=== PATIENT | female | born 1955 | race Caucasian/White ===

== ENCOUNTER → 2018-04-12 | Outpatient (CLI) | payer OTHER ==
[2014-05-13 07:58] VITALS: BP 120/74
[~2018-04-12] MED LIST: ASPI-612 PO; CETI10TA16 PO; CHOL200074 PO; CIPR250T30 PO; CITA40TA5 PO; CLOT15CR4 TP; EXEN10PE3 SQ; GLIM4TAB2 PO; INSU100I17 SQ; INSU100V8 SQ; KETO15CR2 TP; LEVO175T5 PO; LISI-334 PO; MAGN250T10 PO; MELO7.5T29 PO; METF100010 PO; MULT-246 PO; OMEG1CAP28 PO; PROP80CA3 PO; ROPI1TAB PO; SIMV20TA3 PO
--- NOTE | 2018-04-16 19:44 | EEG ---
DATE OF SERVICE: 04/12/2018 EEG NUMBER: [id number]. OBJECTIVE: This is a 62-year-old female patient with history of syncope or seizure-like episodes. EEG was requested to help rule out seizure. METHODS: Twenty electrodes were applied according to the international 10-20 electrode placement system. EKG monitoring, hyperventilation, intermittent photic stimulation, monopolar and bipolar montages are routinely utilized. The record was obtained on a digital system with video monitoring. FINDINGS: 1. Background: The patient was recorded in the awake, drowsy and sleep states. The overall background amplitude is 10-20 microvolts. A posterior dominant rhythm of 8-12 Hz is observed. 2. Abnormalities: No specific epileptiform discharge or electrographic seizure is seen. No focal or diffuse slowing. 3. Activation: Hyperventilation was performed with good efforts and normal response. Intermittent photic stimulation was performed with photic driving. IMPRESSION: This EEG is within the broad normal limits of the study for the awake, drowsy, and sleep states. No focal, lateralizing, specific epileptiform discharge or electrographic seizure is seen. KAITLIN BARRAZA MD DR: MOIRA/patsy JOB#: [id number] / [id number] JONE
== END | disposition home or self-care (01) ==
LOC: RT 08:47
PROVIDERS: ATTEND Psychiatry & Neurology Neurology
DX: R55 Syncope and collapse (principal)
CPT/HCPCS: 95816

== ENCOUNTER → 2018-04-15 | Outpatient (CLI) | payer OTHER ==
[2014-05-13 07:58] VITALS: BP 120/74
[~2018-04-15] MED LIST changes: +DULO60CA6 PO; +GABA100C6 PO; +METF10007 PO; +PANT20TA2 PO; +PROP40TA PO; +ROPI0.5T PO; +SITA25TA PO; +ZOLPIDEM 5 MG TABLET. PO ONE
--- NOTE | 2018-04-18 15:18 | SLEEP ---
DATE OF STUDY: OBJECTIVE: The patient is a 62-year-old female with excessive somnolence, insomnia, restless legs, observed apnea, snoring, fatigue, and awakening short of breath. She did test positive for obstructive sleep apnea 10 years ago and then had bariatric surgery and lost 60 pounds. Height 5 feet 0 inches, weight 180 pounds, body mass index 36. Jackson sleep score 10. INTERPRETATION: Sleep architecture is characterized by sleep efficiency of 89% across the 7 hours of recording time. There was decreased amount of REM sleep. Sleep latency is 3 minutes. Respiratory monitoring shows a total of 56 events, mostly obstructive, for apnea-hypopnea index of 9 events per hour sleep. The minimum oxygen saturation is 87%. The study was then run as a split night study and on 12 cm of CPAP, she had excellent control of her respiratory events. Periodic limb movements of sleep occur at the rate of 16 per hour, 2 events per hour associated with arousal. No significant cardiac arrhythmias are observed. IMPRESSION: 1. Abnormal polysomnogram showing obstructive sleep apnea and hypopnea, treatable on CPAP, 12 cm, using a Resp[employer]ics DreamWear nasal cushions, small size. 2. Also note is made of some mild periodic limb movements of sleep. RECOMMENDATIONS: 1. The patient should be established on the above CPAP setting. 2. She should avoid the supine position and pursue weight loss, and also avoid sedatives and alcohol. 3. She was originally scheduled for a multiple sleep latency test, but the study was canceled because of the positive nighttime study. If sleepiness persists despite treatment of sleep apnea, one could consider returning the patient for a multiple sleep latency test. Thank you for letting us help with the patient's care. ISAIAS REDDY MD DR: MENG/patsy JOB#: [id number] / [id number] PILO Batres FERILYN MD
== END | disposition home or self-care (01) ==
LOC: SLPLAB 19:14
PROVIDERS: ATTEND Psychiatry & Neurology Neurology
DX: G47.33 Obstructive sleep apnea (adult) (pediatric) (principal); G47.61 Periodic limb movement disorder
CPT/HCPCS: 95810

== ENCOUNTER 2018-06-18 09:33 | Inpatient (IN) | payer OTHER ==
[~2018-06-18] VITALS: Ht 153.7 cm; Wt 80.3 kg
[2018-06-18] VITALS (11 sets, daily range): BP systolic 121–145; BP diastolic 56–74
[~2018-06-18 09:33] MED LIST changes: -DULO60CA6 PO; -GABA100C6 PO; -METF10007 PO; -PANT20TA2 PO; -PROP40TA PO; -ROPI0.5T PO; -SITA25TA PO; -ZOLPIDEM 5 MG TABLET. PO ONE
[2018-06-18 10:20] LABS: BILIRUBIN,URINE SMALL (NEG); CLARITY,URINE CLEAR; COLOR,URINE AMBER; NITRITE,URINE NEGATIVE (NEG); PROTEIN,URINE 30 mg/dL (NEG-TRACE)
[2018-06-18 10:26] LABS: BACTERIA,URINE MODERATE /HPF (0-FEW); RBC,URINE 0 /HPF (0-2); SQUAMOUS EPITHELIAL CELL,UR FEW /LPF
--- NOTE | 2018-06-18 10:57 | PHYS DOC ---
Past Medical History Past Medical History: Anxiety, Depression, Diabetes-Type II, High Cholesterol, Hypertension, Hypothyroid, Other Additional Past Medical Histor: RLS, Syncope Past Surgical History: Cholecystectomy, Tonsillectomy, Other Additional Past Surgical Histo: gastric bypass Alcohol Use: Rarely Drug Use: None Adult General Chief Complaint Chief Complaint: NEURO SYMPTOMS/DEFICITS [facility] HPI Patient is a 62 year old female who presents with complaining of confusion. Patient states she has had history of narcolepsy/syncope and get episodes of passing out and yesterday morning had 1 episode of loss of consciousness and contusion of back of her head without remembering a fall or syncopal episode. Patient states she was able to drive to work because of confusion her coworker commented she goes home. Patient was taking to [facility] urgency room yesterday and had unremarkable EKG and labs and CT head and sent home but continued to have confusion without focal neuro deficit. Patient complaining of left temporal headache and rated her pain 8/10 without nausea and blurred physician. Review of Systems Review of Systems Constitutional: Denies fever or chills [] Eyes: Denies change in visual acuity, redness, or eye pain [] HENT: Denies nasal congestion or sore throat [] Respiratory: Denies cough or shortness of breath [] Cardiovascular: No additional information not addressed in HPI [] GI: Denies abdominal pain, nausea, vomiting, bloody stools or diarrhea [] : Denies dysuria or hematuria [] Musculoskeletal: Denies back pain or joint pain [] Integument: Denies rash or skin lesions [] Neurologic: Reports headache confusion, denies focal weakness or sensory changes [] Endocrine: Denies polyuria or polydipsia [] All other systems were reviewed and found to be within normal limits, except as documented in this note. Current Medications Current Medications Allergies Allergies Allergies Coded Allergies Type Severity Reaction Last Updated Verified No Known Drug Allergies 05/11/14 No Physical Exam Physical Exam Constitutional: Well developed, well nourished, mild distress, non-toxic appearance. [] HENT: Normocephalic, atraumatic, bilateral external ears normal, oropharynx moist, no oral exudates, nose normal. [] Eyes: PERRLA, EOMI, conjunctiva normal, no discharge. [] Neck: Normal range of motion, no tenderness, supple, no stridor. [] Cardiovascular:Heart rate regular rhythm, no murmur [] Lungs & Thorax: Bilateral breath sounds clear to auscultation [] Abdomen: Bowel sounds normal, soft, no tenderness, no masses, no pulsatile masses. [] Skin: Warm, dry, no erythema, no rash. [] Back: No tenderness, no CVA tenderness. [] Extremities: No tenderness, no cyanosis, no clubbing, ROM intact, no edema. [] Neurologic: Alert and oriented X 2, normal motor function, normal sensory function, no focal deficits noted, slow to answering the question. [] Psychologic: Affect normal, judgement normal, mood normal. [] Current Patient Data Vital Signs Vital Signs Date Time Temp Pulse Resp B/P (MAP) Pulse Ox O2 Delivery O2 Flow Rate FiO2 06/18/18 09:50 97.9 75 18 162/74 (103) 95 Room Air 97.9 Lab Values Laboratory Tests Test 06/18/18 09:47 06/18/18 10:07 06/18/18 10:50 Urine Collection Type Unknown Urine Color Sierra Urine Clarity Clear Urine pH 6.0 Urine Specific Lykens 1.025 Urine Protein 30 mg/dL (NEG-TRACE) Urine Glucose (UA) Negative mg/dL (NEG) Urine Ketones (Stick) Trace mg/dL (NEG) Urine Blood Negative (NEG) Urine Nitrite Negative (NEG) Urine Bilirubin Small (NEG) Urine Urobilinogen Dipstick 1.0 mg/dL (0.2 mg/dL) Urine Leukocyte Esterase Small (NEG) Urine RBC 0 /HPF (0-2) Urine WBC 5-10 /HPF (0-4) Urine Squamous Epithelial Cells Few /LPF Urine Bacteria Moderate /HPF (0-FEW) Urine Mucus Mod /LPF Glucose (Fingerstick) 124 mg/dL (70-99) H White Blood Count 5.4 x10^3/uL (4.0-11.0) Red Blood Count 4.13 x10^6/uL (3.50-5.40) Hemoglobin 10.3 g/dL (12.0-15.5) L Hematocrit 31.7 % (36.0-47.0) L Mean Corpuscular Volume 77 fL (79-100) L Mean Corpuscular Hemoglobin 25 pg (25-35) Mean Corpuscular Hemoglobin Concent 32 g/dL (31-37) Red Cell Distribution Width 15.6 % (11.5-14.5) H Platelet Count 167 x10^3/uL (140-400) Neutrophils (%) (Auto) 57 % (31-73) Lymphocytes (%) (Auto) 34 % (24-48) Monocytes (%) (Auto) 7 % (0-9) Eosinophils (%) (Auto) 2 % (0-3) Basophils (%) (Auto) 1 % (0-3) Neutrophils # (Auto) 3.1 x10^3uL (1.8-7.7) Lymphocytes # (Auto) 1.8 x10^3/uL (1.0-4.8) Monocytes # (Auto) 0.4 x10^3/uL (0.0-1.1) Eosinophils # (Auto) 0.1 x10^3/uL (0.0-0.7) Basophils # (Auto) 0.1 x10^3/uL (0.0-0.2) Prothrombin Time 13.7 SEC (11.7-14.0) Prothrombin Time INR 1.1 (0.8-1.1) PTT 26 SEC (24-38) Sodium Level 142 mmol/L (136-145) Potassium Level 3.9 mmol/L (3.5-5.1) Chloride Level 103 mmol/L (98-107) Carbon Dioxide Level 30 mmol/L (21-32) Anion Gap 9 (6-14) Blood Urea Nitrogen 9 mg/dL (7-20) Creatinine 0.7 mg/dL (0.6-1.0) Estimated GFR (Cockcroft-Gault) 85.4 BUN/Creatinine Ratio 13 (6-20) Glucose Level 127 mg/dL (70-99) H Calcium Level 8.7 mg/dL (8.5-10.1) Total Bilirubin 0.5 mg/dL (0.2-1.0) Aspartate Amino Transferase (AST) 37 U/L (15-37) Alanine Aminotransferase (ALT) 28 U/L (14-59) Alkaline Phosphatase 117 U/L (46-116) H Troponin I Quantitative 0.018 ng/mL (0.000-0.055) Total Protein 6.3 g/dL (6.4-8.2) L Albumin 3.3 g/dL (3.4-5.0) L Albumin/Globulin Ratio 1.1 (1.0-1.7) Laboratory Tests 06/18/18 10:50 Laboratory Tests 06/18/18 10:50 EKG EKG EKG interpreted by me. EKG at 1052 showed normal sinus rhythm at rate of 68, left fourth axis, normal AL intervals, poor R-wave progress in anteroseptal leads. Radiology/Procedures Radiology/Procedures [facility] [address] [place] [address] IMAGING REPORT Signed PATIENT: NIKI GRESHAM ACCOUNT: [id number] : 1955 LOCATION: ER AGE: 62 SEX: F EXAM STATUS: REG ER ORD. PHYSICIAN: XAVIER WHITAKER MD REASON: fall head injury headache and confusion PROCEDURE: CT HEAD WO CONTRAST CT HEAD WO CONTRAST History: Fall, head injury, headache and confusion Comparison: CT head May 12, 2014 Technique: Noncontrast CT imaging was performed of the head. Exposure: One or more of the following individualized dose reduction techniques were utilized for this examination: 1. Automated exposure control 2. Adjustment of the mA and/or kV according to patient size 3. Use of iterative reconstruction technique. Findings: There is approximate 3.1 cm AP by 2.1 cm transverse focus of apparently parenchymal, hyperdense hemorrhage centered in the posterior left temporal lobe. There is adjacent vasogenic edema signified by ill-defined low density. There is a small focus of hyperdensity just anteriorly probably associated with the left choroid plexus not apparent on previous exam, probable mild hemorrhage. There is no midline shift. Ventricles are normal in size. There is right parietal region scalp soft tissue swelling. Focus of mild ill-defined low-density of the left frontal parenchyma is similar. Impression: 1. There is a focus of recent acute hyperdense parenchymal hemorrhage of the posterior left temporal lobe with adjacent vasogenic edema. There is a small focus of amorphous hemorrhage more anteriorly, may be associated with the choroid plexus. FOR INTERNAL CODING PURPOSES Critical result: Findings discussed with XAVIER WHITAKER at 06/18/2018 10:44 AM. RESULT CODE: (C) Electronically signed by: Randall Watson MD (06/18/2018 10:54 AM) [id number] DICTATED and SIGNED BY: RANDALL WATSON MD DATE: 06/18/18 1054 Course & Med Decision Making Course & Med Decision Making Pertinent Labs and Imaging studies reviewed. (See chart for details) Evaluation of patient in ER showed 62-year-old female patient with a fall yesterday and intracranial hemorrhage with NIH scale of 2. Dr. Patel was consulted at 1047 and recommended to admit patient to ICU. Dr. Helms was consulted at 1104. Patient requiring admission for further evaluation and treatment. Discussed with Dr. Maddox who is in agreement with admission. Discussed findings and plan with patient and family, who acknowledge understanding and agreement. Dragon Disclaimer Dragon Disclaimer This electronic medical record was generated, in whole or in part, using a voice recognition dictation system. Departure Departure Impression: Primary Impression: Intracranial hemorrhage following injury Additional Impression: Confusion Disposition: 09 ADMITTED INPATIENT (at 1118) Condition: GUARDED Referrals: MARNIE WEISS MD (PCP) NIHSS Stroke Scale NIH Stroke Scale: NIH Stroke Scale Response (Comments) Value Level of Consciousness: 0 Alert/Responsive 0 LOC Questions: 1 Answers one correctly 1 LOC Commands: 0 Performs both tasks 0 Best Gaze: 0 Normal 0 Visual: 0 No visual loss 0 Facial Palsy: 0 Normal, symmetrical 0 Motor - Left Arm 0 No drift 0 Motor - Right Arm 0 No drift 0 Motor - Left Leg 0 No drift 0 Motor: Right Leg 0 No drift 0 Limb Ataxia: 0 Absent 0 Sensory: 0 No loss 0 Best Language: 1 Mild to mod aphasia 1 Dysathria: 0 Normal 0 Extinction and Inattention: 0 Normal 0 Total 2 Critical Care Time Critical care time was [] minutes exclusive of procedures. Critical Care Time Critical care time was 80 minutes exclusive of procedures. Problem Qualifiers Primary Impression: Intracranial hemorrhage following injury Encounter type: sequela Loss of consciousness presence/duration: with LOC of unspecified duration Qualified Codes: S06.309S - Unspecified focal traumatic brain injury with loss of consciousness of unspecified duration, sequela XAVIER WHITAKER MD Jun 18, 2018 10:57
[2018-06-18] MEDS ORDERED: fentaNYL PF VIAL 100 MCG/2 ML VIAL IV ONE (11:00)
[2018-06-18] MEDS ORDERED: ONDANSETRON PF 4 MG/2 ML VIAL. IV ONE (11:00)
[2018-06-18 11:04] LABS: BASO # 0.1 x10^3/uL (0.0-0.2); BASO % 1 % (0-3); EOS # 0.1 x10^3/uL (0.0-0.7); EOS % 2 % (0-3); HEMATOCRIT 31.7 % (36.0-47.0); HEMOGLOBIN 10.3 g/dL (12.0-15.5); LYMPH # 1.8 x10^3/uL (1.0-4.8); LYMPH % 34 % (24-48); MEAN CORPUSCULAR HEMOGLOBIN 25 pg (25-35); MEAN CORPUSCULAR HGB CONC 32 g/dL (31-37); MEAN CORPUSCULAR VOLUME 77 fL (79-100); MONO # 0.4 x10^3/uL (0.0-1.1); MONO % 7 % (0-9); NEUT # 3.1 x10^3uL (1.8-7.7); NEUT % 57 % (31-73); PLATELET COUNT 167 x10^3/uL (140-400); RED BLOOD COUNT 4.13 x10^6/uL (3.50-5.40); RED CELL DISTRIBUTION WIDTH 15.6 % (11.5-14.5); WHITE BLOOD COUNT 5.4 x10^3/uL (4.0-11.0)
[2018-06-18 11:09] LABS: CALCIUM 8.7 mg/dL (8.5-10.1); CREATININE 0.7 mg/dL (0.6-1.0); GFR 85.4; POTASSIUM 3.9 mmol/L (3.5-5.1)
[2018-06-18 11:15] LABS: ALBUMIN 3.3 g/dL (3.4-5.0); ALBUMIN/GLOBULIN RATIO 1.1 (1.0-1.7); TOTAL BILIRUBIN 0.5 mg/dL (0.2-1.0); TOTAL PROTEIN 6.3 g/dL (6.4-8.2)
[2018-06-18] MEDS ORDERED: LABETALOL 20 MG/4 ML DISP.SYRIN. IVP PRN (11:15)
[2018-06-18] MEDS ORDERED: ACETAMINOPHEN 650 MG SUPP.RECT. PR PRN (11:15)
[2018-06-18] MEDS ORDERED: ONDANSETRON PF 4 MG/2 ML VIAL. IV PRN (11:15)
[2018-06-18] MEDS ORDERED: hydrALAZINE 20 MG/ML VIAL. IVP PRN (11:15)
[2018-06-18] MEDS ORDERED: PHARMACY TO REVIEW MEDS MC PRN (11:15)
[2018-06-18] MEDS ORDERED: 0.9 % SODIUM CHLORIDE 10 ML DISP.SYRIN. IV PRN (11:15)
[2018-06-18 11:21] LABS: PROTHROMBIN TIME PATIENT 13.7 SEC (11.7-14.0)
--- NOTE | 2018-06-18 11:21 | EKG ---
[facility] [address] [place] [address] Test Date: 2018-06-18 Test Time: 10:52:41 Pat Name: NIKI GRESHAM Department: Room: Gender: F Maintenance Supervisor Mechanical: : 1955 Requested By: XAVIER WHITAKER Order Number: [id number] Reading MD: Hima Lomeli Measurements Intervals [place]illman Rate: 68 P: -31 NM: 126 QRS: -8 QRSD: 90 T: 14 QT: 418 QTc: 449 Interpretive Statements SINUS RHYTHM LEFTWARD AXIS LEFT VENTRICULAR HYPERTROPHY POSSIBLY ABNORMAL ECG Electronically Signed On 06-24-2018 13:05:06 CDT by Hima Lomeli
[2018-06-18] MEDS: IV NORMAL SALINE 1000ML BAG 1,000 ML IV SCH ×2 (11:22→21:57)
[2018-06-18] MEDS ORDERED: CONTRAST GIVEN. MC PRN ×2 (11:45→12:15)
[2018-06-18] MEDS ORDERED: IOHEXOL 300 MG/ML 100ML VIAL. IV ONE ×2 (11:45→12:00)
--- NOTE | 2018-06-18 11:51 | PDOC1 ---
History and Physical Date of Admission Date of Admission DATE: 06/18/18 TIME: 11:48 Identification/Chief Complaint Chief Complaint Confusion Fall Source Source: Caregiver, Chart review, Patient History of Present Illness History of Present Illness Ms Stearns is a 62yo F w/ PMHx Anxiety, Depression, Diabetes-Type II, High Cholesterol, Hypertension, Hypothyroid s/p radioactive iodine ablation, RLS, Syncope, narcolepsy/cataplexy, YUKI on CPAP (about to start using), Obesity s/p gastric bypass who present to ED with progressive confusion and word finding difficulty after a fall @ 7am 06/17/18. She has had a headache for the past 2-3 days as well prior to this. Was seen in [facility] ED after her co-workers noted she was acting strangely yesterday after her fall. She had a negative head CT at the time and was sent home. She is aware of her word finding deficit and finds it frustrating. She still had headache and was feeling strange this morning with word finding difficulty and confusion noted by her significant other. Head CT in our ED showed a hemorrhage in the left temporal lobe 3x2cm approximately. On further review based on sleep study with polysomnogram in April had been prescribed a CPAP 12cm H2O which is set to deliver to her house later this week. Past Medical History Cardiovascular: HTN, Hyperlipidemia CENTRAL NERVOUS SYSTEM: Other GI: No pertinent hx Heme/Onc: Anemia NOS Hepatobiliary: No pertinent hx Psych: Depression Musculoskeletal: Osteoarthritis Rheumatologic: No pertinent hx Infectious disease: No pertinent hx Renal/: No pertinent hx Endocrine: Diabetes, Hypothyroidism Past Surgical History Past Surgical History: Cholecystectomy, Tonsillectomy, Other (Gastric bypass) Family History Family History: Stroke, Other Social History Smoke: No ALCOHOL: none Drugs: None Current Problem List Problem List Problems Medical Problems: (1) Confusion Status: Acute (2) Intracranial hemorrhage following injury Status: Acute Current Medications Current Medications Current Medications Ondansetron HCl (Zofran) 4 mg 1X ONCE IV Last administered on 06/18/18at 11:18 ; Start 06/18/18 at 11:00; Stop 06/18/18 at 11:01; Status DC Fentanyl Citrate (Fentanyl 2ml Vial) 50 mcg 1X ONCE IV Last administered on at 11:18; Start 06/18/18 at 11:00; Stop 06/18/18 at 11:01; Status DC Info (Review Meds) 1 ea PRN 1X PRN MC SEE COMMENTS; Start 06/18/18 at 11:15 Sodium Chloride (Normal Saline Flush) 3 ml QSHIFT PRN IV AFTER MEDS AND BLOOD DRAWS; Start 06/18/18 at 11:15 Sodium Chloride 1,000 ml @ 100 mls/hr Q10H IV Last administered on 06/18/18at 11:22; Start 06/18/18 at 11:07 Acetaminophen (Tylenol Supp) 650 mg PRN Q6HRS PRN RI FEVER > 100.5'F; Start at 11:15 Labetalol HCl (Normodyne Iv Push) 10 mg PRN Q10MIN PRN IVP HYPERTENSION, SEE COMMENTS; Start 06/18/18 at 11:15 Hydralazine HCl (Apresoline Inj) 10 mg PRN Q10MIN PRN IVP HYPERTENSION, SEE COMMENTS; Start 06/18/18 at 11:15 Nicardipine HCl 50 mg/Sodium Chloride 250 ml @ 25 mls/hr CONT PRN IV HYPERTENSION, SEE COMMENTS; Start 06/18/18 at 11:15 Ondansetron HCl (Zofran) 4 mg PRN Q6HRS PRN IV NAUSEA/VOMITING; Start 06/18/18 at 11:15 Iohexol (Omnipaque 300 Mg/ml) 75 ml 1X ONCE IV ; Start 06/18/18 at 11:45; Stop 06/18/18 at 11:46; Status DC Info (CONTRAST GIVEN -- Rx MONITORING) 1 each PRN DAILY PRN MC SEE COMMENTS; Start 06/18/18 at 11:45; Stop 06/20/18 at 11:44 Active Scripts Active Cipro (Ciprofloxacin Hcl) 250 Mg Tablet 1 Tab PO BID 5 Days Aspirin Ec (Aspirin) 81 Mg Tablet.dr 1 Tab PO DAILY Reported Cetirizine Hcl 10 Mg Tablet 1 Tab PO BID Fish Oil 1,200 Mg Softgel ([place]ountain-3 Fatty Acids/Fish Oil) 1 Each Capsule 1 Each PO DAILY Vitamin D-3 (Cholecalciferol (Vitamin D3)) 2,000 Unit Capsule 1,000 Unit PO DAILY Multi-Vitamin Daily (Multivitamin) 1 Each Tablet 1 Each PO DAILY Simvastatin 20 Mg Tablet 1 Tab PO QHS Propranolol Hcl 80 Mg Cap.sa.24h 120 Mg PO HS Requip (Ropinirole Hcl) 1 Mg Tablet 2 Tab PO DAILY Citalopram Hbr (Citalopram Hydrobromide) 40 Mg Tablet 1 Tab PO DAILY Lisinopril 20 Mg Tablet 1 Tab PO DAILY Levothyroxine Sodium 175 Mcg Tablet 1 Tab PO DAILY Lantus (Insulin Glargine,Hum.rec.anlog) 100 Unit/1 Ml Vial 23 Unit SQ HS Novolog Flexpen (Insulin Aspart) 100 Unit/1 Ml Insuln.pen 10 Unit SQ TID Allergies Allergies: Coded Allergies: No Known Drug Allergies (Unverified , 05/11/14) ROS General: YES: Fatigue, Malaise; No: Chills, Night Sweats, Appetite, Other PSYCHOLOGICAL ROS: YES: Anxiety, Irritablity, Sleep disturbances; No: Behavioral Disorder, Concentration difficultie, Decreased libido, Depression, Disorientation, Hallucinations, Hostility, Memory difficulties, Mood Swings, Obsessive thoughts, Physical abuse, Sexual abuse, Suicidal ideation , Other Eyes: No Blurry vision, No Decreased vision, No Double vision, No Dry eyes, No Excessive tearing, No Eye Pain, No Itchy Eyes, No Loss of vision, No Photophobia , No Scotomata, No Uses contacts, No Uses glasses, No Other HEENT: No: Heacaches, Visual Changes, Hearing change, Nasal congestion, Nasal discharge, Oral lesions, Sinus pain, Sore Throat, Epistaxis, Sneezing, Snoring, Tinnitus, Vertigo, Vocal changes, Other ALLERGY AND IMMUNOLOGY: No: Hives, Insect Bite Sensitivity, Itchy/Watery Eyes, Nasal Congestion, Post Nasal Drip, Seasonal Allergies, Other Hematological and Lymphatic: No: Bleeding Problems, Blood Clots, Blood Transfusions, Brusing, Night Sweats, Pallor, Swollen Lymph Nodes, Other ENDOCRINE: No: Breast Changes, Galactorrhea, Hair Pattern Changes, Hot Flashes , Malaise/lethargy, Mood Swings, Palpitations, Polydipsia/polyuria, Skin Changes , Temperature Intolerance, Unexpected Weight Changes, Other Breast: No New/Changing Breast Lumps, No Nipple changes, No Nipple discharge, No Other Respiratory: No: Cough, Hemoptysis, Orthopnea, Pleuritic Pain, Shortness of breath, SOB with excertion, Sputum Changes, Stridor, Tachypnea, Wheezing, Other Cardiovascular: No Chest Pain, No Palpitations, No Orthopnea, No Paroxysmal Noc. Dyspnea, No Edema, No Lt Headedness, No Other Gastrointestinal: No Nausea, No Vomiting, No Abdominal Pain, No Diarrhea, No Constipation, No Melena, No Hematochezia, No Other Genitourinary: No Dysuria, No Frequency, No Incontinence, No Hematuria, No Retention, No Discharge, No Urgency, No Pain, No Flank Pain, No Other, No , No , No , No , No , No , No Musculoskeletal: Yes Gait Disturbance Neurological: Yes Confusion, Yes Dizziness, Yes Gait Disturbance, Yes Headaches , Yes Impaired Coord/balance, Yes Memory Loss, Yes Speech Problems; No Behavorial Changes, No Bowel/Bladder ControlChng, No Numbness/Tingling, No Seizures, No Tremors, No Visual Changes, No Weakness, No Other Skin: No Dry Skin, No Eczema, No Hair Changes, No Lumps, No Mole Changes, No Mottling, No Nail Changes, No Pruritus, No Rash, No Skin Lesion Changes, No Other, No Acne Physical Exam General: Alert, Oriented X3, Cooperative, No acute distress HEENT: PERRLA, EOMI, Mucous membr. moist/pink, Other (Posterior scalp hematoma with abrasion, midline) Heart: S1S2, RRR, no gallops, no murmurs Abdomen: Normal bowel sounds, Soft, No tenderness, No hepatosplenomegaly, No masses Rectal Exam: not examined Extremities: No clubbing, No cyanosis, No edema, Normal pulses, No tenderness/ swelling Skin: No rashes, No breakdown, No significant lesion Neuro: Strength at 5/5 X4 ext, Normal tone, Cranial nerves 3-12 NL, Reflexes 2+ , Other (Decreased peripheral sensation) Psych/Mental Status: Other (Word finding difficulty) Vitals Vitals Vital Signs Date Time Temp Pulse Resp B/P (MAP) Pulse Ox O2 Delivery O2 Flow Rate FiO2 06/18/18 11:18 16 97 Room Air 06/18/18 09:50 97.9 75 162/74 (103) 97.9 Labs Labs Laboratory Tests Test 06/18/18 09:47 06/18/18 10:07 06/18/18 10:50 Urine Collection Type Unknown Urine Color [place] Urine Clarity Clear Urine pH 6.0 Urine Specific [place] 1.025 Urine Protein 30 mg/dL (NEG-TRACE) Urine Glucose (UA) Negative mg/dL (NEG) Urine Ketones (Stick) Trace mg/dL (NEG) Urine Blood Negative (NEG) Urine Nitrite Negative (NEG) Urine Bilirubin Small (NEG) Urine Urobilinogen Dipstick 1.0 mg/dL (0.2 mg/dL) Urine Leukocyte Esterase Small (NEG) Urine RBC 0 /HPF (0-2) Urine WBC 5-10 /HPF (0-4) Urine Squamous Epithelial Cells Few /LPF Urine Bacteria Moderate /HPF (0-FEW) Urine Mucus Mod /LPF Glucose (Fingerstick) 124 mg/dL (70-99) White Blood Count 5.4 x10^3/uL (4.0-11.0) Red Blood Count 4.13 x10^6/uL (3.50-5.40) Hemoglobin 10.3 g/dL (12.0-15.5) Hematocrit 31.7 % (36.0-47.0) Mean Corpuscular Volume 77 fL (79-100) Mean Corpuscular Hemoglobin 25 pg (25-35) Mean Corpuscular Hemoglobin Concent 32 g/dL (31-37) Red Cell Distribution Width 15.6 % (11.5-14.5) Platelet Count 167 x10^3/uL (140-400) Neutrophils (%) (Auto) 57 % (31-73) Lymphocytes (%) (Auto) 34 % (24-48) Monocytes (%) (Auto) 7 % (0-9) Eosinophils (%) (Auto) 2 % (0-3) Basophils (%) (Auto) 1 % (0-3) Neutrophils # (Auto) 3.1 x10^3uL (1.8-7.7) Lymphocytes # (Auto) 1.8 x10^3/uL (1.0-4.8) Monocytes # (Auto) 0.4 x10^3/uL (0.0-1.1) Eosinophils # (Auto) 0.1 x10^3/uL (0.0-0.7) Basophils # (Auto) 0.1 x10^3/uL (0.0-0.2) Prothrombin Time 13.7 SEC (11.7-14.0) Prothromb Time International Ratio 1.1 (0.8-1.1) Activated Partial Thromboplast Time 26 SEC (24-38) Sodium Level 142 mmol/L (136-145) Potassium Level 3.9 mmol/L (3.5-5.1) Chloride Level 103 mmol/L (98-107) Carbon Dioxide Level 30 mmol/L (21-32) Anion Gap 9 (6-14) Blood Urea Nitrogen 9 mg/dL (7-20) Creatinine 0.7 mg/dL (0.6-1.0) Estimated GFR (Cockcroft-Gault) 85.4 BUN/Creatinine Ratio 13 (6-20) Glucose Level 127 mg/dL (70-99) Calcium Level 8.7 mg/dL (8.5-10.1) Total Bilirubin 0.5 mg/dL (0.2-1.0) Aspartate Amino Transf (AST/SGOT) 37 U/L (15-37) Alanine Aminotransferase (ALT/SGPT) 28 U/L (14-59) Alkaline Phosphatase 117 U/L (46-116) Troponin I Quantitative 0.018 ng/mL (0.000-0.055) Total Protein 6.3 g/dL (6.4-8.2) Albumin 3.3 g/dL (3.4-5.0) Albumin/Globulin Ratio 1.1 (1.0-1.7) Laboratory Tests Test 06/18/18 09:47 06/18/18 10:07 06/18/18 10:50 Urine Collection Type Unknown Urine Color [place] Urine Clarity Clear Urine pH 6.0 Urine Specific [place] 1.025 Urine Protein 30 mg/dL (NEG-TRACE) Urine Glucose (UA) Negative mg/dL (NEG) Urine Ketones (Stick) Trace mg/dL (NEG) Urine Blood Negative (NEG) Urine Nitrite Negative (NEG) Urine Bilirubin Small (NEG) Urine Urobilinogen Dipstick 1.0 mg/dL (0.2 mg/dL) Urine Leukocyte Esterase Small (NEG) Urine RBC 0 /HPF (0-2) Urine WBC 5-10 /HPF (0-4) Urine Squamous Epithelial Cells Few /LPF Urine Bacteria Moderate /HPF (0-FEW) Urine Mucus Mod /LPF Glucose (Fingerstick) 124 mg/dL (70-99) White Blood Count 5.4 x10^3/uL (4.0-11.0) Red Blood Count 4.13 x10^6/uL (3.50-5.40) Hemoglobin 10.3 g/dL (12.0-15.5) Hematocrit 31.7 % (36.0-47.0) Mean Corpuscular Volume 77 fL (79-100) Mean Corpuscular Hemoglobin 25 pg (25-35) Mean Corpuscular Hemoglobin Concent 32 g/dL (31-37) Red Cell Distribution Width 15.6 % (11.5-14.5) Platelet Count 167 x10^3/uL (140-400) Neutrophils (%) (Auto) 57 % (31-73) Lymphocytes (%) (Auto) 34 % (24-48) Monocytes (%) (Auto) 7 % (0-9) Eosinophils (%) (Auto) 2 % (0-3) Basophils (%) (Auto) 1 % (0-3) Neutrophils # (Auto) 3.1 x10^3uL (1.8-7.7) Lymphocytes # (Auto) 1.8 x10^3/uL (1.0-4.8) Monocytes # (Auto) 0.4 x10^3/uL (0.0-1.1) Eosinophils # (Auto) 0.1 x10^3/uL (0.0-0.7) Basophils # (Auto) 0.1 x10^3/uL (0.0-0.2) Prothrombin Time 13.7 SEC (11.7-14.0) Prothromb Time International Ratio 1.1 (0.8-1.1) Activated Partial Thromboplast Time 26 SEC (24-38) Sodium Level 142 mmol/L (136-145) Potassium Level 3.9 mmol/L (3.5-5.1) Chloride Level 103 mmol/L (98-107) Carbon Dioxide Level 30 mmol/L (21-32) Anion Gap 9 (6-14) Blood Urea Nitrogen 9 mg/dL (7-20) Creatinine 0.7 mg/dL (0.6-1.0) Estimated GFR (Cockcroft-Gault) 85.4 BUN/Creatinine Ratio 13 (6-20) Glucose Level 127 mg/dL (70-99) Calcium Level 8.7 mg/dL (8.5-10.1) Total Bilirubin 0.5 mg/dL (0.2-1.0) Aspartate Amino Transf (AST/SGOT) 37 U/L (15-37) Alanine Aminotransferase (ALT/SGPT) 28 U/L (14-59) Alkaline Phosphatase 117 U/L (46-116) Troponin I Quantitative 0.018 ng/mL (0.000-0.055) Total Protein 6.3 g/dL (6.4-8.2) Albumin 3.3 g/dL (3.4-5.0) Albumin/Globulin Ratio 1.1 (1.0-1.7) Images Images CT Head - 1. There is a focus of recent acute hyperdense parenchymal hemorrhage of the posterior left temporal lobe with adjacent vasogenic edema. There is a small focus of amorphous hemorrhage more anteriorly, may be associated with the choroid plexus. VTE Prophylaxis Ordered VTE Prophylaxis Devices: Yes VTE Pharmacological Prophylaxi: Yes Assessment/Plan Assessment/Plan A/P: Fall - scalp hematoma and left temporal hemorrhage 3.1 cm by 2.1 cm posterior left temporal lobe hemorrhage and mild hemorrhage in left choroid plexus - , difficult to say if this is traumatic or CVA. Will consult neurosurgery and neurology. Now at some risk of seizure, no hx of seizures Headache - likely 2/2 intracranial hemorrhage History of syncope - seen by Dr. Monreal previously, narcolepsy/cataplexy Anxiety - cont home meds Depression - cont home meds Diabetes-Type II - sliding scale basal bolus in hour High Cholesterol - needs high intensity statin Hypertension - will manage in ICU Hypothyroid s/p radioactive iodine ablation - on 175mcg replacement therapy, continue RLS - cont meds if ok with neuro YUKI on CPAP - will not initiate based on intracranial hemorrhage FEN - Ok for ADA diet PPX - SCDs FULL CODE ICU admission for intracranial hemorrhage, at least 2 midnights NUZHAT WALKER MD Jun 18, 2018 11:50
--- NOTE | 2018-06-18 12:59 | RAD ---
Examination: CT ANGIOGRAPHY HEAD AND NECK History: ICH OMNI 300 75ML Comparison/Correlation: None Findings: Axial images of the head and neck were obtained following IV contrast according to arteriography protocol. MIP images provided. 3-D volume rendered images of the head and neck arterial vasculature provided. [place] is unremarkable. No stenosis of intracranial arterial vasculature definitely identified. Dural sinuses opacify normally with contrast. Left posterior temporal lobe hematoma measuring 3.9 cm anteroposterior by 1.2 cm superoinferior by 2 cm transverse with surrounding edema is present. There is no suspicious vascular structures within or about this lesion on arterial phase imaging. Ventricles are unremarkable with no intraventricular hemorrhage. Choroid plexus is unremarkable bilaterally. Circumferential calcification involving the right vertebral artery as very superior aspect is notable. No significant stenosis. Left internal artery is unremarkable although it is tortuous at its very proximal aspect. Calcific involvement of the proximal left internal carotid artery is evident. No significant stenosis. Right internal carotid arteries unremarkable. Common carotid arteries are normal. External carotid arteries are unremarkable. The right brachiocephalic and left subclavian arteries are unremarkable. Kinked appearance of the right axillary artery proximally. Soft tissues of the neck are unremarkable. No enlarged lymph nodes. Soft tissues of the head are unremarkable. Globes and optic nerves are unremarkable. Mild emphysematous involvement of the lung desir noted. Severe C5-C7 disc space narrowing is present with spurring. Effacement of the thecal sac at C5-6 due to spurring is evident. Spinal canal stenosis of slightly greater than 50% noted. Impression: No significant stenoses identified to involve the arterial vasculature of the head or neck. Left temporal lobe hematoma. No abnormal vascular structures as would be expected of an arteriovenous malformation. Consider further evaluation MRI if able without and with contrast to assess for underlying mass lesion. PQRS Compliance Statement - Stenosis calculations for CT, MR and conventional angiography are based upon measurement of the distal ICA diameter in accordance with the NASCET methodology. Stenosis calculations for carotid ultrasound studies are derived from validated velocity criteria which are known to correlate with the NASCET methodology. *One or more of the following individualized dose reduction techniques were utilized for this examination: 1. Automated exposure control. 2. Adjustment of the mA and/or kV according to patient size. 3. Use of iterative reconstruction technique. Electronically signed by: Raffaele Godinez MD (06/18/2018 12:56 PM) [id number]
--- NOTE | 2018-06-18 13:07 | RAD ---
MRI Brain without contrast History: CVA, weakness Technique: Multiplanar, multisequential noncontrast MR imaging was performed of the brain. Comparison: Head CT earlier the same day Findings: As seen on CT, there is a fairly large focus of parenchymal hemorrhage centered in the left temporal lobe. This in isointense on the T1 sequence and mostly hypointense on T2 sequence. This is estimated about 3 cm AP by 1.8 cm transverse by about 1.1 cm cc. There is adjacent vasogenic edema signified by T2 and FLAIR hyperintense signal. There is associated prominent decreased signal on gradient echo sequence. There is some associated diffusion signal abnormality within the region of hematoma and minimally at the periphery. There is no midline shift. Ventricular size is within normal limits. There is mild T2 and FLAIR hyperintense signal abnormality of the supratentorial periventricular white matter bilaterally and also the mo. There is scattered overall mild T2 and FLAIR hyperintense signal abnormality of the supratentorial deep white matter most notable of the bilateral minor radiata left greater than right. There is mild right parietal region scalp soft tissue swelling. Paranasal sinuses are overall aerated. There is minimal patchy fluid and thickening of the right mastoid air cells. There is preservation of the major arterial flow voids at the skull base. Impression: 1. As seen on recent CT, there is acute parenchymal hematoma of the left temporal lobe with adjacent vasogenic edema. There is some associated diffusion signal abnormality. Diffusion signal change can be associated with hematoma although could also be related to hemorrhagic transformation of recent infarct. 2. There is other scattered relatively mild T2 and FLAIR hyperintense signal abnormality of the supratentorial parenchyma and mo, possibly due to chronic microvascular ischemic disease. Pattern is not particularly suggestive of an inflammatory demyelinating disease. Electronically signed by: Dwayne Watson MD (06/18/2018 1:04 PM) [id number]
--- NOTE | 2018-06-18 13:17 | PDOC2 ---
NEUROLOGY CONSULT Date of Admission Date of Admission DATE: 06/18/18 TIME: 13:03 Reason for Consult Reason for Consult: Cerebral hemorrhage Referring Physician Referring Physician: Dr. Maddox PCP: Dr. Bonner Source Source: Chart review, Patient History of Present Illness History of Present Illness The patient is a 62-year-old right-handed female who has had a headache for the past 2 or 3 days. Before work yesterday she fell and hit the back of her head without loss of consciousness. Coworkers felt that she was acting strangely and she also had a headache so she went to the [facility] emergency department where she had a negative head CT. She still had headache and was feeling strange this morning so came to our emergency department. She did have the CT of the head as he viewed below. She also has had CT angiogram and MRI, also reviewed below. She follows with my associate, Dr. Monreal for history of syncope. Long-term video EEG 4 years ago was negative. I interpreted a polysomnogram, 04/18/18, showing sleep apnea treatable with CPAP (12 cm, RespirLoci Controlss Dreamweaver nasal cushions, small size). She has not received the machine yet, though. She does have excessive somulence. She has hit her head in these syncopal episodes. There is no history of seizure. 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, no alcohol or tobacco Current Medications Current Medications Current Medications Ondansetron HCl (Zofran) 4 mg 1X ONCE IV Last administered on 06/18/18at 11:18 ; Start 06/18/18 at 11:00; Stop 06/18/18 at 11:01; Status DC Fentanyl Citrate (Fentanyl 2ml Vial) 50 mcg 1X ONCE IV Last administered on at 11:18; Start 06/18/18 at 11:00; Stop 06/18/18 at 11:01; Status DC Info (Review Meds) 1 ea PRN 1X PRN MC SEE COMMENTS; Start 06/18/18 at 11:15 Sodium Chloride (Normal Saline Flush) 3 ml QSHIFT PRN IV AFTER MEDS AND BLOOD DRAWS; Start 06/18/18 at 11:15 Sodium Chloride 1,000 ml @ 100 mls/hr Q10H IV Last administered on 06/18/18at 11:22; Start 06/18/18 at 11:07 Acetaminophen (Tylenol Supp) 650 mg PRN Q6HRS PRN CA FEVER > 100.5'F; Start at 11:15 Labetalol HCl (Normodyne Iv Push) 10 mg PRN Q10MIN PRN IVP HYPERTENSION, SEE COMMENTS; Start 06/18/18 at 11:15 Hydralazine HCl (Apresoline Inj) 10 mg PRN Q10MIN PRN IVP HYPERTENSION, SEE COMMENTS; Start 06/18/18 at 11:15 Nicardipine HCl 50 mg/Sodium Chloride 250 ml @ 25 mls/hr CONT PRN IV HYPERTENSION, SEE COMMENTS Last administered on 06/18/18at 11:54; Start 06/18/18 at 11:15 Ondansetron HCl (Zofran) 4 mg PRN Q6HRS PRN IV NAUSEA/VOMITING; Start 06/18/18 at 11:15 Iohexol (Omnipaque 300 Mg/ml) 75 ml 1X ONCE IV Last administered on 06/18/18at 12:11; Start 06/18/18 at 11:45; Stop 06/18/18 at 11:46; Status DC Info (CONTRAST GIVEN -- Rx MONITORING) 1 each PRN DAILY PRN MC SEE COMMENTS; Start 06/18/18 at 11:45; Stop 06/20/18 at 11:44 Iohexol (Omnipaque 300 Mg/ml) 75 ml 1X ONCE IV ; Start 06/18/18 at 12:00; Stop 06/18/18 at 12:03; Status DC Info (CONTRAST GIVEN -- Rx MONITORING) 1 each PRN DAILY PRN MC SEE COMMENTS; Start 06/18/18 at 12:15; Stop 06/20/18 at 12:14 Active Scripts Active Cipro (Ciprofloxacin Hcl) 250 Mg Tablet 1 Tab PO BID 5 Days Aspirin Ec (Aspirin) 81 Mg Tablet.dr 1 Tab PO DAILY Reported Cetirizine Hcl 10 Mg Tablet 1 Tab PO BID Fish Oil 1,200 Mg Softgel (Randolph-3 Fatty Acids/Fish Oil) 1 Each Capsule 1 Each PO DAILY Vitamin D-3 (Cholecalciferol (Vitamin D3)) 2,000 Unit Capsule 1,000 Unit PO DAILY Multi-Vitamin Daily (Multivitamin) 1 Each Tablet 1 Each PO DAILY Simvastatin 20 Mg Tablet 1 Tab PO QHS Propranolol Hcl 80 Mg Cap.sa.24h 120 Mg PO HS Requip (Ropinirole Hcl) 1 Mg Tablet 2 Tab PO DAILY Citalopram Hbr (Citalopram Hydrobromide) 40 Mg Tablet 1 Tab PO DAILY Lisinopril 20 Mg Tablet 1 Tab PO DAILY Levothyroxine Sodium 175 Mcg Tablet 1 Tab PO DAILY Lantus (Insulin Glargine,Hum.rec.anlog) 100 Unit/1 Ml Vial 23 Unit SQ HS Novolog Flexpen (Insulin Aspart) 100 Unit/1 Ml Insuln.pen 10 Unit SQ TID Allergies Allergies: Coded Allergies: No Known Drug Allergies (Unverified , 05/11/14) ROS Review of System Negative for fever, chills, weight loss, shortness of breath, chest pain, indigestion, hematochezia, melena, and dysuria. Full 14-point review of systems is negative. Physical Exam Physical Examination General: Well-developed, well-nourished white female in no acute distress HEENT: Normocephalic andatraumatic. Temporal arteriespulsatile and nontender. Neck: Supple without bruit, no meningismus Musculoskeletal: Stability:see neurologic. Gait exam:see neurologic. Tone:see neurologic. Strength:see neurologic. Neurological: Mental Status:orientation, memory, attention span/concentration, language, fund of knowledge: there is some dysnomia, speech is fluent, she has some trouble following [id number] commands normal. Cranial Nerves:Pupils equal and reactive to light, extraocular movements areintact, visual desir are full to confrontation. Facial sensation is normal. There is no facial asymmetry. Vestibulo-ocular reflex is intact. Palate elevates and tongue protrudes in midline. All other cranial related problems are negative except as mentioned before.Reflexes:2+ and symmetric with flexor plantar responses. Motor:5/5 strength with normal tone and bulk. Coordination:Finger-nose finger and zyqj-[id number] testing are normal. Rapid alternating movements and fine finger movements are intact. Gait:Normal, including tandem. Sensory:Normal pinprick, vibration, light touch, proprioception. Vitals VITALS Vital Signs Date Time Temp Pulse Resp B/P (MAP) Pulse Ox O2 Delivery O2 Flow Rate FiO2 06/18/18 11:18 16 97 Room Air 06/18/18 09:50 97.9 75 162/74 (103) 97.9 Labs Labs Laboratory Tests Test 06/18/18 09:47 06/18/18 10:07 06/18/18 10:50 Urine Collection Type Unknown Urine Color Sierra Urine Clarity Clear Urine pH 6.0 Urine Specific Edwards 1.025 Urine Protein 30 mg/dL (NEG-TRACE) Urine Glucose (UA) Negative mg/dL (NEG) Urine Ketones (Stick) Trace mg/dL (NEG) Urine Blood Negative (NEG) Urine Nitrite Negative (NEG) Urine Bilirubin Small (NEG) Urine Urobilinogen Dipstick 1.0 mg/dL (0.2 mg/dL) Urine Leukocyte Esterase Small (NEG) Urine RBC 0 /HPF (0-2) Urine WBC 5-10 /HPF (0-4) Urine Squamous Epithelial Cells Few /LPF Urine Bacteria Moderate /HPF (0-FEW) Urine Mucus Mod /LPF Glucose (Fingerstick) 124 mg/dL (70-99) White Blood Count 5.4 x10^3/uL (4.0-11.0) Red Blood Count 4.13 x10^6/uL (3.50-5.40) Hemoglobin 10.3 g/dL (12.0-15.5) Hematocrit 31.7 % (36.0-47.0) Mean Corpuscular Volume 77 fL (79-100) Mean Corpuscular Hemoglobin 25 pg (25-35) Mean Corpuscular Hemoglobin Concent 32 g/dL (31-37) Red Cell Distribution Width 15.6 % (11.5-14.5) Platelet Count 167 x10^3/uL (140-400) Neutrophils (%) (Auto) 57 % (31-73) Lymphocytes (%) (Auto) 34 % (24-48) Monocytes (%) (Auto) 7 % (0-9) Eosinophils (%) (Auto) 2 % (0-3) Basophils (%) (Auto) 1 % (0-3) Neutrophils # (Auto) 3.1 x10^3uL (1.8-7.7) Lymphocytes # (Auto) 1.8 x10^3/uL (1.0-4.8) Monocytes # (Auto) 0.4 x10^3/uL (0.0-1.1) Eosinophils # (Auto) 0.1 x10^3/uL (0.0-0.7) Basophils # (Auto) 0.1 x10^3/uL (0.0-0.2) Prothrombin Time 13.7 SEC (11.7-14.0) Prothromb Time International Ratio 1.1 (0.8-1.1) Activated Partial Thromboplast Time 26 SEC (24-38) Sodium Level 142 mmol/L (136-145) Potassium Level 3.9 mmol/L (3.5-5.1) Chloride Level 103 mmol/L (98-107) Carbon Dioxide Level 30 mmol/L (21-32) Anion Gap 9 (6-14) Blood Urea Nitrogen 9 mg/dL (7-20) Creatinine 0.7 mg/dL (0.6-1.0) Estimated GFR (Cockcroft-Gault) 85.4 BUN/Creatinine Ratio 13 (6-20) Glucose Level 127 mg/dL (70-99) Calcium Level 8.7 mg/dL (8.5-10.1) Total Bilirubin 0.5 mg/dL (0.2-1.0) Aspartate Amino Transf (AST/SGOT) 37 U/L (15-37) Alanine Aminotransferase (ALT/SGPT) 28 U/L (14-59) Alkaline Phosphatase 117 U/L (46-116) Troponin I Quantitative 0.018 ng/mL (0.000-0.055) Total Protein 6.3 g/dL (6.4-8.2) Albumin 3.3 g/dL (3.4-5.0) Albumin/Globulin Ratio 1.1 (1.0-1.7) Laboratory Tests Test 06/18/18 09:47 06/18/18 10:07 06/18/18 10:50 Urine Collection Type Unknown Urine Color Sierra Urine Clarity Clear Urine pH 6.0 Urine Specific Edwards 1.025 Urine Protein 30 mg/dL (NEG-TRACE) Urine Glucose (UA) Negative mg/dL (NEG) Urine Ketones (Stick) Trace mg/dL (NEG) Urine Blood Negative (NEG) Urine Nitrite Negative (NEG) Urine Bilirubin Small (NEG) Urine Urobilinogen Dipstick 1.0 mg/dL (0.2 mg/dL) Urine Leukocyte Esterase Small (NEG) Urine RBC 0 /HPF (0-2) Urine WBC 5-10 /HPF (0-4) Urine Squamous Epithelial Cells Few /LPF Urine Bacteria Moderate /HPF (0-FEW) Urine Mucus Mod /LPF Glucose (Fingerstick) 124 mg/dL (70-99) White Blood Count 5.4 x10^3/uL (4.0-11.0) Red Blood Count 4.13 x10^6/uL (3.50-5.40) Hemoglobin 10.3 g/dL (12.0-15.5) Hematocrit 31.7 % (36.0-47.0) Mean Corpuscular Volume 77 fL (79-100) Mean Corpuscular Hemoglobin 25 pg (25-35) Mean Corpuscular Hemoglobin Concent 32 g/dL (31-37) Red Cell Distribution Width 15.6 % (11.5-14.5) Platelet Count 167 x10^3/uL (140-400) Neutrophils (%) (Auto) 57 % (31-73) Lymphocytes (%) (Auto) 34 % (24-48) Monocytes (%) (Auto) 7 % (0-9) Eosinophils (%) (Auto) 2 % (0-3) Basophils (%) (Auto) 1 % (0-3) Neutrophils # (Auto) 3.1 x10^3uL (1.8-7.7) Lymphocytes # (Auto) 1.8 x10^3/uL (1.0-4.8) Monocytes # (Auto) 0.4 x10^3/uL (0.0-1.1) Eosinophils # (Auto) 0.1 x10^3/uL (0.0-0.7) Basophils # (Auto) 0.1 x10^3/uL (0.0-0.2) Prothrombin Time 13.7 SEC (11.7-14.0) Prothromb Time International Ratio 1.1 (0.8-1.1) Activated Partial Thromboplast Time 26 SEC (24-38) Sodium Level 142 mmol/L (136-145) Potassium Level 3.9 mmol/L (3.5-5.1) Chloride Level 103 mmol/L (98-107) Carbon Dioxide Level 30 mmol/L (21-32) Anion Gap 9 (6-14) Blood Urea Nitrogen 9 mg/dL (7-20) Creatinine 0.7 mg/dL (0.6-1.0) Estimated GFR (Cockcroft-Gault) 85.4 BUN/Creatinine Ratio 13 (6-20) Glucose Level 127 mg/dL (70-99) Calcium Level 8.7 mg/dL (8.5-10.1) Total Bilirubin 0.5 mg/dL (0.2-1.0) Aspartate Amino Transf (AST/SGOT) 37 U/L (15-37) Alanine Aminotransferase (ALT/SGPT) 28 U/L (14-59) Alkaline Phosphatase 117 U/L (46-116) Troponin I Quantitative 0.018 ng/mL (0.000-0.055) Total Protein 6.3 g/dL (6.4-8.2) Albumin 3.3 g/dL (3.4-5.0) Albumin/Globulin Ratio 1.1 (1.0-1.7) Images [facility], I see nothing other than the hematoma, radiology interpretation is pending. CT HEAD WO CONTRAST History: Fall, head injury, headache and confusion Comparison: CT head May 12, 2014 Technique: Noncontrast CT imaging was performed of the head. Exposure: One or more of the following individualized dose reduction techniques were utilized for this examination: 1. Automated exposure control 2. Adjustment of the mA and/or kV according to patient size 3. Use of iterative reconstruction technique. Findings: There is approximate 3.1 cm AP by 2.1 cm transverse focus of apparently parenchymal, hyperdense hemorrhage centered in the posterior left temporal lobe. There is adjacent vasogenic edema signified by ill-defined low density. There is a small focus of hyperdensity just anteriorly probably associated with the left choroid plexus not apparent on previous exam, probable mild hemorrhage. There is no midline shift. Ventricles are normal in size. There is right parietal region scalp soft tissue swelling. Focus of mild ill-defined low-density of the left frontal parenchyma is similar. Impression: 1. There is a focus of recent acute hyperdense parenchymal hemorrhage of the posterior left temporal lobe with adjacent vasogenic edema. There is a small focus of amorphous hemorrhage more anteriorly, may be associated with the choroid plexus. CT ANGIOGRAPHY HEAD AND NECK History: ICH OMNI 300 75ML Comparison/Correlation: None Findings: Axial images of the head and neck were obtained following IV contrast according to arteriography protocol. MIP images provided. 3-D volume rendered images of the head and neck arterial vasculature provided. [place] of [place] is unremarkable. No stenosis of intracranial arterial vasculature definitely identified. Dural sinuses opacify normally with contrast. Left posterior temporal lobe hematoma measuring 3.9 cm anteroposterior by 1.2 cm superoinferior by 2 cm transverse with surrounding edema is present. There is no suspicious vascular structures within or about this lesion on arterial phase imaging. Ventricles are unremarkable with no intraventricular hemorrhage. Choroid plexus is unremarkable bilaterally. Circumferential calcification involving the right vertebral artery as very superior aspect is notable. No significant stenosis. Left internal artery is unremarkable although it is tortuous at its very proximal aspect. Calcific involvement of the proximal left internal carotid artery is evident. No significant stenosis. Right internal carotid arteries unremarkable. Common carotid arteries are normal. External carotid arteries are unremarkable. The right brachiocephalic and left subclavian arteries are unremarkable. Kinked appearance of the right axillary artery proximally. Soft tissues of the neck are unremarkable. No enlarged lymph nodes. Soft tissues of the head are unremarkable. Globes and optic nerves are unremarkable. Mild emphysematous involvement of the lung desir noted. Severe C5-C7 disc space narrowing is present with spurring. Effacement of the thecal sac at C5-6 due to spurring is evident. Spinal canal stenosis of slightly greater than 50% noted. Impression: No significant stenoses identified to involve the arterial vasculature of the head or neck. Left temporal lobe hematoma. No abnormal vascular structures as would be expected of an arteriovenous malformation. Consider further evaluation MRI if able without and with contrast to assess for underlying mass lesion. Assessment/Plan Assessment/Plan Impression: 3.1 cm by 2.1 cm posterior left temporal lobe hemorrhage and mild hemorrhage in left choroid plexus. She did have a recent fall in the location is atypical for hypertension-related hemorrhage, but she was having headache and symptoms prior to the fall. There is no evidence of any underlying mass lesion, aneurysm, or vascular malformation. History of syncope Recent diagnosis of obstructive sleep apnea Recommendations: ICU monitoring See orders regarding blood pressure parameters and antihypertensives Rehabilitation modalities Neurosurgery has been consulted, but it does not appear she will need any type of surgical intervention. Repeat head CT tomorrow No need for electroencephalogram or prophylactic anticonvulsants. Holding on instituting CPAP treatment given the hemorrhage. Thank you for letting me help with the patient's care. ISAIAS REDDY MD Jun 18, 2018 13:17
[2018-06-18] MEDS ORDERED: METF10007 PO (16:13)
[2018-06-18] MEDS ORDERED: SITA25TA PO (16:13)
[2018-06-18] MEDS ORDERED: PANT20TA2 PO (16:14)
[2018-06-18] MEDS ORDERED: DEXTROSE 50% 25 GM / 50ML DISP.SYRIN. IV PRN (16:45)
[2018-06-18] MEDS ORDERED: CETIRIZINE HCL 10 MG TABLET. PO PRN (16:45)
[2018-06-18] MEDS: INSULIN LISPRO 300 UNITS/3 ML INSULN.PEN. SQ SCH (17:00)
[2018-06-18] MEDS ORDERED: DULO60CA6 PO (19:46)
[2018-06-18] MEDS ORDERED: ROPI0.5T PO (19:46)
[2018-06-18] MEDS ORDERED: PROP40TA PO (19:46)
[2018-06-18] MEDS ORDERED: GABA100C6 PO (19:46)
[2018-06-18] MEDS ORDERED: PROPRANOLOL ER 60 MG CAP.SA.24H. PO SCH (21:00)
[2018-06-18] MEDS: HYDROcodone/APAP 5/325MG 1 TAB TABLET PO PRN (21:06)
[2018-06-18] MEDS: SIMVASTATIN 20 MG TABLET PO SCH (21:07)
[2018-06-18] MEDS: PROPRANOLOL 40 MG TABLET. PO SCH (21:07)
[2018-06-18] MEDS: rOPINIRole 1 MG TABLET. PO SCH (21:07)
[2018-06-19] VITALS (17 sets, daily range): BP systolic 94–149; BP diastolic 43–71
[2018-06-19 06:01] LABS: CHOLESTEROL/HDL RATIO 2.8
[2018-06-19] MEDS: LEVOTHYROXINE 175 MCG TABLET PO SCH (06:32)
[2018-06-19] MEDS: HYDROcodone/APAP 5/325MG 1 TAB TABLET PO PRN ×2 (06:33→17:21)
[2018-06-19] MEDS: IV NORMAL SALINE 1000ML BAG 1,000 ML IV SCH (07:00)
[2018-06-19] MEDS: INSULIN LISPRO 300 UNITS/3 ML INSULN.PEN. SQ SCH ×3 (08:00→17:00)
--- NOTE | 2018-06-19 08:31 | PDOC ---
PROGRESS NOTES Chief Complaint Chief Complaint A/P: Fall - scalp hematoma and left temporal hemorrhage 3.1 cm by 2.1 cm posterior left temporal lobe hemorrhage and mild hemorrhage in left choroid plexus - , difficult to say if this is traumatic or CVA. Will consult neurosurgery and neurology. Now at some risk of seizure, no hx of seizures Headache - likely 2/2 intracranial hemorrhage History of syncope - seen by Dr. Monreal previously, narcolepsy/cataplexy Anxiety - cont home meds Depression - cont home meds Diabetes-Type II - sliding scale basal bolus in hour High Cholesterol - needs high intensity statin Hypertension - will manage in ICU Hypothyroid s/p radioactive iodine ablation - on 175mcg replacement therapy, continue RLS - cont meds if ok with neuro YUKI on CPAP - will not initiate based on intracranial hemorrhage FEN - Ok for ADA diet PPX - SCDs FULL CODE ICU admission for intracranial hemorrhage, at least 2 midnights History of Present Illness History of Present Illness Ms Stearns is a 62yo F w/ PMHx Anxiety, Depression, Diabetes-Type II, High Cholesterol, Hypertension, Hypothyroid s/p radioactive iodine ablation, RLS, Syncope, narcolepsy/cataplexy, UYKI on CPAP (about to start using), Obesity s/p gastric bypass who present to ED with progressive confusion and word finding difficulty after a fall @ 7am 06/17/18. She has had a headache for the past 2-3 days as well prior to this. Was seen in [facility] ED after her co-workers noted she was acting strangely yesterday after her fall. She had a negative head CT at the time and was sent home. She is aware of her word finding deficit and finds it frustrating. She still had headache and was feeling strange this with word finding difficulty and confusion noted by her significant other. Head CT in our ED showed a hemorrhage in the left temporal lobe 3x2cm approximately. CTA negative for occlusion or aneurysm. MRI equivocal for infarct with hemorrhagic conversion vs hematoma. Seen by neuro, will order repeat CT head. Plan: Ok for transfer to floor if CT head unchanged Vitals Vitals Vital Signs Date Time Temp Pulse Resp B/P (MAP) Pulse Ox O2 Delivery O2 Flow Rate FiO2 06/19/18 06:33 19 96 Nasal Cannula 2.0 06/19/18 06:00 71 135/62 (86) 06/19/18 04:00 98.1 98.1 Physical Exam General: Alert, Oriented X3, Cooperative, No acute distress Abdomen: Normal bowel sounds, Soft, No tenderness, No hepatosplenomegaly, No masses Extremities: No clubbing, No cyanosis, No edema, Normal pulses, No tenderness/ swelling Skin: No rashes, No breakdown, No significant lesion Labs LABS Laboratory Tests Test 06/18/18 09:47 06/18/18 10:07 06/18/18 10:50 06/18/18 17:55 Urine Collection Type Unknown Urine Color Sierra Urine Clarity Clear Urine pH 6.0 Urine Specific Banner 1.025 Urine Protein 30 mg/dL (NEG-TRACE) Urine Glucose (UA) Negative mg/dL (NEG) Urine Ketones (Stick) Trace mg/dL (NEG) Urine Blood Negative (NEG) Urine Nitrite Negative (NEG) Urine Bilirubin Small (NEG) Urine Urobilinogen Dipstick 1.0 mg/dL (0.2 mg/dL) Urine Leukocyte Esterase Small (NEG) Urine RBC 0 /HPF (0-2) Urine WBC 5-10 /HPF (0-4) Urine Squamous Epithelial Cells Few /LPF Urine Bacteria Moderate /HPF (0-FEW) Urine Mucus Mod /LPF Glucose (Fingerstick) 124 mg/dL (70-99) 101 mg/dL (70-99) White Blood Count 5.4 x10^3/uL (4.0-11.0) Red Blood Count 4.13 x10^6/uL (3.50-5.40) Hemoglobin 10.3 g/dL (12.0-15.5) Hematocrit 31.7 % (36.0-47.0) Mean Corpuscular Volume 77 fL (79-100) Mean Corpuscular Hemoglobin 25 pg (25-35) Mean Corpuscular Hemoglobin Concent 32 g/dL (31-37) Red Cell Distribution Width 15.6 % (11.5-14.5) Platelet Count 167 x10^3/uL (140-400) Neutrophils (%) (Auto) 57 % (31-73) Lymphocytes (%) (Auto) 34 % (24-48) Monocytes (%) (Auto) 7 % (0-9) Eosinophils (%) (Auto) 2 % (0-3) Basophils (%) (Auto) 1 % (0-3) Neutrophils # (Auto) 3.1 x10^3uL (1.8-7.7) Lymphocytes # (Auto) 1.8 x10^3/uL (1.0-4.8) Monocytes # (Auto) 0.4 x10^3/uL (0.0-1.1) Eosinophils # (Auto) 0.1 x10^3/uL (0.0-0.7) Basophils # (Auto) 0.1 x10^3/uL (0.0-0.2) Prothrombin Time 13.7 SEC (11.7-14.0) Prothromb Time International Ratio 1.1 (0.8-1.1) Activated Partial Thromboplast Time 26 SEC (24-38) Sodium Level 142 mmol/L (136-145) Potassium Level 3.9 mmol/L (3.5-5.1) Chloride Level 103 mmol/L (98-107) Carbon Dioxide Level 30 mmol/L (21-32) Anion Gap 9 (6-14) Blood Urea Nitrogen 9 mg/dL (7-20) Creatinine 0.7 mg/dL (0.6-1.0) Estimated GFR (Cockcroft-Gault) 85.4 BUN/Creatinine Ratio 13 (6-20) Glucose Level 127 mg/dL (70-99) Calcium Level 8.7 mg/dL (8.5-10.1) Total Bilirubin 0.5 mg/dL (0.2-1.0) Aspartate Amino Transf (AST/SGOT) 37 U/L (15-37) Alanine Aminotransferase (ALT/SGPT) 28 U/L (14-59) Alkaline Phosphatase 117 U/L (46-116) Troponin I Quantitative 0.018 ng/mL (0.000-0.055) Total Protein 6.3 g/dL (6.4-8.2) Albumin 3.3 g/dL (3.4-5.0) Albumin/Globulin Ratio 1.1 (1.0-1.7) Test 06/19/18 05:05 06/19/18 07:56 Triglycerides Level 85 mg/dL (0-150) Cholesterol Level 109 mg/dL (0-200) LDL Cholesterol, Calculated 53 mg/dL (0-100) VLDL Cholesterol, Calculated 17 mg/dL (0-40) Non-HDL Cholesterol Calculated 70 mg/dL (0-129) HDL Cholesterol 39 mg/dL (40-60) Cholesterol/HDL Ratio 2.8 Glucose (Fingerstick) 133 mg/dL (70-99) Assessment and Plan Assessmemt and Plan Problems Medical Problems: (1) Confusion Status: Acute (2) Intracranial hemorrhage following injury Status: Acute Comment Review of Relevant I have reviewed the following items francisco (where applicable) has been applied. Labs Laboratory Tests Test 06/18/18 09:47 06/18/18 10:07 06/18/18 10:50 06/18/18 17:55 Urine Collection Type Unknown Urine Color Sierra Urine Clarity Clear Urine pH 6.0 Urine Specific Banner 1.025 Urine Protein 30 mg/dL (NEG-TRACE) Urine Glucose (UA) Negative mg/dL (NEG) Urine Ketones (Stick) Trace mg/dL (NEG) Urine Blood Negative (NEG) Urine Nitrite Negative (NEG) Urine Bilirubin Small (NEG) Urine Urobilinogen Dipstick 1.0 mg/dL (0.2 mg/dL) Urine Leukocyte Esterase Small (NEG) Urine RBC 0 /HPF (0-2) Urine WBC 5-10 /HPF (0-4) Urine Squamous Epithelial Cells Few /LPF Urine Bacteria Moderate /HPF (0-FEW) Urine Mucus Mod /LPF Glucose (Fingerstick) 124 mg/dL (70-99) 101 mg/dL (70-99) White Blood Count 5.4 x10^3/uL (4.0-11.0) Red Blood Count 4.13 x10^6/uL (3.50-5.40) Hemoglobin 10.3 g/dL (12.0-15.5) Hematocrit 31.7 % (36.0-47.0) Mean Corpuscular Volume 77 fL (79-100) Mean Corpuscular Hemoglobin 25 pg (25-35) Mean Corpuscular Hemoglobin Concent 32 g/dL (31-37) Red Cell Distribution Width 15.6 % (11.5-14.5) Platelet Count 167 x10^3/uL (140-400) Neutrophils (%) (Auto) 57 % (31-73) Lymphocytes (%) (Auto) 34 % (24-48) Monocytes (%) (Auto) 7 % (0-9) Eosinophils (%) (Auto) 2 % (0-3) Basophils (%) (Auto) 1 % (0-3) Neutrophils # (Auto) 3.1 x10^3uL (1.8-7.7) Lymphocytes # (Auto) 1.8 x10^3/uL (1.0-4.8) Monocytes # (Auto) 0.4 x10^3/uL (0.0-1.1) Eosinophils # (Auto) 0.1 x10^3/uL (0.0-0.7) Basophils # (Auto) 0.1 x10^3/uL (0.0-0.2) Prothrombin Time 13.7 SEC (11.7-14.0) Prothromb Time International Ratio 1.1 (0.8-1.1) Activated Partial Thromboplast Time 26 SEC (24-38) Sodium Level 142 mmol/L (136-145) Potassium Level 3.9 mmol/L (3.5-5.1) Chloride Level 103 mmol/L (98-107) Carbon Dioxide Level 30 mmol/L (21-32) Anion Gap 9 (6-14) Blood Urea Nitrogen 9 mg/dL (7-20) Creatinine 0.7 mg/dL (0.6-1.0) Estimated GFR (Cockcroft-Gault) 85.4 BUN/Creatinine Ratio 13 (6-20) Glucose Level 127 mg/dL (70-99) Calcium Level 8.7 mg/dL (8.5-10.1) Total Bilirubin 0.5 mg/dL (0.2-1.0) Aspartate Amino Transf (AST/SGOT) 37 U/L (15-37) Alanine Aminotransferase (ALT/SGPT) 28 U/L (14-59) Alkaline Phosphatase 117 U/L (46-116) Troponin I Quantitative 0.018 ng/mL (0.000-0.055) Total Protein 6.3 g/dL (6.4-8.2) Albumin 3.3 g/dL (3.4-5.0) Albumin/Globulin Ratio 1.1 (1.0-1.7) Test 06/19/18 05:05 06/19/18 07:56 Triglycerides Level 85 mg/dL (0-150) Cholesterol Level 109 mg/dL (0-200) LDL Cholesterol, Calculated 53 mg/dL (0-100) VLDL Cholesterol, Calculated 17 mg/dL (0-40) Non-HDL Cholesterol Calculated 70 mg/dL (0-129) HDL Cholesterol 39 mg/dL (40-60) Cholesterol/HDL Ratio 2.8 Glucose (Fingerstick) 133 mg/dL (70-99) Laboratory Tests Test 06/18/18 09:47 06/18/18 10:07 06/18/18 10:50 06/18/18 17:55 Urine Collection Type Unknown Urine Color Sierra Urine Clarity Clear Urine pH 6.0 Urine Specific Banner 1.025 Urine Protein 30 mg/dL (NEG-TRACE) Urine Glucose (UA) Negative mg/dL (NEG) Urine Ketones (Stick) Trace mg/dL (NEG) Urine Blood Negative (NEG) Urine Nitrite Negative (NEG) Urine Bilirubin Small (NEG) Urine Urobilinogen Dipstick 1.0 mg/dL (0.2 mg/dL) Urine Leukocyte Esterase Small (NEG) Urine RBC 0 /HPF (0-2) Urine WBC 5-10 /HPF (0-4) Urine Squamous Epithelial Cells Few /LPF Urine Bacteria Moderate /HPF (0-FEW) Urine Mucus Mod /LPF Glucose (Fingerstick) 124 mg/dL (70-99) 101 mg/dL (70-99) White Blood Count 5.4 x10^3/uL (4.0-11.0) Red Blood Count 4.13 x10^6/uL (3.50-5.40) Hemoglobin 10.3 g/dL (12.0-15.5) Hematocrit 31.7 % (36.0-47.0) Mean Corpuscular Volume 77 fL (79-100) Mean Corpuscular Hemoglobin 25 pg (25-35) Mean Corpuscular Hemoglobin Concent 32 g/dL (31-37) Red Cell Distribution Width 15.6 % (11.5-14.5) Platelet Count 167 x10^3/uL (140-400) Neutrophils (%) (Auto) 57 % (31-73) Lymphocytes (%) (Auto) 34 % (24-48) Monocytes (%) (Auto) 7 % (0-9) Eosinophils (%) (Auto) 2 % (0-3) Basophils (%) (Auto) 1 % (0-3) Neutrophils # (Auto) 3.1 x10^3uL (1.8-7.7) Lymphocytes # (Auto) 1.8 x10^3/uL (1.0-4.8) Monocytes # (Auto) 0.4 x10^3/uL (0.0-1.1) Eosinophils # (Auto) 0.1 x10^3/uL (0.0-0.7) Basophils # (Auto) 0.1 x10^3/uL (0.0-0.2) Prothrombin Time 13.7 SEC (11.7-14.0) Prothromb Time International Ratio 1.1 (0.8-1.1) Activated Partial Thromboplast Time 26 SEC (24-38) Sodium Level 142 mmol/L (136-145) Potassium Level 3.9 mmol/L (3.5-5.1) Chloride Level 103 mmol/L (98-107) Carbon Dioxide Level 30 mmol/L (21-32) Anion Gap 9 (6-14) Blood Urea Nitrogen 9 mg/dL (7-20) Creatinine 0.7 mg/dL (0.6-1.0) Estimated GFR (Cockcroft-Gault) 85.4 BUN/Creatinine Ratio 13 (6-20) Glucose Level 127 mg/dL (70-99) Calcium Level 8.7 mg/dL (8.5-10.1) Total Bilirubin 0.5 mg/dL (0.2-1.0) Aspartate Amino Transf (AST/SGOT) 37 U/L (15-37) Alanine Aminotransferase (ALT/SGPT) 28 U/L (14-59) Alkaline Phosphatase 117 U/L (46-116) Troponin I Quantitative 0.018 ng/mL (0.000-0.055) Total Protein 6.3 g/dL (6.4-8.2) Albumin 3.3 g/dL (3.4-5.0) Albumin/Globulin Ratio 1.1 (1.0-1.7) Test 06/19/18 05:05 06/19/18 07:56 Triglycerides Level 85 mg/dL (0-150) Cholesterol Level 109 mg/dL (0-200) LDL Cholesterol, Calculated 53 mg/dL (0-100) VLDL Cholesterol, Calculated 17 mg/dL (0-40) Non-HDL Cholesterol Calculated 70 mg/dL (0-129) HDL Cholesterol 39 mg/dL (40-60) Cholesterol/HDL Ratio 2.8 Glucose (Fingerstick) 133 mg/dL (70-99) Medications Current Medications Ondansetron HCl (Zofran) 4 mg 1X ONCE IV Last administered on 06/18/18at 11:18 ; Start 06/18/18 at 11:00; Stop 06/18/18 at 11:01; Status DC Fentanyl Citrate (Fentanyl 2ml Vial) 50 mcg 1X ONCE IV Last administered on at 11:18; Start 06/18/18 at 11:00; Stop 06/18/18 at 11:01; Status DC Info (Review Meds) 1 ea PRN 1X PRN MC SEE COMMENTS; Start 06/18/18 at 11:15 Sodium Chloride (Normal Saline Flush) 3 ml QSHIFT PRN IV AFTER MEDS AND BLOOD DRAWS; Start 06/18/18 at 11:15 Sodium Chloride 1,000 ml @ 100 mls/hr Q10H IV Last administered on 06/19/18at 07:00; Start 06/18/18 at 11:07 Acetaminophen (Tylenol Supp) [address] Q[address]RS PRN CT FEVER > 100.5'F; Start at 11:15 Labetalol HCl (Normodyne Iv Push) 10 mg PRN Q10MIN PRN IVP HYPERTENSION, SEE COMMENTS; Start 06/18/18 at 11:15 Hydralazine HCl (Apresoline Inj) 10 mg PRN Q10MIN PRN IVP HYPERTENSION, SEE COMMENTS; Start 06/18/18 at 11:15 Nicardipine HCl 50 mg/Sodium Chloride 250 ml @ 25 mls/hr CONT PRN IV HYPERTENSION, SEE COMMENTS Last administered on 06/18/18at 11:54; Start 06/18/18 at 11:15 Ondansetron HCl (Zofran) 4 mg PRN Q6HRS PRN IV NAUSEA/VOMITING; Start 06/18/18 at 11:15 Iohexol (Omnipaque 300 Mg/ml) 75 ml 1X ONCE IV Last administered on 06/18/18at 12:11; Start 06/18/18 at 11:45; Stop 06/18/18 at 11:46; Status DC Info (CONTRAST GIVEN -- Rx MONITORING) 1 each PRN DAILY PRN MC SEE COMMENTS; Start 06/18/18 at 11:45; Stop 06/19/18 at 07:48; Status DC Iohexol (Omnipaque 300 Mg/ml) 75 ml 1X ONCE IV ; Start 06/18/18 at 12:00; Stop 06/18/18 at 12:03; Status DC Info (CONTRAST GIVEN -- Rx MONITORING) 1 each PRN DAILY PRN MC SEE COMMENTS; Start 06/18/18 at 12:15; Stop 06/20/18 at 12:14 Cetirizine HCl (ZyrTEC) 10 mg PRN DAILY PRN PO symptoms; Start 06/18/18 at 16: 45 Levothyroxine Sodium (Synthroid) 175 mcg DAILY07 PO Last administered on at 06:32; Start 06/19/18 at 07:00 Lisinopril (Prinivil) 20 mg DAILY PO ; Start 06/19/18 at 09:00 Vitamin D (Vitamin D3) 1,000 unit DAILY PO ; Start 06/19/18 at 09:00 Citalopram Hydrobromide (CeleXA) 40 mg DAILY PO ; Start 06/19/18 at 09:00 Multivitamins (Thera M Plus) 1 tab DAILY PO ; Start 06/19/18 at 09:00 Pantoprazole Sodium (Protonix) 40 mg DAILYAC PO ; Start 06/19/18 at 07:30 Propranolol HCl (Inderal La) 120 mg HS PO ; Start 06/18/18 at 21:00; Stop at 21:00; Status DC Ropinirole HCl (Requip) 2 mg DAILY PO ; Start 06/19/18 at 09:00; Stop 06/19/18 at 09:00; Status DC Simvastatin (Zocor) 20 mg HS PO Last administered on 06/18/18at 21:07; Start at 21:00 Linagliptin (Tradjenta) 5 mg DAILY PO ; Start 06/19/18 at 09:00 Insulin Human Lispro (HumaLOG) 0-5 UNITS TIDWMEALS SQ ; Start 06/18/18 at 17:00 Dextrose (Dextrose 50%-Water Syringe) 12.5 gm PRN Q15MIN PRN IV SEE COMMENTS; Start 06/18/18 at 16:45 Acetaminophen/ Hydrocodone Bitart (Lortab 5/325) 1 tab PRN Q6HRS PRN PO PAIN Last administered on 06/19/18at 06:33; Start 06/18/18 at 18:00 Propranolol HCl (Inderal) 40 mg BID PO Last administered on 06/18/18at 21:07; Start 06/18/18 at 21:00 Ropinirole HCl (Requip) 2 mg HS PO Last administered on 06/18/18at 21:07; Start 06/18/18 at 21:00 Ropinirole HCl (Requip) 1 mg DAILY PO ; Start 06/19/18 at 09:00 Active Scripts Active Reported Gabapentin 100 Mg Capsule 100 Mg PO TID PRN PRN Requip (Ropinirole Hcl) 0.5 Mg Tablet 2 Mg PO DAILY Propranolol Hcl 40 Mg Tablet 1 Tab PO BID Cymbalta (Duloxetine Hcl) 60 Mg Capsule.dr 2 Cap PO DAILY Protonix (Pantoprazole Sodium) 20 Mg Tablet.dr 20 Mg PO DAILY Januvia (Sitagliptin Phosphate) 25 Mg Tablet 50 Mg PO DAILY Metformin Hcl 1,000 Mg Tablet 1,000 Mg PO BIDWMEALS Cetirizine Hcl 10 Mg Tablet 1 Tab PO BID PRN Vitamin D-3 (Cholecalciferol (Vitamin D3)) 2,000 Unit Capsule 1,000 Unit PO DAILY Multi-Vitamin Daily (Multivitamin) 1 Each Tablet 1 Each PO DAILY Simvastatin 20 Mg Tablet 1 Tab PO QHS Requip (Ropinirole Hcl) 1 Mg Tablet 4 Tab PO HS Lisinopril 20 Mg Tablet 1 Tab PO DAILY Levothyroxine Sodium 175 Mcg Tablet 1 Tab PO DAILY Vitals/I & O Vital Sign - Last 24 Hours 06/18/18 06/18/18 06/18/18 06/18/18 09:50 11:01 11:10 11:18 Temp 97.9 97.9 Pulse 75 67 67 Resp 18 18 16 16 B/P (MAP) 162/74 (103) Pulse Ox 95 97 97 97 O2 Delivery Room Air Room Air 06/18/18 06/18/18 06/18/18 06/18/18 11:30 11:48 11:55 12:00 Pulse 74 68 70 78 Resp 16 16 16 16 Pulse Ox 88 99 100 99 06/18/18 06/18/18 06/18/18 06/18/18 12:00 12:05 12:15 12:22 Pulse 74 75 77 Resp 16 16 16 16 Pulse Ox 98 99 98 99 O2 Delivery Nasal Cannula O2 Flow Rate 2.0 06/18/18 06/18/18 06/18/18 06/18/18 12:32 12:42 12:50 13:00 Pulse 74 75 72 82 Resp 16 18 16 24 B/P (MAP) 143/74 (97) Pulse Ox 99 98 98 O2 Flow Rate 2.0 06/18/18 06/18/18 06/18/18 06/18/18 14:00 15:00 16:00 16:00 Temp 98.2 98.3 98.2 98.3 Pulse 76 76 74 Resp 24 22 26 B/P (MAP) 145/63 (90) 143/65 (91) 127/60 (82) O2 Flow Rate 2.0 2.0 2.0 2.0 06/18/18 06/18/18 06/18/18 06/18/18 17:00 18:00 19:00 20:00 Pulse 76 81 78 Resp 18 16 B/P (MAP) 133/67 (89) 127/56 (79) 121/57 (78) Pulse Ox 99 O2 Delivery Nasal Cannula Nasal Cannula O2 Flow Rate 2.0 2.0 2.0 2.0 06/18/18 06/18/18 06/18/18 06/18/18 20:00 21:00 21:06 21:07 Temp 98.5 98.5 Pulse 74 76 76 Resp 24 18 22 B/P (MAP) 138/72 (94) 140/67 (91) 144/88 Pulse Ox 98 99 100 O2 Delivery Nasal Cannula Nasal Cannula Nasal Cannula O2 Flow Rate 2.0 2.0 2.0 06/18/18 06/18/18 06/18/18 06/18/18 22:00 22:06 23:00 23:33 Pulse 71 65 Resp 16 16 18 B/P (MAP) 136/62 (86) 133/66 (88) Pulse Ox 99 99 99 O2 Delivery Nasal Cannula Nasal Cannula Nasal Cannula Nasal Cannula O2 Flow Rate 2.0 2.0 2.0 2.0 06/19/18 06/19/18 06/19/18 06/19/18 00:00 01:00 02:00 03:00 Temp 98.1 98.1 Pulse 68 64 62 63 Resp 16 16 21 18 B/P (MAP) 148/70 (96) 134/68 (90) 131/63 (85) 119/62 (81) Pulse Ox 98 99 95 96 O2 Delivery Nasal Cannula Nasal Cannula Nasal Cannula Nasal Cannula O2 Flow Rate 2.0 2.0 2.0 2.0 06/19/18 06/19/18 06/19/18 06/19/18 03:34 04:00 05:00 06:00 Temp 98.1 98.1 Pulse 63 70 71 Resp 16 20 20 B/P (MAP) 120/61 (80) 116/62 (80) 135/62 (86) Pulse Ox 96 97 96 O2 Delivery Nasal Cannula Nasal Cannula Nasal Cannula Nasal Cannula O2 Flow Rate 2.0 2.0 2.0 2.0 06/19/18 06:33 Resp 19 Pulse Ox 96 O2 Delivery Nasal Cannula O2 Flow Rate 2.0 Intake and Output 06/18/18 06/18/18 06/19/18 14:59 22:59 06:59 Intake Total 1150 ml 1326 ml Output Total 600 ml 825 ml 1600 ml Balance -600 ml 325 ml -274 ml Images MRI - 1. As seen on recent CT, there is acute parenchymal hematoma of the left temporal lobe with adjacent vasogenic edema. There is some associated diffusion signal abnormality. Diffusion signal change can be associated with hematoma although could also be related to hemorrhagic transformation of recent infarct. 2. There is other scattered relatively mild T2 and FLAIR hyperintense signal abnormality of the supratentorial parenchyma and mo, possibly due to chronic microvascular ischemic disease. Pattern is not particularly suggestive of an inflammatory demyelinating disease. NUZHAT WALKER MD Jun 19, 2018 08:31
[2018-06-19] MEDS ORDERED: rOPINIRole 1 MG TABLET. PO SCH (09:00)
[2018-06-19] MEDS ORDERED: CITALOPRAM 20 MG TABLET. PO SCH (09:00)
[2018-06-19] MEDS: CHOLECALCIFEROL (VITAMIN D3) 1,000 UNIT TABLET PO SCH (09:48)
[2018-06-19] MEDS: LINAGLIPTIN 5 MG TABLET PO SCH (09:48)
[2018-06-19] MEDS: rOPINIRole 1 MG TABLET. PO SCH ×2 (09:48→20:42)
[2018-06-19] MEDS: PANTOPRAZOLE 40 MG TABLET.DR. PO SCH (09:49)
[2018-06-19] MEDS: MULTIVITAMIN with MINERAL TABLET. PO SCH (09:49)
--- NOTE | 2018-06-19 10:14 | PDOC ---
PROGRESS NOTES Assessment Problems Medical Problems: (1) Confusion Status: Acute (2) Intracranial hemorrhage following injury Status: Acute 3.1 cm by 2.1 cm posterior left temporal lobe hemorrhage and mild hemorrhage in left choroid plexus. Workup is negative so far, most likely she had a small AVM that obliterated itself. This is an atypical location for hypertensive hemorrhage, there is no sign of a mass lesion, and she does not have significant hypertension. The location is a typical for hypertensive hemorrhage. A hemorrhage into a bland infarct is less likely given the history of headache History of syncope Recent diagnosis of obstructive sleep apnea Plan ICU monitoring, okay to transfer to floor if hemorrhage stable on repeat head CT for this morning See orders regarding blood pressure parameters and antihypertensives Rehabilitation modalities Neurosurgery has been consulted, but it does not appear she will need any type of surgical intervention. Repeat head CT later this morning No need for electroencephalogram or prophylactic anticonvulsants. Holding on instituting CPAP treatment given the hemorrhage. She will follow-up with Dr. Monreal as scheduled and most likely will require repeat head CT and CTA for completeness, then. Discussed with patient and her Objective Vital Signs Date Time Temp Pulse Resp B/P (MAP) Pulse Ox O2 Delivery O2 Flow Rate FiO2 06/19/18 07:33 96 Nasal Cannula 2.0 06/19/18 06:33 19 06/19/18 06:00 71 135/62 (86) 06/19/18 04:00 98.1 98.1 Intake and Output 06/19/18 07:00 Intake Total 2476 ml Output Total 3025 ml Balance -549 ml Intake Oral 950 ml IV Total 1526 ml Output Urine Total 3025 ml # Voids 1 # Bowel Movements 1 PHYSICAL EXAM Alert. Oriented to time, place and person. Expressive speech much better PERRL. EOMI. CN: no focal findings. Muscle tone: normal. Muscle strength: 5/5 DTR: 2+ Plantar reflex: flexor Gait: not examined in bed. Sensory exam: no abnormal findings. No cerebellar signs elicited. Review of Relevant I have reviewed the following items francisco (where applicable) has been applied. Labs Laboratory Tests Test 06/18/18 09:47 06/18/18 10:07 06/18/18 10:50 06/18/18 17:55 Urine Collection Type Unknown Urine Color [place] Urine Clarity Clear Urine pH 6.0 Urine Specific [place] 1.025 Urine Protein 30 mg/dL (NEG-TRACE) Urine Glucose (UA) Negative mg/dL (NEG) Urine Ketones (Stick) Trace mg/dL (NEG) Urine Blood Negative (NEG) Urine Nitrite Negative (NEG) Urine Bilirubin Small (NEG) Urine Urobilinogen Dipstick 1.0 mg/dL (0.2 mg/dL) Urine Leukocyte Esterase Small (NEG) Urine RBC 0 /HPF (0-2) Urine WBC 5-10 /HPF (0-4) Urine Squamous Epithelial Cells Few /LPF Urine Bacteria Moderate /HPF (0-FEW) Urine Mucus Mod /LPF Glucose (Fingerstick) 124 mg/dL (70-99) 101 mg/dL (70-99) White Blood Count 5.4 x10^3/uL (4.0-11.0) Red Blood Count 4.13 x10^6/uL (3.50-5.40) Hemoglobin 10.3 g/dL (12.0-15.5) Hematocrit 31.7 % (36.0-47.0) Mean Corpuscular Volume 77 fL (79-100) Mean Corpuscular Hemoglobin 25 pg (25-35) Mean Corpuscular Hemoglobin Concent 32 g/dL (31-37) Red Cell Distribution Width 15.6 % (11.5-14.5) Platelet Count 167 x10^3/uL (140-400) Neutrophils (%) (Auto) 57 % (31-73) Lymphocytes (%) (Auto) 34 % (24-48) Monocytes (%) (Auto) 7 % (0-9) Eosinophils (%) (Auto) 2 % (0-3) Basophils (%) (Auto) 1 % (0-3) Neutrophils # (Auto) 3.1 x10^3uL (1.8-7.7) Lymphocytes # (Auto) 1.8 x10^3/uL (1.0-4.8) Monocytes # (Auto) 0.4 x10^3/uL (0.0-1.1) Eosinophils # (Auto) 0.1 x10^3/uL (0.0-0.7) Basophils # (Auto) 0.1 x10^3/uL (0.0-0.2) Prothrombin Time 13.7 SEC (11.7-14.0) Prothromb Time International Ratio 1.1 (0.8-1.1) Activated Partial Thromboplast Time 26 SEC (24-38) Sodium Level 142 mmol/L (136-145) Potassium Level 3.9 mmol/L (3.5-5.1) Chloride Level 103 mmol/L (98-107) Carbon Dioxide Level 30 mmol/L (21-32) Anion Gap 9 (6-14) Blood Urea Nitrogen 9 mg/dL (7-20) Creatinine 0.7 mg/dL (0.6-1.0) Estimated GFR (Cockcroft-Gault) 85.4 BUN/Creatinine Ratio 13 (6-20) Glucose Level 127 mg/dL (70-99) Calcium Level 8.7 mg/dL (8.5-10.1) Total Bilirubin 0.5 mg/dL (0.2-1.0) Aspartate Amino Transf (AST/SGOT) 37 U/L (15-37) Alanine Aminotransferase (ALT/SGPT) 28 U/L (14-59) Alkaline Phosphatase 117 U/L (46-116) Troponin I Quantitative 0.018 ng/mL (0.000-0.055) Total Protein 6.3 g/dL (6.4-8.2) Albumin 3.3 g/dL (3.4-5.0) Albumin/Globulin Ratio 1.1 (1.0-1.7) Test 06/19/18 05:05 06/19/18 07:56 Triglycerides Level 85 mg/dL (0-150) Cholesterol Level 109 mg/dL (0-200) LDL Cholesterol, Calculated 53 mg/dL (0-100) VLDL Cholesterol, Calculated 17 mg/dL (0-40) Non-HDL Cholesterol Calculated 70 mg/dL (0-129) HDL Cholesterol 39 mg/dL (40-60) Cholesterol/HDL Ratio 2.8 Glucose (Fingerstick) 133 mg/dL (70-99) Laboratory Tests Test 06/18/18 10:50 06/18/18 17:55 06/19/18 05:05 06/19/18 07:56 White Blood Count 5.4 x10^3/uL (4.0-11.0) Red Blood Count 4.13 x10^6/uL (3.50-5.40) Hemoglobin 10.3 g/dL (12.0-15.5) Hematocrit 31.7 % (36.0-47.0) Mean Corpuscular Volume 77 fL (79-100) Mean Corpuscular Hemoglobin 25 pg (25-35) Mean Corpuscular Hemoglobin Concent 32 g/dL (31-37) Red Cell Distribution Width 15.6 % (11.5-14.5) Platelet Count 167 x10^3/uL (140-400) Neutrophils (%) (Auto) 57 % (31-73) Lymphocytes (%) (Auto) 34 % (24-48) Monocytes (%) (Auto) 7 % (0-9) Eosinophils (%) (Auto) 2 % (0-3) Basophils (%) (Auto) 1 % (0-3) Neutrophils # (Auto) 3.1 x10^3uL (1.8-7.7) Lymphocytes # (Auto) 1.8 x10^3/uL (1.0-4.8) Monocytes # (Auto) 0.4 x10^3/uL (0.0-1.1) Eosinophils # (Auto) 0.1 x10^3/uL (0.0-0.7) Basophils # (Auto) 0.1 x10^3/uL (0.0-0.2) Prothrombin Time 13.7 SEC (11.7-14.0) Prothromb Time International Ratio 1.1 (0.8-1.1) Activated Partial Thromboplast Time 26 SEC (24-38) Sodium Level 142 mmol/L (136-145) Potassium Level 3.9 mmol/L (3.5-5.1) Chloride Level 103 mmol/L (98-107) Carbon Dioxide Level 30 mmol/L (21-32) Anion Gap 9 (6-14) Blood Urea Nitrogen 9 mg/dL (7-20) Creatinine 0.7 mg/dL (0.6-1.0) Estimated GFR (Cockcroft-Gault) 85.4 BUN/Creatinine Ratio 13 (6-20) Glucose Level 127 mg/dL (70-99) Calcium Level 8.7 mg/dL (8.5-10.1) Total Bilirubin 0.5 mg/dL (0.2-1.0) Aspartate Amino Transf (AST/SGOT) 37 U/L (15-37) Alanine Aminotransferase (ALT/SGPT) 28 U/L (14-59) Alkaline Phosphatase 117 U/L (46-116) Troponin I Quantitative 0.018 ng/mL (0.000-0.055) Total Protein 6.3 g/dL (6.4-8.2) Albumin 3.3 g/dL (3.4-5.0) Albumin/Globulin Ratio 1.1 (1.0-1.7) Glucose (Fingerstick) 101 mg/dL (70-99) 133 mg/dL (70-99) Triglycerides Level 85 mg/dL (0-150) Cholesterol Level 109 mg/dL (0-200) LDL Cholesterol, Calculated 53 mg/dL (0-100) VLDL Cholesterol, Calculated 17 mg/dL (0-40) Non-HDL Cholesterol Calculated 70 mg/dL (0-129) HDL Cholesterol 39 mg/dL (40-60) Cholesterol/HDL Ratio 2.8 Medications Current Medications Ondansetron HCl (Zofran) 4 mg 1X ONCE IV Last administered on 06/18/18at 11:18 ; Start 06/18/18 at 11:00; Stop 06/18/18 at 11:01; Status DC Fentanyl Citrate (Fentanyl 2ml Vial) 50 mcg 1X ONCE IV Last administered on at 11:18; Start 06/18/18 at 11:00; Stop 06/18/18 at 11:01; Status DC Info (Review Meds) 1 ea PRN 1X PRN MC SEE COMMENTS; Start 06/18/18 at 11:15 Sodium Chloride (Normal Saline Flush) 3 ml QSHIFT PRN IV AFTER MEDS AND BLOOD DRAWS; Start 06/18/18 at 11:15 Sodium Chloride 1,000 ml @ 100 mls/hr Q10H IV Last administered on 06/19/18at 07:00; Start 06/18/18 at 11:07 Acetaminophen (Tylenol Supp) 650 mg PRN Q6HRS PRN NE FEVER > 100.5'F; Start at 11:15 Labetalol HCl (Normodyne Iv Push) 10 mg PRN Q10MIN PRN IVP HYPERTENSION, SEE COMMENTS; Start 06/18/18 at 11:15 Hydralazine HCl (Apresoline Inj) 10 mg PRN Q10MIN PRN IVP HYPERTENSION, SEE COMMENTS; Start 06/18/18 at 11:15 Nicardipine HCl 50 mg/Sodium Chloride 250 ml @ 25 mls/hr CONT PRN IV HYPERTENSION, SEE COMMENTS Last administered on 06/18/18at 11:54; Start 06/18/18 at 11:15 Ondansetron HCl (Zofran) 4 mg PRN Q6HRS PRN IV NAUSEA/VOMITING; Start 06/18/18 at 11:15 Iohexol (Omnipaque 300 Mg/ml) 75 ml 1X ONCE IV Last administered on 06/18/18at 12:11; Start 06/18/18 at 11:45; Stop 06/18/18 at 11:46; Status DC Info (CONTRAST GIVEN -- Rx MONITORING) 1 each PRN DAILY PRN MC SEE COMMENTS; Start 06/18/18 at 11:45; Stop 06/19/18 at 07:48; Status DC Iohexol (Omnipaque 300 Mg/ml) 75 ml 1X ONCE IV ; Start 06/18/18 at 12:00; Stop 06/18/18 at 12:03; Status DC Info (CONTRAST GIVEN -- Rx MONITORING) 1 each PRN DAILY PRN MC SEE COMMENTS; Start 06/18/18 at 12:15; Stop 06/20/18 at 12:14 Cetirizine HCl (ZyrTEC) 10 mg PRN DAILY PRN PO symptoms Last administered on at 09:49; Start 06/18/18 at 16:45 Levothyroxine Sodium (Synthroid) 175 mcg DAILY07 PO Last administered on at 06:32; Start 06/19/18 at 07:00 Lisinopril (Prinivil) 20 mg DAILY PO ; Start 06/19/18 at 09:00 Vitamin D (Vitamin D3) 1,000 unit DAILY PO Last administered on 06/19/18at 09:48 ; Start 06/19/18 at 09:00 Citalopram Hydrobromide (CeleXA) 40 mg DAILY PO ; Start 06/19/18 at 09:00 Multivitamins (Thera M Plus) 1 tab DAILY PO Last administered on 06/19/18at 09: 49; Start 06/19/18 at 09:00 Pantoprazole Sodium (Protonix) 40 mg DAILYAC PO Last administered on 06/19/18at 09:49; Start 06/19/18 at 07:30 Propranolol HCl (Inderal La) 120 mg HS PO ; Start 06/18/18 at 21:00; Stop at 21:00; Status DC Ropinirole HCl (Requip) 2 mg DAILY PO ; Start 06/19/18 at 09:00; Stop 06/19/18 at 09:00; Status DC Simvastatin (Zocor) 20 mg HS PO Last administered on 06/18/18at 21:07; Start at 21:00 Linagliptin (Tradjenta) 5 mg DAILY PO Last administered on 06/19/18at 09:48; Start 06/19/18 at 09:00 Insulin Human Lispro (HumaLOG) 0-5 UNITS TIDWMEALS SQ ; Start 06/18/18 at 17:00 Dextrose (Dextrose 50%-Water Syringe) 12.5 gm PRN Q15MIN PRN IV SEE COMMENTS; Start 06/18/18 at 16:45 Acetaminophen/ Hydrocodone Bitart (Lortab 5/325) 1 tab PRN Q6HRS PRN PO PAIN Last administered on 06/19/18at 06:33; Start 06/18/18 at 18:00 Propranolol HCl (Inderal) 40 mg BID PO Last administered on 06/18/18at 21:07; Start 06/18/18 at 21:00 Ropinirole HCl (Requip) 2 mg HS PO Last administered on 06/18/18at 21:07; Start 06/18/18 at 21:00 Ropinirole HCl (Requip) 1 mg DAILY PO Last administered on 06/19/18at 09:48; Start 06/19/18 at 09:00 Active Scripts Active Reported Gabapentin 100 Mg Capsule 100 Mg PO TID PRN PRN Requip (Ropinirole Hcl) 0.5 Mg Tablet 2 Mg PO DAILY Propranolol Hcl 40 Mg Tablet 1 Tab PO BID Cymbalta (Duloxetine Hcl) 60 Mg Capsule.dr 2 Cap PO DAILY Protonix (Pantoprazole Sodium) 20 Mg Tablet.dr 20 Mg PO DAILY Januvia (Sitagliptin Phosphate) 25 Mg Tablet 50 Mg PO DAILY Metformin Hcl 1,000 Mg Tablet 1,000 Mg PO BIDWMEALS Cetirizine Hcl 10 Mg Tablet 1 Tab PO BID PRN Vitamin D-3 (Cholecalciferol (Vitamin D3)) 2,000 Unit Capsule 1,000 Unit PO DAILY Multi-Vitamin Daily (Multivitamin) 1 Each Tablet 1 Each PO DAILY Simvastatin 20 Mg Tablet 1 Tab PO QHS Requip (Ropinirole Hcl) 1 Mg Tablet 4 Tab PO HS Lisinopril 20 Mg Tablet 1 Tab PO DAILY Levothyroxine Sodium 175 Mcg Tablet 1 Tab PO DAILY Vitals/I & O Vital Sign - Last 24 Hours 06/18/18 06/18/18 06/18/18 06/18/18 11:01 11:10 11:18 11:30 Pulse 67 67 74 Resp 16 Pulse Ox 97 97 97 88 O2 Delivery Room Air 06/18/18 06/18/18 06/18/18 06/18/18 11:48 11:55 12:00 12:00 Pulse 68 70 78 Resp Pulse Ox 99 100 99 98 O2 Delivery Nasal Cannula O2 Flow Rate 2.0 06/18/18 06/18/18 06/18/18 06/18/18 12:05 12:15 12:22 12:32 Pulse 74 75 77 74 Pulse Ox 99 98 99 99 06/18/18 06/18/18 06/18/18 06/18/18 12:42 12:50 13:00 14:00 Temp 98.2 98.2 Pulse 75 72 82 76 Resp 24 B/P (MAP) 143/74 (97) 145/63 (90) Pulse Ox 98 98 O2 Flow Rate 2.0 2.0 06/18/18 06/18/18 06/18/18 06/18/18 15:00 16:00 16:00 17:00 Temp 98.3 98.3 Pulse 76 74 76 Resp 18 B/P (MAP) 143/65 (91) 127/60 (82) 133/67 (89) O2 Flow Rate 2.0 2.0 2.0 2.0 06/18/18 06/18/18 06/18/18 06/18/18 18:00 19:00 20:00 20:00 Temp 98.5 98.5 Pulse 81 78 74 Resp 24 B/P (MAP) 127/56 (79) 121/57 (78) 138/72 (94) Pulse Ox 99 98 O2 Delivery Nasal Cannula Nasal Cannula Nasal Cannula O2 Flow Rate 2.0 2.0 2.0 2.0 06/18/18 06/18/18 06/18/18 06/18/18 21:00 21:06 21:07 22:00 Pulse 76 76 71 Resp 18 16 B/P (MAP) 140/67 (91) 144/88 136/62 (86) Pulse Ox 99 100 99 O2 Delivery Nasal Cannula Nasal Cannula Nasal Cannula O2 Flow Rate 2.0 2.0 2.0 06/18/18 06/18/18 06/18/18 06/19/18 22:06 23:00 23:33 00:00 Temp 98.1 98.1 Pulse 65 68 Resp 16 18 16 B/P (MAP) 133/66 (88) 148/70 (96) Pulse Ox 99 98 O2 Delivery Nasal Cannula Nasal Cannula Nasal Cannula O2 Flow Rate 2.0 2.0 2.0 06/19/18 06/19/18 06/19/18 06/19/18 01:00 02:00 03:00 03:34 Pulse 64 62 63 Resp 18 B/P (MAP) 134/68 (90) 131/63 (85) 119/62 (81) Pulse Ox 99 95 96 O2 Delivery Nasal Cannula Nasal Cannula Nasal Cannula Nasal Cannula O2 Flow Rate 2.0 2.0 2.0 2.0 06/19/18 06/19/18 06/19/18 06/19/18 04:00 05:00 06:00 06:33 Temp 98.1 98.1 Pulse 63 70 71 Resp 19 B/P (MAP) 120/61 (80) 116/62 (80) 135/62 (86) Pulse Ox 96 97 96 96 O2 Delivery Nasal Cannula Nasal Cannula Nasal Cannula Nasal Cannula O2 Flow Rate 2.0 2.0 2.0 2.0 06/19/18 07:33 Pulse Ox 96 O2 Delivery Nasal Cannula O2 Flow Rate 2.0 Intake and Output 06/18/18 06/18/18 06/19/18 15:00 23:00 07:00 Intake Total 1150 ml 1326 ml Output Total 600 ml 825 ml 1600 ml Balance -600 ml 325 ml -274 ml ISAIAS REDDY MD Jun 19, 2018 10:14
--- NOTE | 2018-06-19 11:56 | RAD ---
CT HEAD WITHOUT CONTRAST 06/19/2018 11:37 AM Indication: Follow-up, intracranial hemorrhage Comparison: CT of head without contrast June 18, 2018 Procedure: Multidetector CT imaging of the head was performed without the administration of contrast. Findings: Stable appearance of intraparenchymal hemorrhage involving the posterior left temporal lobe with surrounding vasogenic edema. Possible minimal adjacent hemorrhage in the left choroid plexus is also stable. No midline shift. Ventricles and basilar cisterns are stable in configuration. No acute osseous changes noted in the interim. IMPRESSION: Stable appearance of left temporal lobe hemorrhage with surrounding mild vasogenic edema. CT DOSING PQRS STATEMENT: One or more of the following individualized dose reduction techniques were utilized for this examination: 1. Automated exposure control 2. Adjustment of the mA and/or kV according to patient size 3. Use of iterative reconstruction technique Electronically signed by: Felix Ibanez MD (06/19/2018 11:53 AM) [id number]
--- NOTE | 2018-06-19 12:24 | NUR ---
Communication and Swallow Evaluations completed. Please refer to full reports for additional information. Swallow: Functional swallow w/ pt appearing at low risk of aspiration for regular diet and thin liquids w/ general swallow precautions. No s/s aspiration were observed w/ trials of thin liquids, puree, solids and mixed consistencies. Communication: Pt demonstrates mild-moderate expressive aphasia w/ noted impairment in word-finding (confrontational and divergent), fluency and writing. Spontaneous speech is impaired in both content and fluency, has logopenic but normal syntax, significant word-finding difficulty, nonspecific fillers (ex. those things), and occasional paraphasias. Writing deficits similar to expressive language in addition to frequent spelling and paraphasic errors. Receptive language mostly intact w/ pt able to follow multistep and complex directions w/o difficulty. Bedside Aphasia score of 73 (100=normal) on Western Aphasia Battery Bedside-Revised test. Recommendations: Regular diet w/ thin liquids and general swallow precautions. ST f/u for aphasia while in hospital. Referral to outpatient speech therapy at discharge. D/w pt and family, [place] and Dr Youngblood
[2018-06-19] MEDS: DULoxetine HCL 30 MG CAPSULE.DR PO SCH (12:37)
[2018-06-19] MEDS: PROPRANOLOL 40 MG TABLET. PO SCH ×2 (12:39→20:41)
[2018-06-19] MEDS: LISINOPRIL 20 MG TABLET PO SCH (14:05)
--- NOTE | 2018-06-19 14:58 | NUR ---
SS following for discharge planning. Pt is from home with spouse and is currently requiring oxygen. PT recommended home with assistance at discharge. SS will continue to follow for discharge planning.
[2018-06-19] MEDS: SIMVASTATIN 20 MG TABLET PO SCH (20:42)
[2018-06-20 03:00] VITALS: BP 141/56
[2018-06-20 06:55] VITALS: BP 130/67
[2018-06-20] MEDS: PANTOPRAZOLE 40 MG TABLET.DR. PO SCH (07:51)
[2018-06-20] MEDS: LEVOTHYROXINE 175 MCG TABLET PO SCH (07:51)
[2018-06-20] MEDS: INSULIN LISPRO 300 UNITS/3 ML INSULN.PEN. SQ SCH ×3 (08:00→17:00)
[2018-06-20] MEDS: LINAGLIPTIN 5 MG TABLET PO SCH (08:27)
[2018-06-20] MEDS: CHOLECALCIFEROL (VITAMIN D3) 1,000 UNIT TABLET PO SCH (08:27)
[2018-06-20] MEDS: rOPINIRole 1 MG TABLET. PO SCH ×2 (08:28→20:32)
[2018-06-20] MEDS: MULTIVITAMIN with MINERAL TABLET. PO SCH (08:28)
[2018-06-20] MEDS: DULoxetine HCL 30 MG CAPSULE.DR PO SCH (08:29)
[2018-06-20] MEDS: PROPRANOLOL 40 MG TABLET. PO SCH ×2 (08:30→20:32)
[2018-06-20] MEDS: LISINOPRIL 20 MG TABLET PO SCH (08:30)
[2018-06-20 10:51] VITALS: BP 131/62
--- NOTE | 2018-06-20 11:20 | PDOC ---
PROGRESS NOTES Chief Complaint Chief Complaint A/P: Fall - scalp hematoma and left temporal hemorrhage 3.1 cm by 2.1 cm posterior left temporal lobe hemorrhage and mild hemorrhage in left choroid plexus - , difficult to say if this is traumatic or CVA. Will consult neurology. Now at some risk of seizure, no hx of seizures Headache - likely 2/2 intracranial hemorrhage History of syncope - seen by Dr. 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 She has had a headache for the past 2-3 days as well prior to this. Was seen in [facility] ED after her co-workers noted she was acting strangely yesterday after her fall. She had a negative head CT at the time and was sent home. She is aware of her word finding deficit and finds it frustrating. had headache and was feeling strange this with word finding difficulty and confusion noted by her significant other. Head CT in our ED showed a hemorrhage in the left temporal lobe 3x2cm approximately. CTA negative for occlusion or aneurysm. MRI equivocal for infarct with hemorrhagic conversion vs hematoma. Seen by neuro, will order repeat CT head. Plan: neurology following bp control 43 min pt exam, chart review, > 50% of time with exam, chart review, pt care coordination Vitals Vitals Vital Signs Date Time Temp Pulse Resp B/P (MAP) Pulse Ox O2 Delivery O2 Flow Rate FiO2 06/20/18 10:51 98.8 77 17 131/62 (85) 97 Room Air 98.8 06/20/18 08:00 2.0 Physical Exam General: Alert, Oriented X3, Cooperative, No acute distress Heart: Regular rate Lungs: Clear Abdomen: Normal bowel sounds, Soft, No tenderness, No hepatosplenomegaly, No masses Extremities: No clubbing, No cyanosis, No edema, Normal pulses, No tenderness/ swelling Skin: No rashes, No breakdown, No significant lesion Labs LABS MRI Brain without contrast History: CVA, weakness Technique: Multiplanar, multisequential noncontrast MR imaging was performed of the brain. Comparison: Head CT earlier the same day Findings: As seen on CT, there is a fairly large focus of parenchymal hemorrhage centered in the left temporal lobe. This in isointense on the T1 sequence and mostly hypointense on T2 sequence. This is estimated about 3 cm AP by 1.8 cm transverse by about 1.1 cm cc. There is adjacent vasogenic edema signified by T2 and FLAIR hyperintense signal. There is associated prominent decreased signal on gradient echo sequence. There is some associated diffusion signal abnormality within the region of hematoma and minimally at the periphery. There is no midline shift. Ventricular size is within normal limits. There is mild T2 and FLAIR hyperintense signal abnormality of the supratentorial periventricular white matter bilaterally and also the mo. There is scattered overall mild T2 and FLAIR hyperintense signal abnormality of the supratentorial deep white matter most notable of the bilateral minor radiata left greater than right. There is mild right parietal region scalp soft tissue swelling. Paranasal sinuses are overall aerated. There is minimal patchy fluid and thickening of the right mastoid air cells. There is preservation of the major arterial flow voids at the skull base. Impression: 1. As seen on recent CT, there is acute parenchymal hematoma of the left temporal lobe with adjacent vasogenic edema. There is some associated diffusion signal abnormality. Diffusion signal change can be associated with hematoma although could also be related to hemorrhagic transformation of recent infarct. 2. There is other scattered relatively mild T2 and FLAIR hyperintense signal abnormality of the supratentorial parenchyma and mo, possibly due to chronic microvascular ischemic disease. Pattern is not particularly suggestive of an inflammatory demyelinating disease. Electronically signed by: Randall Suero MD (06/18/2018 1:04 PM) [id number] DICTATED and SIGNED BY: RANDALL SUERO MD DATE: 06/18/18 5264 Laboratory Tests Test 06/19/18 12:34 06/19/18 17:11 06/19/18 20:38 06/20/18 07:07 Glucose (Fingerstick) 150 mg/dL (70-99) 129 mg/dL (70-99) 183 mg/dL (70-99) 156 mg/dL (70-99) Assessment and Plan Assessmemt and Plan Problems Medical Problems: (1) Confusion Status: Acute (2) Intracranial hemorrhage following injury Status: Acute Comment Review of Relevant I have reviewed the following items francisco (where applicable) has been applied. Labs Laboratory Tests Test 06/18/18 13:10 06/18/18 17:55 06/19/18 05:05 06/19/18 07:56 Nasal Screen MRSA (PCR) Negative (Negative) Glucose (Fingerstick) 101 mg/dL (70-99) 133 mg/dL (70-99) Triglycerides Level 85 mg/dL (0-150) Cholesterol Level 109 mg/dL (0-200) LDL Cholesterol, Calculated 53 mg/dL (0-100) VLDL Cholesterol, Calculated 17 mg/dL (0-40) Non-HDL Cholesterol Calculated 70 mg/dL (0-129) HDL Cholesterol 39 mg/dL (40-60) Cholesterol/HDL Ratio 2.8 Test 06/19/18 12:34 06/19/18 17:11 06/19/18 20:38 06/20/18 07:07 Glucose (Fingerstick) 150 mg/dL (70-99) 129 mg/dL (70-99) 183 mg/dL (70-99) 156 mg/dL (70-99) Laboratory Tests Test 06/19/18 12:34 06/19/18 17:11 06/19/18 20:38 06/20/18 07:07 Glucose (Fingerstick) 150 mg/dL (70-99) 129 mg/dL (70-99) 183 mg/dL (70-99) 156 mg/dL (70-99) Medications Current Medications Ondansetron HCl (Zofran) 4 mg 1X ONCE IV Last administered on 06/18/18at 11:18 ; Start 06/18/18 at 11:00; Stop 06/18/18 at 11:01; Status DC Fentanyl Citrate (Fentanyl 2ml Vial) 50 mcg 1X ONCE IV Last administered on at 11:18; Start 06/18/18 at 11:00; Stop 06/18/18 at 11:01; Status DC Info (Review Meds) 1 ea PRN 1X PRN MC SEE COMMENTS; Start 06/18/18 at 11:15 Sodium Chloride (Normal Saline Flush) 3 ml QSHIFT PRN IV AFTER MEDS AND BLOOD DRAWS; Start 06/18/18 at 11:15 Sodium Chloride 1,000 ml @ 100 mls/hr Q10H IV Last administered on 06/19/18at 07:00; Start 06/18/18 at 11:07; Stop 06/19/18 at 12:14; Status DC Acetaminophen (Tylenol Supp) 650 mg PRN Q6HRS PRN AR FEVER > 100.5'F; Start at 11:15 Labetalol HCl (Normodyne Iv Push) 10 mg PRN Q10MIN PRN IVP HYPERTENSION, SEE COMMENTS; Start 06/18/18 at 11:15 Hydralazine HCl (Apresoline Inj) 10 mg PRN Q10MIN PRN IVP HYPERTENSION, SEE COMMENTS; Start 06/18/18 at 11:15 Nicardipine HCl 50 mg/Sodium Chloride 250 ml @ 25 mls/hr CONT PRN IV HYPERTENSION, SEE COMMENTS Last administered on 06/18/18at 11:54; Start 06/18/18 at 11:15 Ondansetron HCl (Zofran) 4 mg PRN Q6HRS PRN IV NAUSEA/VOMITING; Start 06/18/18 at 11:15 Iohexol (Omnipaque 300 Mg/ml) 75 ml 1X ONCE IV Last administered on 06/18/18at 12:11; Start 06/18/18 at 11:45; Stop 06/18/18 at 11:46; Status DC Info (CONTRAST GIVEN -- Rx MONITORING) 1 each PRN DAILY PRN MC SEE COMMENTS; Start 06/18/18 at 11:45; Stop 06/19/18 at 07:48; Status DC Iohexol (Omnipaque 300 Mg/ml) 75 ml 1X ONCE IV ; Start 06/18/18 at 12:00; Stop 06/18/18 at 12:03; Status DC Info (CONTRAST GIVEN -- Rx MONITORING) 1 each PRN DAILY PRN MC SEE COMMENTS; Start 06/18/18 at 12:15; Stop 06/20/18 at 12:14 Cetirizine HCl (ZyrTEC) 10 mg PRN DAILY PRN PO symptoms Last administered on at 09:49; Start 06/18/18 at 16:45 Levothyroxine Sodium (Synthroid) 175 mcg DAILY07 PO Last administered on at 07:51; Start 06/19/18 at 07:00 Lisinopril (Prinivil) 20 mg DAILY PO Last administered on 06/20/18at 08:30; Start 06/19/18 at 09:00 Vitamin D (Vitamin D3) 1,000 unit DAILY PO Last administered on 06/20/18at 08:27 ; Start 06/19/18 at 09:00 Citalopram Hydrobromide (CeleXA) 40 mg DAILY PO ; Start 06/19/18 at 09:00; Stop 06/19/18 at 11:04; Status DC Multivitamins (Thera M Plus) 1 tab DAILY PO Last administered on 06/20/18at 08: 28; Start 06/19/18 at 09:00 Pantoprazole Sodium (Protonix) 40 mg DAILYAC PO Last administered on 06/20/18at 07:51; Start 06/19/18 at 07:30 Propranolol HCl (Inderal La) 120 mg HS PO ; Start 06/18/18 at 21:00; Stop at 21:00; Status DC Ropinirole HCl (Requip) 2 mg DAILY PO ; Start 06/19/18 at 09:00; Stop 06/19/18 at 09:00; Status DC Simvastatin (Zocor) 20 mg HS PO Last administered on 06/19/18at 20:42; Start at 21:00 Linagliptin (Tradjenta) 5 mg DAILY PO Last administered on 06/20/18at 08:27; Start 06/19/18 at 09:00 Insulin Human Lispro (HumaLOG) 0-5 UNITS TIDWMEALS SQ ; Start 06/18/18 at 17:00 Dextrose (Dextrose 50%-Water Syringe) 12.5 gm PRN Q15MIN PRN IV SEE COMMENTS; Start 06/18/18 at 16:45 Acetaminophen/ Hydrocodone Bitart (Lortab 5/325) 1 tab PRN Q6HRS PRN PO PAIN Last administered on 06/19/18 17:21; Start 06/18/18 at 18:00 Propranolol HCl (Inderal) 40 mg BID PO Last administered on 06/20/18at 08:30; Start 06/18/18 at 21:00 Ropinirole HCl (Requip) 2 mg HS PO Last administered on 06/19/18at 20:42; Start 06/18/18 at 21:00 Ropinirole HCl (Requip) 1 mg DAILY PO Last administered on 06/20/18 08:28; Start 06/19/18 at 09:00 Duloxetine HCl (Cymbalta) 120 mg DAILY PO Last administered on 06/20/18at 08:29 ; Start 06/19/18 at 11:00 Active Scripts Active Reported Gabapentin 100 Mg Capsule 100 Mg PO TID PRN PRN Requip (Ropinirole Hcl) 0.5 Mg Tablet 2 Mg PO DAILY Propranolol Hcl 40 Mg Tablet 1 Tab PO BID Cymbalta (Duloxetine Hcl) 60 Mg Capsule.dr 2 Cap PO DAILY Protonix (Pantoprazole Sodium) 20 Mg Tablet.dr 20 Mg PO DAILY Januvia (Sitagliptin Phosphate) 25 Mg Tablet 50 Mg PO DAILY Metformin Hcl 1,000 Mg Tablet 1,000 Mg PO BIDWMEALS Cetirizine Hcl 10 Mg Tablet 1 Tab PO BID PRN Vitamin D-3 (Cholecalciferol (Vitamin D3)) 2,000 Unit Capsule 1,000 Unit PO DAILY Multi-Vitamin Daily (Multivitamin) 1 Each Tablet 1 Each PO DAILY Simvastatin 20 Mg Tablet 1 Tab PO QHS Requip (Ropinirole Hcl) 1 Mg Tablet 4 Tab PO HS Lisinopril 20 Mg Tablet 1 Tab PO DAILY Levothyroxine Sodium 175 Mcg Tablet 1 Tab PO DAILY Vitals/I & O Vital Sign - Last 24 Hours 06/19/18 06/19/18 06/19/18 06/19/18 12:00 12:00 12:39 14:05 Temp 98.9 98.9 Pulse 69 79 76 Resp 23 B/P (MAP) 135/62 (86) 138/68 153/94 Pulse Ox 97 O2 Delivery Room Air Room Air 06/19/18 06/19/18 06/19/18 06/19/18 16:00 17:21 18:21 19:51 Temp 99.1 97.6 99.1 97.6 Pulse 70 76 Resp 24 16 14 16 B/P (MAP) 132/70 (90) 136/67 (90) Pulse Ox 98 98 98 94 O2 Delivery Nasal Cannula Room Air Room Air Room Air O2 Flow Rate 2.0 2.0 06/19/18 06/19/18 06/19/18 06/20/18 20:00 20:41 23:11 03:00 Temp 98.7 98.8 98.7 98.8 Pulse 76 59 64 Resp 16 16 B/P (MAP) 136/67 149/71 (97) 141/56 (84) Pulse Ox 96 99 O2 Delivery Room Air Room Air Room Air 06/20/18 06/20/18 06/20/18 06/20/18 06:55 08:00 08:30 08:30 Temp 98.5 98.5 Pulse 67 67 67 Resp 16 B/P (MAP) 130/67 (88) 130/67 130/67 Pulse Ox 95 O2 Delivery Room Air Room Air O2 Flow Rate 2.0 06/20/18 10:51 Temp 98.8 98.8 Pulse 77 Resp 17 B/P (MAP) 131/62 (85) Pulse Ox 97 O2 Delivery Room Air Intake and Output 06/19/18 06/19/18 06/20/18 14:59 22:59 06:59 Intake Total 388 ml 840 ml Output Total 300 ml Balance 88 ml 840 ml ANTONIETA MURRY MD Jun 20, 2018 11:20
--- NOTE | 2018-06-20 12:18 | NUR ---
PT evaluated the patient today, relayed to me that she has a significant drop in BP from supine at 188/59 to standing 131/62. Dr. Marinelli updated of patient's assessment at 1126, received instruction to check orthostatic BP after 3 hours.
--- NOTE | 2018-06-20 14:39 | PDOC ---
PROGRESS NOTES Assessment Problems Medical Problems: (1) Confusion Status: Acute (2) Intracranial hemorrhage following injury Status: Acute Posterior left temporal lobe hemorrhage and mild hemorrhage in left choroid plexus. Workup is negative so far, most likely she had a small AVM that obliterated itself. This is an atypical location for hypertensive hemorrhage, there is no sign of a mass lesion, and she does not have significant hypertension. A hemorrhage into a bland infarct is less likely given the history of headache. I doubt this is a posttraumatic hemorrhage History of syncope Recent diagnosis of obstructive sleep apnea Complains of left foot pain following the fall 2 days ago Plan Observe overnight Aim for discharge tomorrow with outpatient therapies See orders regarding blood pressure parameters and antihypertensives Rehabilitation modalities Holding on instituting CPAP treatment given the hemorrhage. She will follow-up with Dr. Monreal as scheduled and most likely will require repeat head CT and CTA for completeness, then. Discussed with patient and her brother Subjective No other complaints Objective Vital Signs Date Time Temp Pulse Resp B/P (MAP) Pulse Ox O2 Delivery O2 Flow Rate FiO2 06/20/18 10:51 98.8 77 17 131/62 (85) 97 Room Air 98.8 06/20/18 08:00 2.0 Intake and Output 06/20/18 06:59 Intake Total 1228 ml Output Total 300 ml Balance 928 ml Intake Oral 840 ml IV Total 388 ml Output Urine Total 300 ml # Voids 5 PHYSICAL EXAM Alert. Oriented to time, place and person. Expressive speech much better PERRL. EOMI. CN: no focal findings. Muscle tone: normal. Muscle strength: 5/5 DTR: 2+ Plantar reflex: flexor Gait: Antalgic, favoring left foot. Sensory exam: no abnormal findings. No cerebellar signs elicited. Review of Relevant I have reviewed the following items francisco (where applicable) has been applied. Labs Laboratory Tests Test 06/18/18 17:55 06/19/18 05:05 06/19/18 07:56 06/19/18 12:34 Glucose (Fingerstick) 101 mg/dL (70-99) 133 mg/dL (70-99) 150 mg/dL (70-99) Triglycerides Level 85 mg/dL (0-150) Cholesterol Level 109 mg/dL (0-200) LDL Cholesterol, Calculated 53 mg/dL (0-100) VLDL Cholesterol, Calculated 17 mg/dL (0-40) Non-HDL Cholesterol Calculated 70 mg/dL (0-129) HDL Cholesterol 39 mg/dL (40-60) Cholesterol/HDL Ratio 2.8 Test 06/19/18 17:11 06/19/18 20:38 06/20/18 07:07 06/20/18 12:01 Glucose (Fingerstick) 129 mg/dL (70-99) 183 mg/dL (70-99) 156 mg/dL (70-99) 105 mg/dL (70-99) Laboratory Tests Test 06/19/18 17:11 06/19/18 20:38 06/20/18 07:07 06/20/18 12:01 Glucose (Fingerstick) 129 mg/dL (70-99) 183 mg/dL (70-99) 156 mg/dL (70-99) 105 mg/dL (70-99) Medications Current Medications Ondansetron HCl (Zofran) 4 mg 1X ONCE IV Last administered on 06/18/18at 11:18 ; Start 06/18/18 at 11:00; Stop 06/18/18 at 11:01; Status DC Fentanyl Citrate (Fentanyl 2ml Vial) 50 mcg 1X ONCE IV Last administered on at 11:18; Start 06/18/18 at 11:00; Stop 06/18/18 at 11:01; Status DC Info (Review Meds) 1 ea PRN 1X PRN MC SEE COMMENTS; Start 06/18/18 at 11:15 Sodium Chloride (Normal Saline Flush) 3 ml QSHIFT PRN IV AFTER MEDS AND BLOOD DRAWS; Start 06/18/18 at 11:15 Sodium Chloride 1,000 ml @ 100 mls/hr Q10H IV Last administered on 06/19/18at 07:00; Start 06/18/18 at 11:07; Stop 06/19/18 at 12:14; Status DC Acetaminophen (Tylenol Supp) 650 mg PRN Q6HRS PRN IN FEVER > 100.5'F; Start at 11:15 Labetalol HCl (Normodyne Iv Push) 10 mg PRN Q10MIN PRN IVP HYPERTENSION, SEE COMMENTS; Start 06/18/18 at 11:15 Hydralazine HCl (Apresoline Inj) 10 mg PRN Q10MIN PRN IVP HYPERTENSION, SEE COMMENTS; Start 06/18/18 at 11:15 Nicardipine HCl 50 mg/Sodium Chloride 250 ml @ 25 mls/hr CONT PRN IV HYPERTENSION, SEE COMMENTS Last administered on 06/18/18at 11:54; Start 06/18/18 at 11:15 Ondansetron HCl (Zofran) 4 mg PRN Q6HRS PRN IV NAUSEA/VOMITING; Start 06/18/18 at 11:15 Iohexol (Omnipaque 300 Mg/ml) 75 ml 1X ONCE IV Last administered on 06/18/18at 12:11; Start 06/18/18 at 11:45; Stop 06/18/18 at 11:46; Status DC Info (CONTRAST GIVEN -- Rx MONITORING) 1 each PRN DAILY PRN MC SEE COMMENTS; Start 06/18/18 at 11:45; Stop 06/19/18 at 07:48; Status DC Iohexol (Omnipaque 300 Mg/ml) 75 ml 1X ONCE IV ; Start 06/18/18 at 12:00; Stop 06/18/18 at 12:03; Status DC Info (CONTRAST GIVEN -- Rx MONITORING) 1 each PRN DAILY PRN MC SEE COMMENTS; Start 06/18/18 at 12:15; Stop 06/20/18 at 12:14; Status DC Cetirizine HCl (ZyrTEC) 10 mg PRN DAILY PRN PO symptoms Last administered on at 09:49; Start 06/18/18 at 16:45 Levothyroxine Sodium (Synthroid) 175 mcg DAILY07 PO Last administered on at 07:51; Start 06/19/18 at 07:00 Lisinopril (Prinivil) 20 mg DAILY PO Last administered on 06/20/18at 08:30; Start 06/19/18 at 09:00 Vitamin D (Vitamin D3) 1,000 unit DAILY PO Last administered on 06/20/18at 08:27 ; Start 06/19/18 at 09:00 Citalopram Hydrobromide (CeleXA) 40 mg DAILY PO ; Start 06/19/18 at 09:00; Stop 06/19/18 at 11:04; Status DC Multivitamins (Thera M Plus) 1 tab DAILY PO Last administered on 06/20/18at 08: 28; Start 06/19/18 at 09:00 Pantoprazole Sodium (Protonix) 40 mg DAILYAC PO Last administered on 06/20/18at 07:51; Start 06/19/18 at 07:30 Propranolol HCl (Inderal La) 120 mg HS PO ; Start 06/18/18 at 21:00; Stop at 21:00; Status DC Ropinirole HCl (Requip) 2 mg DAILY PO ; Start 06/19/18 at 09:00; Stop 06/19/18 at 09:00; Status DC Simvastatin (Zocor) 20 mg HS PO Last administered on 06/19/18at 20:42; Start at 21:00 Linagliptin (Tradjenta) 5 mg DAILY PO Last administered on 06/20/18at 08:27; Start 06/19/18 at 09:00 Insulin Human Lispro (HumaLOG) 0-5 UNITS TIDWMEALS SQ ; Start 06/18/18 at 17:00 Dextrose (Dextrose 50%-Water Syringe) 12.5 gm PRN Q15MIN PRN IV SEE COMMENTS; Start 06/18/18 at 16:45 Acetaminophen/ Hydrocodone Bitart (Lortab 5/325) 1 tab PRN Q6HRS PRN PO PAIN Last administered on 06/19/18at 17:21; Start 06/18/18 at 18:00 Propranolol HCl (Inderal) 40 mg BID PO Last administered on 06/20/18at 08:30; Start 06/18/18 at 21:00 Ropinirole HCl (Requip) 2 mg HS PO Last administered on 06/19/18at 20:42; Start 06/18/18 at 21:00 Ropinirole HCl (Requip) 1 mg DAILY PO Last administered on 06/20/18at 08:28; Start 06/19/18 at 09:00 Duloxetine HCl (Cymbalta) 120 mg DAILY PO Last administered on 06/20/18at 08:29 ; Start 06/19/18 at 11:00 Active Scripts Active Reported Gabapentin 100 Mg Capsule 100 Mg PO TID PRN PRN Requip (Ropinirole Hcl) 0.5 Mg Tablet 2 Mg PO DAILY Propranolol Hcl 40 Mg Tablet 1 Tab PO BID Cymbalta (Duloxetine Hcl) 60 Mg Capsule.dr 2 Cap PO DAILY Protonix (Pantoprazole Sodium) 20 Mg Tablet.dr 20 Mg PO DAILY Januvia (Sitagliptin Phosphate) 25 Mg Tablet 50 Mg PO DAILY Metformin Hcl 1,000 Mg Tablet 1,000 Mg PO BIDWMEALS Cetirizine Hcl 10 Mg Tablet 1 Tab PO BID PRN Vitamin D-3 (Cholecalciferol (Vitamin D3)) 2,000 Unit Capsule 1,000 Unit PO DAILY Multi-Vitamin Daily (Multivitamin) 1 Each Tablet 1 Each PO DAILY Simvastatin 20 Mg Tablet 1 Tab PO QHS Requip (Ropinirole Hcl) 1 Mg Tablet 4 Tab PO HS Lisinopril 20 Mg Tablet 1 Tab PO DAILY Levothyroxine Sodium 175 Mcg Tablet 1 Tab PO DAILY Vitals/I & O Vital Sign - Last 24 Hours 06/19/18 06/19/18 06/19/18 06/19/18 16:00 17:21 18:21 19:51 Temp 99.1 97.6 99.1 97.6 Pulse 70 76 Resp 24 16 14 16 B/P (MAP) 132/70 (90) 136/67 (90) Pulse Ox 98 98 98 94 O2 Delivery Nasal Cannula Room Air Room Air Room Air O2 Flow Rate 2.0 2.0 06/19/18 06/19/18 06/19/18 06/20/18 20:00 20:41 23:11 03:00 Temp 98.7 98.8 98.7 98.8 Pulse 76 59 64 Resp 16 16 B/P (MAP) 136/67 149/71 (97) 141/56 (84) Pulse Ox 96 99 O2 Delivery Room Air Room Air Room Air 06/20/18 06/20/18 06/20/18 06/20/18 06:55 08:00 08:30 08:30 Temp 98.5 98.5 Pulse 67 67 67 Resp 16 B/P (MAP) 130/67 (88) 130/67 130/67 Pulse Ox 95 O2 Delivery Room Air Room Air O2 Flow Rate 2.0 06/20/18 10:51 Temp 98.8 98.8 Pulse 77 Resp 17 B/P (MAP) 131/62 (85) Pulse Ox 97 O2 Delivery Room Air Intake and Output 06/19/18 06/19/18 06/20/18 14:59 22:59 06:59 Intake Total 388 ml 840 ml Output Total 300 ml Balance 88 ml [address] HEAD WITHOUT CONTRAST 06/19/2018 11:37 AM Stable appearance of intraparenchymal hemorrhage involving the posterior left temporal lobe with surrounding vasogenic edema. Possible minimal adjacent hemorrhage in the left choroid plexus is also stable. No midline shift. Ventricles and basilar cisterns are stable in configuration. No acute osseous changes noted in the interim. IMPRESSION: Stable appearance of left temporal lobe hemorrhage with surrounding mild vasogenic edema. ISAIAS REDDY MD Jun 20, 2018 14:39
[2018-06-20 15:00] VITALS: BP 138/72
--- NOTE | 2018-06-20 15:16 | RAD ---
AP and lateral views left foot 06/20/2018 1:56 PM Indication: PT STATES HAVING PAIN ON TOP OF FOOT, PASSED OUT SUNDAY. Comparison: None Findings: No fracture or dislocation is identified. A mild hallux valgus deformity is noted with associated joint space narrowing and mild subchondral sclerosis. No acute soft tissue changes are identified. IMPRESSION: 1. No evidence of acute osseous abnormality 2. Mild hallux valgus deformity with mild associated degenerative change Electronically signed by: Felix Ibanez MD (06/20/2018 3:13 PM) [id number]
[2018-06-20] MEDS: HYDROcodone/APAP 5/325MG 1 TAB TABLET PO PRN (18:13)
[2018-06-20 19:10] VITALS: BP 112/49
[2018-06-20] MEDS: SIMVASTATIN 20 MG TABLET PO SCH (20:32)
[2018-06-20] MEDS ORDERED: MORPHINE SULFATE 4 MG/ML VIAL. IV PRN (21:00)
[2018-06-20 23:27] VITALS: BP 104/53
[2018-06-21 03:09] VITALS: BP 136/68
[2018-06-21] MEDS: LEVOTHYROXINE 175 MCG TABLET PO SCH (06:03)
[2018-06-21] MEDS: HYDROcodone/APAP 5/325MG 1 TAB TABLET PO PRN ×2 (06:04→20:13)
[2018-06-21 07:00] VITALS: BP 134/62
[2018-06-21] MEDS ORDERED: MAGNESIUM CITRATE 296 ML SOLUTION. PO ONE (08:00)
[2018-06-21] MEDS ORDERED: POLYETHYLENE GLYCOL 3350 17 GM PACKET. PO ONE (08:00)
[2018-06-21] MEDS ORDERED: SENNOSIDES 8.6 MG TABLET PO ONE (08:00)
[2018-06-21] MEDS: INSULIN LISPRO 300 UNITS/3 ML INSULN.PEN. SQ SCH ×3 (08:00→17:00)
[2018-06-21] MEDS: DULoxetine HCL 30 MG CAPSULE.DR PO SCH (08:56)
[2018-06-21] MEDS: LINAGLIPTIN 5 MG TABLET PO SCH (08:56)
[2018-06-21] MEDS: CHOLECALCIFEROL (VITAMIN D3) 1,000 UNIT TABLET PO SCH (08:56)
[2018-06-21] MEDS: MULTIVITAMIN with MINERAL TABLET. PO SCH (08:57)
[2018-06-21] MEDS: rOPINIRole 1 MG TABLET. PO SCH ×2 (08:57→20:12)
[2018-06-21] MEDS: LISINOPRIL 20 MG TABLET PO SCH (08:57)
[2018-06-21] MEDS: PROPRANOLOL 40 MG TABLET. PO SCH ×2 (08:58→20:18)
[2018-06-21] MEDS: PANTOPRAZOLE 40 MG TABLET.DR. PO SCH (08:58)
--- NOTE | 2018-06-21 09:45 | PDOC ---
PROGRESS NOTES Chief Complaint Chief Complaint A/P: mild-moderate expressive aphasia w/ noted impairment in word-finding (confrontational and divergent) 06/21 Fall - scalp hematoma and left temporal hemorrhage 3.1 cm by 2.1 cm posterior left temporal lobe hemorrhage and mild hemorrhage in left choroid plexus - , difficult to say if this is traumatic or CVA. Will consult neurology. Now at some risk of seizure, no hx of seizures Headache - likely 2/2 intracranial hemorrhage History of syncope - seen by Dr. 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 STEPHANIE 43 MIN PT EXAM, CHART REVIEW, > 50% OF TIME SPENT WITH EXAM, CHART REVIEW, PT CARE COORDINATION History of Present Illness History of Present Illness Ms Stearns is a 62yo F w/ PMHx Anxiety, Depression, Diabetes-Type II, High Cholesterol, Hypertension, Hypothyroid s/p radioactive iodine ablation, RLS, Syncope, narcolepsy/cataplexy, YUKI on CPAP (about to start using), Obesity s/p gastric bypass who present to ED with progressive confusion and word finding difficulty after a fall @ 7am 06/17/18. She has had a headache for the past 2-3 days as well prior to this. Was seen in [facility] ED after her co-workers noted she was acting strangely yesterday after her fall. She had a negative head CT at the time and was sent home. She is aware of her word finding deficit and finds it frustrating. had headache and was feeling strange this with word finding difficulty and confusion noted by her significant other. Head CT in our ED showed a hemorrhage in the left temporal lobe 3x2cm approximately. CTA negative for occlusion or aneurysm. MRI equivocal for infarct with hemorrhagic conversion vs hematoma. Seen by neuro, Plan: neurology following bp control 43 min pt exam, chart review, > 50% of time with exam, chart review, pt care coordination Vitals Vitals Vital Signs Date Time Temp Pulse Resp B/P (MAP) Pulse Ox O2 Delivery O2 Flow Rate FiO2 06/21/18 08:58 61 134/62 06/21/18 07:05 18 96 Room Air 06/21/18 07:00 97.6 97.6 06/20/18 08:00 2.0 Physical Exam General: Alert, Oriented X3, Cooperative, No acute distress, mild distress Heart: Regular rate Lungs: Clear Abdomen: Normal bowel sounds, Soft, No tenderness, No hepatosplenomegaly, No masses Extremities: No clubbing, No cyanosis, No edema, Normal pulses, No tenderness/ swelling Skin: No rashes, No breakdown, No significant lesion Labs LABS CT HEAD WITHOUT CONTRAST 06/19/2018 11:37 AM Indication: Follow-up, intracranial hemorrhage Comparison: CT of head without contrast June 18, 2018 Procedure: Multidetector CT imaging of the head was performed without the administration of contrast. Findings: Stable appearance of intraparenchymal hemorrhage involving the posterior left temporal lobe with surrounding vasogenic edema. Possible minimal adjacent hemorrhage in the left choroid plexus is also stable. No midline shift. Ventricles and basilar cisterns are stable in configuration. No acute osseous changes noted in the interim. IMPRESSION: Stable appearance of left temporal lobe hemorrhage with surrounding mild vasogenic edema. CT DOSING PQRS STATEMENT: One or more of the following individualized dose reduction techniques were utilized for this examination: 1. Automated exposure control 2. Adjustment of the mA and/or kV according to patient size 3. Use of iterative reconstruction technique Electronically signed by: Felix Cantu MD (06/19/2018 11:53 AM) [id number] DICTATED and SIGNED BY: FELIX CANTU MD DATE: 06/19/18 1153 Laboratory Tests Test 06/20/18 12:01 06/20/18 16:49 06/20/18 19:42 06/21/18 07:31 Glucose (Fingerstick) 105 mg/dL (70-99) 135 mg/dL (70-99) 226 mg/dL (70-99) 130 mg/dL (70-99) Review of Systems Review of Systems * 3x/wk over 7 days Impressions * Pt demonstrates mild-moderate expressive aphasia w/ noted impairment in word-finding (confrontational and divergent), fluency and writing. Spontaneous speech is impaired in both content and fluency, has logopenic but normal syntax, significant word-finding difficulty, nonspecific fillers (ex. those things), and occasional paraphasias. Writing deficits simular to expressive language in addition to frequent spelling and paraphasic errors. Pt able to match word to category 80% for basic items and name 1-2 words in basic category. Pt able to read single words and phrases 80% of time today, longer reading presented difficulty. Receptive language mostly intact w/ pt able to follow multistep and complex directions w/o difficulty. Bedside Aphasia score of 73 (100=normal) on Western Aphasia Battery Bedside-Revised test on 06/19. Impressions: Contiues mild-moderate aphasia, able to name 1-2 items in a category today vs rarely able to name 1 item yesterday. Improved recall of family names. Reading and writing deficits present as well as expressive language impairments. Recommendations: Contniue ST per POC. Outpatient therapy recommended when pt discharged. Results communicated with: * RN, pt and family Discharge Recommendations * Home with outpatient Assessment and Plan Assessmemt and Plan Problems Medical Problems: (1) Confusion Status: Acute (2) Intracranial hemorrhage following injury Status: Acute Comment Review of Relevant I have reviewed the following items francisco (where applicable) has been applied. Labs Laboratory Tests Test 06/19/18 12:34 06/19/18 17:11 06/19/18 20:38 06/20/18 07:07 Glucose (Fingerstick) 150 mg/dL (70-99) 129 mg/dL (70-99) 183 mg/dL (70-99) 156 mg/dL (70-99) Test 06/20/18 12:01 06/20/18 16:49 06/20/18 19:42 06/21/18 07:31 Glucose (Fingerstick) 105 mg/dL (70-99) 135 mg/dL (70-99) 226 mg/dL (70-99) 130 mg/dL (70-99) Laboratory Tests Test 06/20/18 12:01 06/20/18 16:49 06/20/18 19:42 06/21/18 07:31 Glucose (Fingerstick) 105 mg/dL (70-99) 135 mg/dL (70-99) 226 mg/dL (70-99) 130 mg/dL (70-99) Microbiology 06/18/18 Urine Culture - Preliminary, Resulted 06/18/18 Urine Culture Result 1 (JOHN) - Preliminary, Resulted Medications Current Medications Ondansetron HCl (Zofran) 4 mg 1X ONCE IV Last administered on 06/18/18at 11:18 ; Start 06/18/18 at 11:00; Stop 06/18/18 at 11:01; Status DC Fentanyl Citrate (Fentanyl 2ml Vial) 50 mcg 1X ONCE IV Last administered on at 11:18; Start 06/18/18 at 11:00; Stop 06/18/18 at 11:01; Status DC Info (Review Meds) 1 ea PRN 1X PRN MC SEE COMMENTS; Start 06/18/18 at 11:15 Sodium Chloride (Normal Saline Flush) 3 ml QSHIFT PRN IV AFTER MEDS AND BLOOD DRAWS; Start 06/18/18 at 11:15 Sodium Chloride 1,000 ml @ 100 mls/hr Q10H IV Last administered on 06/19/18at 07:00; Start 06/18/18 at 11:07; Stop 06/19/18 at 12:14; Status DC Acetaminophen (Tylenol Supp) 650 mg PRN Q6HRS PRN [place] FEVER > 100.5'F; Start at 11:15 Labetalol HCl (Normodyne Iv Push) 10 mg PRN Q10MIN PRN IVP HTN, SEE COMMENTS, 1st Choice; Start 06/18/18 at 11:15 Hydralazine HCl (Apresoline Inj) 10 mg PRN Q10MIN PRN IVP HYPERTENSION, SEE COMMENTS; Start 06/18/18 at 11:15 Nicardipine HCl 50 mg/Sodium Chloride 250 ml @ 25 mls/hr CONT PRN IV HYPERTENSION, SEE COMMENTS Last administered on 06/18/18at 11:54; Start 06/18/18 at 11:15; Stop 06/20/18 at 16:03; Status DC Ondansetron HCl (Zofran) 4 mg PRN Q6HRS PRN IV NAUSEA/VOMITING; Start 06/18/18 at 11:15 Iohexol (Omnipaque 300 Mg/ml) 75 ml 1X ONCE IV Last administered on 06/18/18at 12:11; Start 06/18/18 at 11:45; Stop 06/18/18 at 11:46; Status DC Info (CONTRAST GIVEN -- Rx MONITORING) 1 each PRN DAILY PRN MC SEE COMMENTS; Start 06/18/18 at 11:45; Stop 06/19/18 at 07:48; Status DC Iohexol (Omnipaque 300 Mg/ml) 75 ml 1X ONCE IV ; Start 06/18/18 at 12:00; Stop 06/18/18 at 12:03; Status DC Info (CONTRAST GIVEN -- Rx MONITORING) 1 each PRN DAILY PRN MC SEE COMMENTS; Start 06/18/18 at 12:15; Stop 06/20/18 at 12:14; Status DC Cetirizine HCl (ZyrTEC) 10 mg PRN DAILY PRN PO Allergy Symptoms Last administered on 06/19/18at 09:49; Start 06/18/18 at 16:45 Levothyroxine Sodium (Synthroid) 175 mcg DAILY07 PO Last administered on at 06:03; Start 06/19/18 at 07:00 Lisinopril (Prinivil) 20 mg DAILY PO Last administered on 06/21/18at 08:57; Start 06/19/18 at 09:00 Vitamin D (Vitamin D3) 1,000 unit DAILY PO Last administered on 06/21/18at 08:56 ; Start 06/19/18 at 09:00 Citalopram Hydrobromide (CeleXA) 40 mg DAILY PO ; Start 06/19/18 at 09:00; Stop 06/19/18 at 11:04; Status DC Multivitamins (Thera M Plus) 1 tab DAILY PO Last administered on 06/21/18at 08: 57; Start 06/19/18 at 09:00 Pantoprazole Sodium (Protonix) 40 mg DAILYAC PO Last administered on 06/21/18at 08:58; Start 06/19/18 at 07:30 Propranolol HCl (Inderal La) 120 mg HS PO ; Start 06/18/18 at 21:00; Stop at 21:00; Status DC Ropinirole HCl (Requip) 2 mg DAILY PO ; Start 06/19/18 at 09:00; Stop 06/19/18 at 09:00; Status DC Simvastatin (Zocor) 20 mg HS PO Last administered on 06/20/18 20:32; Start at 21:00 Linagliptin (Tradjenta) 5 mg DAILY PO Last administered on 06/21/18 08:56; Start 06/19/18 at 09:00 Insulin Human Lispro (HumaLOG) 0-5 UNITS TIDWMEALS SQ ; Start 06/18/18 at 17:00 Dextrose (Dextrose 50%-Water Syringe) 12.5 gm PRN Q15MIN PRN IV SEE COMMENTS; Start 06/18/18 at 16:45 Acetaminophen/ Hydrocodone Bitart (Lortab 5/325) 1 tab PRN Q6HRS PRN PO PAIN Last administered on 06/21/18 06:04; Start 06/18/18 at 18:00 Propranolol HCl (Inderal) 40 mg BID PO Last administered on 06/21/18 08:58; Start 06/18/18 at 21:00 Ropinirole HCl (Requip) 2 mg HS PO Last administered on 06/20/18 20:32; Start 06/18/18 at 21:00 Ropinirole HCl (Requip) 1 mg DAILY PO Last administered on 06/21/18 08:57; Start 06/19/18 at 09:00 Duloxetine HCl (Cymbalta) 120 mg DAILY PO Last administered on 06/21/18 08:56 ; Start 06/19/18 at 11:00 Morphine Sulfate (Morphine Sulfate) 4 mg PRN Q4HRS PRN IV PAIN MILD Last administered on 06/20/18at 21:12; Start 06/20/18 at 21:00 Sennosides (Senna) 17.2 mg 1X ONCE PO Last administered on 06/21/18 08:59; Start 06/21/18 at 08:00; Stop 06/21/18 at 08:01; Status DC Polyethylene Glycol (miraLAX PACKET) 17 gm 1X ONCE PO ; Start 06/21/18 at 08:00 ; Stop 06/21/18 at 08:01; Status DC Magnesium Citrate (Citroma) 296 ml 1X ONCE PO ; Start 06/21/18 at 08:00; Stop 06/21/18 at 08:01; Status DC Active Scripts Active Reported Gabapentin 100 Mg Capsule 100 Mg PO TID PRN PRN Requip (Ropinirole Hcl) 0.5 Mg Tablet 2 Mg PO DAILY Propranolol Hcl 40 Mg Tablet 1 Tab PO BID Cymbalta (Duloxetine Hcl) 60 Mg Capsule.dr 2 Cap PO DAILY Protonix (Pantoprazole Sodium) 20 Mg Tablet.dr 20 Mg PO DAILY Januvia (Sitagliptin Phosphate) 25 Mg Tablet 50 Mg PO DAILY Metformin Hcl 1,000 Mg Tablet 1,000 Mg PO BIDWMEALS Cetirizine Hcl 10 Mg Tablet 1 Tab PO BID PRN Vitamin D-3 (Cholecalciferol (Vitamin D3)) 2,000 Unit Capsule 1,000 Unit PO DAILY Multi-Vitamin Daily (Multivitamin) 1 Each Tablet 1 Each PO DAILY Simvastatin 20 Mg Tablet 1 Tab PO QHS Requip (Ropinirole Hcl) 1 Mg Tablet 4 Tab PO HS Lisinopril 20 Mg Tablet 1 Tab PO DAILY Levothyroxine Sodium 175 Mcg Tablet 1 Tab PO DAILY Vitals/I & O Vital Sign - Last 24 Hours 06/20/18 06/20/18 06/20/18 06/20/18 10:51 15:00 18:13 19:10 Temp 98.8 98.3 97.6 98.8 98.3 97.6 Pulse 77 64 64 Resp 17 20 19 20 B/P (MAP) 131/62 (85) 138/72 (94) 112/49 (70) Pulse Ox 97 93 93 99 O2 Delivery Room Air Room Air Room Air Room Air 06/20/18 06/20/18 06/20/18 06/20/18 20:00 20:32 21:12 21:42 Pulse 64 B/P (MAP) 112/49 O2 Delivery Room Air Room Air Room Air 06/20/18 06/21/18 06/21/18 06/21/18 23:27 03:09 06:04 07:00 Temp 98.0 98.1 97.6 98.0 98.1 97.6 Pulse 55 55 61 Resp 18 18 17 B/P (MAP) 104/53 (70) 136/68 (90) 134/62 (86) Pulse Ox 98 96 96 O2 Delivery Room Air Room Air Room Air Room Air 06/21/18 06/21/18 06/21/18 07:05 08:57 08:58 Pulse 61 61 Resp 18 B/P (MAP) 134/62 134/62 Pulse Ox 96 O2 Delivery Room Air Intake and Output 06/20/18 06/20/18 06/21/18 15:00 23:00 07:00 Intake Total 480 ml 300 ml 0 ml Balance 480 ml 300 ml 0 ml ANTONIETA MURRY MD Jun 21, 2018 09:45
--- NOTE | 2018-06-21 09:46 | PDOC ---
PROGRESS NOTES Assessment Problems Medical Problems: (1) Confusion Status: Acute (2) Intracranial hemorrhage following injury Status: Acute Posterior left temporal lobe hemorrhage and mild hemorrhage in left choroid plexus. Workup is negative so far, most likely she had a small AVM that obliterated itself. This is an atypical location for hypertensive hemorrhage, there is no sign of a mass lesion, and she does not have significant hypertension. A hemorrhage into a bland infarct is less likely given the history of headache. I doubt this is a posttraumatic hemorrhage History of syncope Recent diagnosis of obstructive sleep apnea Complains of left foot pain following the fall 2 days ago, X-rays negative Plan Okay for discharge Outpatient speech therapy See orders regarding blood pressure parameters and antihypertensives Rehabilitation modalities Holding on instituting CPAP treatment given the hemorrhage. She will follow-up with Dr. Monreal as scheduled and most likely will require repeat head CT and CTA for completeness, then. Discussed with patient and her daughter Subjective Left foot still hurts Objective Vital Signs Date Time Temp Pulse Resp B/P (MAP) Pulse Ox O2 Delivery O2 Flow Rate FiO2 06/21/18 08:58 61 134/62 06/21/18 07:05 18 96 Room Air 06/21/18 07:00 97.6 97.6 06/20/18 08:00 2.0 Intake and Output 06/21/18 07:00 Intake Total 780 ml Balance 780 ml Intake Oral 780 ml # Voids 1 PHYSICAL EXAM Alert. Oriented to time, place and person. Expressive speech much better PERRL. EOMI. CN: no focal findings. Muscle tone: normal. Muscle strength: 5/5 DTR: 2+ Plantar reflex: flexor Gait: Antalgic, favoring left foot. Sensory exam: no abnormal findings. No cerebellar signs elicited. Review of Relevant I have reviewed the following items francisco (where applicable) has been applied. Labs Laboratory Tests Test 06/19/18 12:34 06/19/18 17:11 06/19/18 20:38 06/20/18 07:07 Glucose (Fingerstick) 150 mg/dL (70-99) 129 mg/dL (70-99) 183 mg/dL (70-99) 156 mg/dL (70-99) Test 06/20/18 12:01 06/20/18 16:49 06/20/18 19:42 06/21/18 07:31 Glucose (Fingerstick) 105 mg/dL (70-99) 135 mg/dL (70-99) 226 mg/dL (70-99) 130 mg/dL (70-99) Laboratory Tests Test 06/20/18 12:01 06/20/18 16:49 06/20/18 19:42 06/21/18 07:31 Glucose (Fingerstick) 105 mg/dL (70-99) 135 mg/dL (70-99) 226 mg/dL (70-99) 130 mg/dL (70-99) Microbiology 06/18/18 Urine Culture - Preliminary, Resulted 06/18/18 Urine Culture Result 1 (JOHN) - Preliminary, Resulted Medications Current Medications Ondansetron HCl (Zofran) 4 mg 1X ONCE IV Last administered on 06/18/18at 11:18 ; Start 06/18/18 at 11:00; Stop 06/18/18 at 11:01; Status DC Fentanyl Citrate (Fentanyl 2ml Vial) 50 mcg 1X ONCE IV Last administered on at 11:18; Start 06/18/18 at 11:00; Stop 06/18/18 at 11:01; Status DC Info (Review Meds) 1 ea PRN 1X PRN MC SEE COMMENTS; Start 06/18/18 at 11:15 Sodium Chloride (Normal Saline Flush) 3 ml QSHIFT PRN IV AFTER MEDS AND BLOOD DRAWS; Start 06/18/18 at 11:15 Sodium Chloride 1,000 ml @ 100 mls/hr Q10H IV Last administered on 06/19/18at 07:00; Start 06/18/18 at 11:07; Stop 06/19/18 at 12:14; Status DC Acetaminophen (Tylenol Supp) 650 mg PRN Q6HRS PRN [place] FEVER > 100.5'F; Start at 11:15 Labetalol HCl (Normodyne Iv Push) 10 mg PRN Q10MIN PRN IVP HTN, SEE COMMENTS, 1st Choice; Start 06/18/18 at 11:15 Hydralazine HCl (Apresoline Inj) 10 mg PRN Q10MIN PRN IVP HYPERTENSION, SEE COMMENTS; Start 06/18/18 at 11:15 Nicardipine HCl 50 mg/Sodium Chloride 250 ml @ 25 mls/hr CONT PRN IV HYPERTENSION, SEE COMMENTS Last administered on 06/18/18at 11:54; Start 06/18/18 at 11:15; Stop 06/20/18 at 16:03; Status DC Ondansetron HCl (Zofran) 4 mg PRN Q6HRS PRN IV NAUSEA/VOMITING; Start 06/18/18 at 11:15 Iohexol (Omnipaque 300 Mg/ml) 75 ml 1X ONCE IV Last administered on 06/18/18at 12:11; Start 06/18/18 at 11:45; Stop 06/18/18 at 11:46; Status DC Info (CONTRAST GIVEN -- Rx MONITORING) 1 each PRN DAILY PRN MC SEE COMMENTS; Start 06/18/18 at 11:45; Stop 06/19/18 at 07:48; Status DC Iohexol (Omnipaque 300 Mg/ml) 75 ml 1X ONCE IV ; Start 06/18/18 at 12:00; Stop 06/18/18 at 12:03; Status DC Info (CONTRAST GIVEN -- Rx MONITORING) 1 each PRN DAILY PRN MC SEE COMMENTS; Start 06/18/18 at 12:15; Stop 06/20/18 at 12:14; Status DC Cetirizine HCl (ZyrTEC) 10 mg PRN DAILY PRN PO Allergy Symptoms Last administered on 06/19/18at 09:49; Start 06/18/18 at 16:45 Levothyroxine Sodium (Synthroid) 175 mcg DAILY07 PO Last administered on at 06:03; Start 06/19/18 at 07:00 Lisinopril (Prinivil) 20 mg DAILY PO Last administered on 06/21/18at 08:57; Start 06/19/18 at 09:00 Vitamin D (Vitamin D3) 1,000 unit DAILY PO Last administered on 06/21/18at 08:56 ; Start 06/19/18 at 09:00 Citalopram Hydrobromide (CeleXA) 40 mg DAILY PO ; Start 06/19/18 at 09:00; Stop 06/19/18 at 11:04; Status DC Multivitamins (Thera M Plus) 1 tab DAILY PO Last administered on 06/21/18at 08: 57; Start 06/19/18 at 09:00 Pantoprazole Sodium (Protonix) 40 mg DAILYAC PO Last administered on 4/19/19at 08:58; Start 06/19/18 at 07:30 Propranolol HCl (Inderal La) 120 mg HS PO ; Start 06/18/18 at 21:00; Stop at 21:00; Status DC Ropinirole HCl (Requip) 2 mg DAILY PO ; Start 06/19/18 at 09:00; Stop 06/19/18 at 09:00; Status DC Simvastatin (Zocor) 20 mg HS PO Last administered on 06/20/18at 20:32; Start at 21:00 Linagliptin (Tradjenta) 5 mg DAILY PO Last administered on 06/21/18 08:56; Start 06/19/18 at 09:00 Insulin Human Lispro (HumaLOG) 0-5 UNITS TIDWMEALS SQ ; Start 06/18/18 at 17:00 Dextrose (Dextrose 50%-Water Syringe) 12.5 gm PRN Q15MIN PRN IV SEE COMMENTS; Start 06/18/18 at 16:45 Acetaminophen/ Hydrocodone Bitart (Lortab 5/325) 1 tab PRN Q6HRS PRN PO PAIN Last administered on 06/21/18 06:04; Start 06/18/18 at 18:00 Propranolol HCl (Inderal) 40 mg BID PO Last administered on 06/21/18 08:58; Start 06/18/18 at 21:00 Ropinirole HCl (Requip) 2 mg HS PO Last administered on 06/20/18at 20:32; Start 06/18/18 at 21:00 Ropinirole HCl (Requip) 1 mg DAILY PO Last administered on 06/21/18 08:57; Start 06/19/18 at 09:00 Duloxetine HCl (Cymbalta) 120 mg DAILY PO Last administered on 06/21/18 08:56 ; Start 06/19/18 at 11:00 Morphine Sulfate (Morphine Sulfate) 4 mg PRN Q4HRS PRN IV PAIN MILD Last administered on 06/20/18 21:12; Start 06/20/18 at 21:00 Sennosides (Senna) 17.2 mg 1X ONCE PO Last administered on 06/21/18 08:59; Start 06/21/18 at 08:00; Stop 06/21/18 at 08:01; Status DC Polyethylene Glycol (miraLAX PACKET) 17 gm 1X ONCE PO ; Start 06/21/18 at 08:00 ; Stop 06/21/18 at 08:01; Status DC Magnesium Citrate (Citroma) 296 ml 1X ONCE PO ; Start 06/21/18 at 08:00; Stop 06/21/18 at 08:01; Status DC Active Scripts Active Reported Gabapentin 100 Mg Capsule 100 Mg PO TID PRN PRN Requip (Ropinirole Hcl) 0.5 Mg Tablet 2 Mg PO DAILY Propranolol Hcl 40 Mg Tablet 1 Tab PO BID Cymbalta (Duloxetine Hcl) 60 Mg Capsule.dr 2 Cap PO DAILY Protonix (Pantoprazole Sodium) 20 Mg Tablet.dr 20 Mg PO DAILY Januvia (Sitagliptin Phosphate) 25 Mg Tablet 50 Mg PO DAILY Metformin Hcl 1,000 Mg Tablet 1,000 Mg PO BIDWMEALS Cetirizine Hcl 10 Mg Tablet 1 Tab PO BID PRN Vitamin D-3 (Cholecalciferol (Vitamin D3)) 2,000 Unit Capsule 1,000 Unit PO DAILY Multi-Vitamin Daily (Multivitamin) 1 Each Tablet 1 Each PO DAILY Simvastatin 20 Mg Tablet 1 Tab PO QHS Requip (Ropinirole Hcl) 1 Mg Tablet 4 Tab PO HS Lisinopril 20 Mg Tablet 1 Tab PO DAILY Levothyroxine Sodium 175 Mcg Tablet 1 Tab PO DAILY Vitals/I & O Vital Sign - Last 24 Hours 06/20/18 06/20/18 06/20/18 06/20/18 10:51 15:00 18:13 19:10 Temp 98.8 98.3 97.6 98.8 98.3 97.6 Pulse 77 64 64 Resp 17 20 19 20 B/P (MAP) 131/62 (85) 138/72 (94) 112/49 (70) Pulse Ox 97 93 93 99 O2 Delivery Room Air Room Air Room Air Room Air 06/20/18 06/20/18 06/20/18 06/20/18 20:00 20:32 21:12 21:42 Pulse 64 B/P (MAP) 112/49 O2 Delivery Room Air Room Air Room Air 06/20/18 06/21/18 06/21/18 06/21/18 23:27 03:09 06:04 07:00 Temp 98.0 98.1 97.6 98.0 98.1 97.6 Pulse 55 55 61 Resp 18 18 17 B/P (MAP) 104/53 (70) 136/68 (90) 134/62 (86) Pulse Ox 98 96 96 O2 Delivery Room Air Room Air Room Air Room Air 06/21/18 06/21/18 06/21/18 07:05 08:57 08:58 Pulse 61 61 Resp 18 B/P (MAP) 134/62 134/62 Pulse Ox 96 O2 Delivery Room Air Intake and Output 06/20/18 06/20/18 06/21/18 15:00 23:00 07:00 Intake Total 480 ml 300 ml 0 ml Balance 480 ml 300 ml 0 ml ISAIAS REDDY MD Jun 21, 2018 09:46
[2018-06-21 10:53] VITALS: BP 111/41
--- NOTE | 2018-06-21 11:30 | NUR ---
This nurse checked the patient's orthostatic BP at 0940. Readings were supine BP 105/49 HR 59, sitting BP 106/54 HR 57, and standing BP was 77/47 HR 65.The patient reported dizziness upon standing up. Dr. Marinelli who was rounding the unit was informed of the patient's BP results. Order received to consult cardiology.
--- NOTE | 2018-06-21 12:36 | PDOC2 ---
ASNDI EDWARDS HOTEL NIGHT AUDITOR 06/21/18 1235: CARDIAC CONSULT DATE OF CONSULT Date of Consult DATE: 06/21/18 TIME: 12:21 REASON FOR CONSULT Reason for Consult: orthostatic hypotension REFERRING PHYSICIAN Referring Physician: Dr. Marinelli SOURCE Source: Chart review, Patient HISTORY OF PRESENT ILLNESS HISTORY OF PRESENT ILLNESS This is a 62 yo female, with a history of syncope followed by neurology services , who presented secondary to BLANCO and confusion. Had syncopal episode Sunday morning. Reports she feel and hit the back or her head, but is unable to recall these events. Only knew she fell because as she was having neck, back, and shoulder pain, along with a bump on the back of her head. Went to work, coworkers noted that she was a little different and seemed confused. Encouraged her to go to the ED. [facility] fo the head was reportedly negative along with multiple x-rays. The following morning, speech was slurred, had difficulty with thought and with reading. Had BLANCO and confusion. Decided to go to the ED for further evaluation and treatment. CT upon arrival notable for left temporal lobe hemorrhage and mild hemorrhage in left choroid plexus. Was noted with orthostatic hypotension this morning (lying 105/49, sitting 106/54, and standing 77/47), which prompted this consult. Patient reports having 4 episode of syncope over the last 4 years. Was seen by our service in 2015 for evaluation of syncope. Underwent stress test and echocardiogram, which did reveal any acute abnormalities. Had event monitor, which did not show any significant arrhythmias. Each syncopal episode has been a little different. Initially episode occurred when she was driving, another time she fell in the bathroom. Events leading up to this episode unclear as she cannot even recall falling whatsoever. PAST MEDICAL HISTORY Cardiovascular: HTN, Syncope, Hyperlipidemia Pulmonary: Other (YUKI) GI: No pertinent hx Heme/Onc: No pertinent hx Hepatobiliary: No pertinent hx Psych: Anxiety, Depression Musculoskeletal: Osteoarthritis Rheumatologic: No pertinent hx Infectious disease: No pertinent hx ENT: No pertinent hx Renal/: No pertinent hx Endocrine: Diabetes, Hypothyroidism Dermatology: No pertinent hx PAST SURGICAL HISTORY Past Surgical History: Other (gastric bypass) FAMILY HISTORY Family History: Hypertension SOCIAL HISTORY Smoke: No ALCOHOL: none Drugs: None Lives: with Family CURRENT MEDICATIONS CURRENT MEDICATIONS Current Medications Medications (Trade) Dose Ordered Sig/Akua Route PRN Reason Start Time Stop Time Status Last Admin Dose Admin Morphine Sulfate (Morphine Sulfate) 4 mg PRN Q4HRS PRN IV PAIN MILD 06/20/18 21:00 06/20/18 21:12 Sennosides (Senna) 17.2 mg 1X ONCE PO 06/21/18 08:00 06/21/18 08:01 DC 06/21/18 08:59 ALLERGIES ALLERGIES: Coded Allergies: No Known Drug Allergies (Unverified , 05/11/14) ROS Review of System 14 point ROS conducted with pertinent positives noted above in HPI PHYSICAL EXAM General: Alert, Oriented X3, Cooperative, No acute distress HEENT: Atraumatic, Mucous membr. moist/pink Lungs: Clear to auscultation, Normal air movement Heart: Regular rate, Normal S1, Normal S2 Abdomen: Soft, No tenderness Extremities: No edema, Normal pulses Skin: No significant lesion Neuro: Normal speech, Sensation intact Psych/Mental Status: Mental status NL, Mood NL MUSCULOSKELETAL: Osteoarthritic changes both hands VITALS VITALS Vital Signs Date Time Temp Pulse Resp B/P (MAP) Pulse Ox O2 Delivery O2 Flow Rate FiO2 06/21/18 10:53 98.1 60 16 111/41 (64) 98 Room Air 98.1 06/20/18 08:00 2.0 LABS Lab: Laboratory Tests Test 06/20/18 16:49 06/20/18 19:42 06/21/18 07:31 06/21/18 10:21 Glucose (Fingerstick) 135 mg/dL (70-99) 226 mg/dL (70-99) 130 mg/dL (70-99) 258 mg/dL (70-99) ECHOCARDIOGRAM ECHOCARDIOGRAM <Conclusion> The left ventricle is normal size. The left ventricular systolic function is normal and the ejection fraction is within normal range. The Ejection Fraction is 55-60%. There is no significant aortic valvular stenosis. Doppler and Color Flow revealed trace aortic regurgitation. Doppler and Color Flow revealed no mitral valve regurgitation noted. Doppler and Color Flow revealed trace tricuspid regurgitation. The PA pressure was estimated at 28 mmHg. Doppler and Color Flow revealed mild pulmonic valvular regurgitation. There is no evidence of significant pericardial effusion. DATE: 05/13/14 1254 STRESS TEST STRESS TEST Conclusion 1. Regadenoson cardioisotope stress test did not show any evidence of ischemia or infarct. 2. Normal left ventricular systolic function with ejection fraction calculated at 65%. 3. Low risk for cardiovascular events. DATE: 06/19/14 1119 ASSESSMENT/PLAN ASSESSMENT/PLAN 1. ICA; CT notable for left temporal lobe hemorrhage and mild hemorrhage in left choroid plexus. As per neuro 2. Syncope, recurrent. Event monitor in 2014 without significant arrhythmia. Reports 4 syncopal episodes since 2015. 3. Orthostatic hypotension; BP drop from 106/54 sitting to 77/47 standing. When orthos check with pause between position changes, no significant orthostasis noted 4. Hypertension; controlled 5. Hyperlipidemia; statin 6. Diabetes, II; as per PCP 7. YKUI; getting set up with home CPAP Recommendations Echo to assess LV systolic function Compression stocking Change positions slowly Allow baseline BP to be slightly higher Given recurrent syncope, consider loop recorder implant as an outpatient to r/o contributing arrhythmias. SHAN ZUNIGA MD 06/21/18 1824: CARDIAC CONSULT ASSESSMENT/PLAN ASSESSMENT/PLAN Patient seen and examined. Agree with HAND BLOCKER's assessment and plan. Patient with recurrent syncope Tele did not show any significant arrhythmias Continue w/u and management of ICH per neurology team Check 2D echo to assess LVf Agree with loop recorder as outpatient Thank you for your consultation SANDI EDWARDS APRN Jun 21, 2018 12:35 SHAN ZUNIGA MD Jun 21, 2018 18:24
[2018-06-21] MEDS: AMOXICILLIN/K CLAV 875/125MG TABLET. PO SCH ×2 (14:15→20:14)
[2018-06-21 15:00] VITALS: BP 146/58
--- NOTE | 2018-06-21 16:10 | NUR ---
Noted patient has Augmentin for UTI. The patient denies any urinary symptoms. Paged Dr. Marinelli at [phone], reviewed urinalysis results with him. No new orders received, MD will reevaluate patient tomorrow.
--- NOTE | 2018-06-21 16:18 | NUR ---
SW consulted for OP speech therapy. An actual rx is needed to set up OP ST. Discussed that it can be scheduled with OP ST at [facility] or with pt's preferred provider. RN aware to get Rx.
[2018-06-21 19:52] VITALS: BP 154/70
[2018-06-21] MEDS: SIMVASTATIN 20 MG TABLET PO SCH (20:13)
[2018-06-21 23:36] VITALS: BP 105/63
[2018-06-22 03:10] VITALS: BP 142/71
[2018-06-22] MEDS: LEVOTHYROXINE 175 MCG TABLET PO SCH (06:13)
[2018-06-22 07:00] VITALS: BP 128/47
[2018-06-22] MEDS: INSULIN LISPRO 300 UNITS/3 ML INSULN.PEN. SQ SCH ×3 (08:00→17:00)
[2018-06-22] MEDS: AMOXICILLIN/K CLAV 875/125MG TABLET. PO SCH ×2 (09:09→21:00)
[2018-06-22] MEDS: rOPINIRole 1 MG TABLET. PO SCH ×2 (09:09→21:00)
[2018-06-22] MEDS: PANTOPRAZOLE 40 MG TABLET.DR. PO SCH (09:09)
[2018-06-22] MEDS: LINAGLIPTIN 5 MG TABLET PO SCH (09:09)
[2018-06-22] MEDS: CHOLECALCIFEROL (VITAMIN D3) 1,000 UNIT TABLET PO SCH (09:09)
[2018-06-22] MEDS: PROPRANOLOL 40 MG TABLET. PO SCH ×2 (09:10→21:01)
[2018-06-22] MEDS: LISINOPRIL 20 MG TABLET PO SCH (09:11)
[2018-06-22] MEDS: MULTIVITAMIN with MINERAL TABLET. PO SCH (09:11)
[2018-06-22] MEDS: DULoxetine HCL 30 MG CAPSULE.DR PO SCH (09:55)
[2018-06-22 11:00] VITALS: BP 129/55
--- NOTE | 2018-06-22 11:57 | PDOC ---
PROGRESS NOTES Chief Complaint Chief Complaint A/P: mild-moderate expressive aphasia w/ noted impairment in word-finding (confrontational and divergent) 06/21 Fall - scalp hematoma and left temporal hemorrhage 3.1 cm by 2.1 cm posterior left temporal lobe hemorrhage and mild hemorrhage in left choroid plexus - , difficult to say if this is traumatic or CVA. Will consult neurology. Now at some risk of seizure, no hx of seizures Headache - likely 2/2 intracranial hemorrhage History of syncope - seen by Dr. Monreal previously, narcolepsy/cataplexy Anxiety - cont home meds Depression - cont home meds Diabetes-Type II - sliding scale basal bolus in hour High Cholesterol - needs high intensity statin Hypertension - will manage in ICU Hypothyroid s/p radioactive iodine ablation - on 175mcg replacement therapy, continue RLS - cont meds if ok with neuro YUKI on CPAP - will not initiate based on intracranial hemorrhage ORTHOSTATIC BP NOTED, HIGH FALL RISK FEN - Ok for ADA diet PPX - SCDs FULL CODE admission for intracranial hemorrhage, at least 2 midnights CONSULT CARDIOLOGY High risk of recurrent bleeding, leadite man, FALLS NEEDS OUT PT SPEECH PATHOLOGY ? WALKER WILL NEED LOOP RECORDER OUTPT 45 MIN PT EXAM, CHART REVIEW, > 50% OF TIME SPENT WITH EXAM, CHART REVIEW, PT CARE COORDINATION History of Present Illness History of Present Illness Ms Stearns is a 62yo F w/ PMHx Anxiety, Depression, Diabetes-Type II, High Cholesterol, Hypertension, Hypothyroid s/p radioactive iodine ablation, RLS, Syncope, narcolepsy/cataplexy, YUKI on CPAP (about to start using), Obesity s/p gastric bypass who present to ED with progressive confusion and word finding difficulty after a fall @ 7am 06/17/18. She has had a headache for the past 2-3 days as well prior to this. Was seen in [facility] ED after her co-workers noted she was acting strangely yesterday after her fall. She had a negative head CT at the time and was sent home. She is aware of her word finding deficit and finds it frustrating. had headache and was feeling strange this with word finding difficulty and confusion noted by her significant other. Head CT in our ED showed a hemorrhage in the left temporal lobe 3x2cm approximately. CTA negative for occlusion or aneurysm. MRI equivocal for infarct with hemorrhagic conversion vs hematoma. Seen by neuro, Plan: neurology following bp control 43 min pt exam, chart review, > 50% of time with exam, chart review, pt care coordination Vitals Vitals Vital Signs Date Time Temp Pulse Resp B/P (MAP) Pulse Ox O2 Delivery O2 Flow Rate FiO2 06/22/18 09:11 59 128/47 06/22/18 08:00 Room Air 2.0 06/22/18 07:00 97.9 18 100 97.9 Physical Exam General: Alert, Oriented X3, Cooperative, No acute distress Heart: Regular rate, Normal S1, Normal S2 Lungs: Clear Abdomen: Soft, No tenderness Extremities: No edema, Normal pulses Skin: No significant lesion Labs LABS Laboratory Tests Test 06/21/18 16:33 06/21/18 20:34 06/22/18 07:54 06/22/18 11:26 Glucose (Fingerstick) 119 mg/dL (70-99) 194 mg/dL (70-99) 155 mg/dL (70-99) 159 mg/dL (70-99) Assessment and Plan Assessmemt and Plan Problems Medical Problems: (1) Confusion Status: Acute (2) Intracranial hemorrhage following injury Status: Acute Pain Location * dorsum left foot PT PAIN COMMENTS * Increased pain with palpation and weight bearing. Some increased pain with end-range plantarflexion and inversion left foot. spouse and pt state started a few weeks ago. I recommended follow-up with primary for this foot pain and for drop in BP when standing. Supine to Sit Assistance Required * Independent Sit to Supine Assistance Required * Independent Transfer Assistance Required * Independent Transfer Type * Stand-Step Transfer Assistive Device * No Device Ambulation Assistance Required * Independent Ambulation Assistive Device * No Device Ambulation Distance * 250 Ft Ambulation Comments * antalgic gait left foot pain. no loss of balance even when standing 4 min, turning, backing, and up and down steps with reciprical gait with rail. Stairs Assistance Required * Independent Number of Stairs * 2-4 Stairs Assistive Device * Rail on Left Pt/caregiver agrees with plan of care/goals * Yes Patient condition at conclusion of therapy * Pt in chair * Call light in reach * Phone in reach * PtIn no apparent distress * Pt denies further needs * Visitor with patient Goal 1 - Bed Mobility Assistance Required * Independent Goal 2 - Transfers Assistance Required * Independent Goal 2 - Transfer Type * Stand-Step Goal 2 Assessment * Goal Met Goal 3 - Ambulation Assistance Required * Independent Goal 3 - Ambulation Distance * 250' Goal 3 - Ambulation Device * No Device Goal 3 Assessment * Goal Met Goal 4 - Stairs Assistance Required * Independent Goal 4 - Number of Stairs * 2-4 Goal 4 - Device on Stairs * Rail on Right Goal 4 Assessment * Goal Met No Further Skilled P.T. Intervention Required * Goals Met Discharge Recommendations * Home independent Discharge Recommendation - DME * None Comment Review of Relevant I have reviewed the following items francisco (where applicable) has been applied. Labs Laboratory Tests Test 06/20/18 12:01 06/20/18 16:49 06/20/18 19:42 06/21/18 07:31 Glucose (Fingerstick) 105 mg/dL (70-99) 135 mg/dL (70-99) 226 mg/dL (70-99) 130 mg/dL (70-99) Test 06/21/18 10:21 06/21/18 16:33 06/21/18 20:34 06/22/18 07:54 Glucose (Fingerstick) 258 mg/dL (70-99) 119 mg/dL (70-99) 194 mg/dL (70-99) 155 mg/dL (70-99) Test 06/22/18 11:26 Glucose (Fingerstick) 159 mg/dL (70-99) Laboratory Tests Test 06/21/18 16:33 06/21/18 20:34 06/22/18 07:54 06/22/18 11:26 Glucose (Fingerstick) 119 mg/dL (70-99) 194 mg/dL (70-99) 155 mg/dL (70-99) 159 mg/dL (70-99) Microbiology 06/18/18 Urine Culture - Final, Complete 06/18/18 Urine Culture Result 1 (JOHN) - Final, Complete 06/18/18 Antimicrobic Susceptibility - Final, Complete Medications Current Medications Ondansetron HCl (Zofran) 4 mg 1X ONCE IV Last administered on 06/18/18at 11:18 ; Start 06/18/18 at 11:00; Stop 06/18/18 at 11:01; Status DC Fentanyl Citrate (Fentanyl 2ml Vial) 50 mcg 1X ONCE IV Last administered on at 11:18; Start 06/18/18 at 11:00; Stop 06/18/18 at 11:01; Status DC Info (Review Meds) 1 ea PRN 1X PRN MC SEE COMMENTS; Start 06/18/18 at 11:15 Sodium Chloride (Normal Saline Flush) 3 ml QSHIFT PRN IV AFTER MEDS AND BLOOD DRAWS; Start 06/18/18 at 11:15 Sodium Chloride 1,000 ml @ 100 mls/hr Q10H IV Last administered on 06/19/18at 07:00; Start 06/18/18 at 11:07; Stop 06/19/18 at 12:14; Status DC Acetaminophen (Tylenol Supp) 650 mg PRN Q6HRS PRN PA FEVER > 100.5'F; Start at 11:15 Labetalol HCl (Normodyne Iv Push) 10 mg PRN Q10MIN PRN IVP HTN, SEE COMMENTS, 1st Choice; Start 06/18/18 at 11:15 Hydralazine HCl (Apresoline Inj) 10 mg PRN Q10MIN PRN IVP HYPERTENSION, SEE COMMENTS; Start 06/18/18 at 11:15 Nicardipine HCl 50 mg/Sodium Chloride 250 ml @ 25 mls/hr CONT PRN IV HYPERTENSION, SEE COMMENTS Last administered on 06/18/18at 11:54; Start 06/18/18 at 11:15; Stop 06/20/18 at 16:03; Status DC Ondansetron HCl (Zofran) 4 mg PRN Q6HRS PRN IV NAUSEA/VOMITING; Start 06/18/18 at 11:15 Iohexol (Omnipaque 300 Mg/ml) 75 ml 1X ONCE IV Last administered on 06/18/18at 12:11; Start 06/18/18 at 11:45; Stop 06/18/18 at 11:46; Status DC Info (CONTRAST GIVEN -- Rx MONITORING) 1 each PRN DAILY PRN MC SEE COMMENTS; Start 06/18/18 at 11:45; Stop 06/19/18 at 07:48; Status DC Iohexol (Omnipaque 300 Mg/ml) 75 ml 1X ONCE IV ; Start 06/18/18 at 12:00; Stop 06/18/18 at 12:03; Status DC Info (CONTRAST GIVEN -- Rx MONITORING) 1 each PRN DAILY PRN MC SEE COMMENTS; Start 06/18/18 at 12:15; Stop 06/20/18 at 12:14; Status DC Cetirizine HCl (ZyrTEC) 10 mg PRN DAILY PRN PO Allergy Symptoms Last administered on 06/19/18at 09:49; Start 06/18/18 at 16:45 Levothyroxine Sodium (Synthroid) 175 mcg DAILY07 PO Last administered on at 06:13; Start 06/19/18 at 07:00 Lisinopril (Prinivil) 20 mg DAILY PO Last administered on 06/22/18at 09:11; Start 06/19/18 at 09:00 Vitamin D (Vitamin D3) 1,000 unit DAILY PO Last administered on 06/22/18at 09:09 ; Start 06/19/18 at 09:00 Citalopram Hydrobromide (CeleXA) 40 mg DAILY PO ; Start 06/19/18 at 09:00; Stop 06/19/18 at 11:04; Status DC Multivitamins (Thera M Plus) 1 tab DAILY PO Last administered on 06/22/18at 09: 11; Start 06/19/18 at 09:00 Pantoprazole Sodium (Protonix) 40 mg DAILYAC PO Last administered on 06/22/18at 09:09; Start 06/19/18 at 07:30 Propranolol HCl (Inderal La) 120 mg HS PO ; Start 06/18/18 at 21:00; Stop at 21:00; Status DC Ropinirole HCl (Requip) 2 mg DAILY PO ; Start 06/19/18 at 09:00; Stop 06/19/18 at 09:00; Status DC Simvastatin (Zocor) 20 mg HS PO Last administered on 06/21/18at 20:13; Start at 21:00 Linagliptin (Tradjenta) 5 mg DAILY PO Last administered on 06/22/18at 09:09; Start 06/19/18 at 09:00 Insulin Human Lispro (HumaLOG) 0-5 UNITS TIDWMEALS SQ Last administered on 06/21at 12:37; Start 06/18/18 at 17:00 Dextrose (Dextrose 50%-Water Syringe) 12.5 gm PRN Q15MIN PRN IV SEE COMMENTS; Start 06/18/18 at 16:45 Acetaminophen/ Hydrocodone Bitart (Lortab 5/325) 1 tab PRN Q6HRS PRN PO PAIN Last administered on 06/21/18 20:13; Start 06/18/18 at 18:00 Propranolol HCl (Inderal) 40 mg BID PO Last administered on 06/22/18 09:10; Start 06/18/18 at 21:00 Ropinirole HCl (Requip) 2 mg HS PO Last administered on 06/21/18 20:12; Start 06/18/18 at 21:00 Ropinirole HCl (Requip) 1 mg DAILY PO Last administered on 06/22/18 09:09; Start 06/19/18 at 09:00 Duloxetine HCl (Cymbalta) 120 mg DAILY PO Last administered on 06/22/18 09:55 ; Start 06/19/18 at 11:00 Morphine Sulfate (Morphine Sulfate) 4 mg PRN Q4HRS PRN IV PAIN MILD Last administered on 06/20/18at 21:12; Start 06/20/18 at 21:00 Sennosides (Senna) 17.2 mg 1X ONCE PO Last administered on 06/21/18 08:59; Start 06/21/18 at 08:00; Stop 06/21/18 at 08:01; Status DC Polyethylene Glycol (miraLAX PACKET) 17 gm 1X ONCE PO Last administered on 15:25; Start 06/21/18 at 08:00; Stop 06/21/18 at 08:01; Status DC Magnesium Citrate (Citroma) 296 ml 1X ONCE PO ; Start 06/21/18 at 08:00; Stop 06/21/18 at 08:01; Status DC Amoxicillin/ Clavulanate Potassium (Augmentin 875/ 125mg) 1 tab BID PO Last administered on 06/22/18 09:09; Start 06/21/18 at 14:15 Active Scripts Active Reported Gabapentin 100 Mg Capsule 100 Mg PO TID PRN PRN Requip (Ropinirole Hcl) 0.5 Mg Tablet 2 Mg PO DAILY Propranolol Hcl 40 Mg Tablet 1 Tab PO BID Cymbalta (Duloxetine Hcl) 60 Mg Capsule.dr 2 Cap PO DAILY Protonix (Pantoprazole Sodium) 20 Mg Tablet.dr 20 Mg PO DAILY Januvia (Sitagliptin Phosphate) 25 Mg Tablet 50 Mg PO DAILY Metformin Hcl 1,000 Mg Tablet 1,000 Mg PO BIDWMEALS Cetirizine Hcl 10 Mg Tablet 1 Tab PO BID PRN Vitamin D-3 (Cholecalciferol (Vitamin D3)) 2,000 Unit Capsule 1,000 Unit PO DAILY Multi-Vitamin Daily (Multivitamin) 1 Each Tablet 1 Each PO DAILY Simvastatin 20 Mg Tablet 1 Tab PO QHS Requip (Ropinirole Hcl) 1 Mg Tablet 4 Tab PO HS Lisinopril 20 Mg Tablet 1 Tab PO DAILY Levothyroxine Sodium 175 Mcg Tablet 1 Tab PO DAILY Vitals/I & O Vital Sign - Last 24 Hours 06/21/18 06/21/18 06/21/18 06/21/18 15:00 19:52 20:00 20:13 Temp 98.3 98.0 98.3 98.0 Pulse 61 77 Resp 17 20 B/P (MAP) 146/58 (87) 154/70 (98) Pulse Ox 99 96 O2 Delivery Room Air Room Air Room Air Room Air 06/21/18 06/21/18 06/21/18 06/22/18 20:18 21:13 23:36 03:10 Temp 98.3 98.1 98.3 98.1 Pulse 77 75 60 Resp 20 18 B/P (MAP) 154/70 105/63 (77) 142/71 (94) Pulse Ox 96 99 O2 Delivery Room Air Room Air Room Air 06/22/18 06/22/18 06/22/18 06/22/18 07:00 08:00 09:10 09:11 Temp 97.9 97.9 Pulse 59 59 59 Resp 18 B/P (MAP) 128/47 (74) 128/47 128/47 Pulse Ox 100 O2 Delivery Room Air Room Air O2 Flow Rate 2.0 Intake and Output 06/21/18 06/21/18 06/22/18 15:00 23:00 07:00 Intake Total 720 ml 560 ml 150 ml Balance 720 ml 560 ml 150 ml ANTONIETA MURRY MD Jun 22, 2018 11:57
[2018-06-22 15:00] VITALS: BP 161/71
--- NOTE | 2018-06-22 16:25 | PDOC ---
PROGRESS NOTES Assessment Assessment IMPRESSION: Left temporal hemorrhage with vasogenic edema. Fall. Syncopal spell, recurrent. DM. UTI. HTN. HLD. Obesity. RECOMMENDATIONS/PLAN: Avoid antiplatelets and anticoagulant at the present time. Treat medical diseases. Consulted Cardiology. Pain control. Discussed with her at bedside on 06/22/18. 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 Full 14-point review of systems is negative. MEDICATIONS: Refer to [facility] PHYSICAL EXAMINATION: General appearance in subacute distress. HEENT: Normocephalic and nontraumatic. Eyes, nose, ears, and throat are unremarkable. Neck is supple. No lymphadenopathy. No bruits are heard over the carotid artery. No Crepitus. Cardiovascular: S1, S2, regular rate and rhythm. Pulmonary: Clear to auscultation bilaterally. Abdomen: Bowel sounds are positive. Abdomen is soft, nontender, and nondistended. Extremities: No rash, lesions, or edema. No restriction of range of motion NEUROLOGICAL EXAMINATION: Alert. Oriented to time, place and person. PERRL. EOMI. CN: no focal findings. Muscle tone: within normal. Muscle strength: 5 DTR: 2 Plantar reflex: Flexor response bilaterally Gait: At baseline normal. Sensory exam: no abnormal findings. No cerebellar signs elicited. F-T-N test accurate. Objective Objective Vital Signs Date Time Temp Pulse Resp B/P (MAP) Pulse Ox O2 Delivery O2 Flow Rate FiO2 06/22/18 11:00 98.4 56 18 129/55 (79) 100 Room Air 98.4 06/22/18 08:00 2.0 Intake and Output 06/22/18 07:00 Intake Total 1430 ml Balance 1430 ml Intake Oral 1430 ml # Voids 5 Vitals Signs Vitals VS - Last 72 Hours, by Label Date Time Temp Pulse Resp B/P (MAP) Pulse Ox O2 Delivery O2 Flow Rate FiO2 06/22/18 11:00 98.4 56 18 129/55 (79) 100 Room Air 98.4 06/22/18 09:11 59 128/47 06/22/18 09:10 59 128/47 06/22/18 08:00 Room Air 2.0 06/22/18 07:00 97.9 59 18 128/47 (74) 100 Room Air 97.9 06/22/18 03:10 98.1 60 18 142/71 (94) 99 Room Air 98.1 06/21/18 23:36 98.3 75 20 105/63 (77) 96 Room Air 98.3 06/21/18 21:13 Room Air 06/21/18 20:18 77 154/70 06/21/18 20:13 Room Air 06/21/18 20:00 Room Air 06/21/18 19:52 98.0 77 20 154/70 (98) 96 Room Air 98.0 06/21/18 15:00 98.3 61 17 146/58 (87) 99 Room Air 98.3 06/21/18 10:53 98.1 60 16 111/41 (64) 98 Room Air 98.1 06/21/18 08:58 61 134/62 06/21/18 08:57 61 134/62 06/21/18 08:00 Room Air 06/21/18 07:05 18 96 06/21/18 07:00 97.6 61 17 134/62 (86) 96 Room Air 97.6 Laboratory Laboratory Laboratory Tests Test 06/21/18 16:33 06/21/18 20:34 06/22/18 07:54 06/22/18 11:26 Glucose (Fingerstick) 119 mg/dL (70-99) 194 mg/dL (70-99) 155 mg/dL (70-99) 159 mg/dL (70-99) Microbiology 06/18/18 Urine Culture - Final, Complete 06/18/18 Urine Culture Result 1 (JOHN) - Final, Complete 06/18/18 Antimicrobic Susceptibility - Final, Complete Medication Medications Current Medications Lactobacillus Rhamnosus (Culturelle) 1 cap BID PO ; Start 06/22/18 at 21:00 Comment Review of Relevant I have reviewed the following items francisco (where applicable) has been applied. KAITLIN BARRAZA MD Jun 22, 2018 16:25
[2018-06-22 19:00] VITALS: BP 130/65
[2018-06-22] MEDS: SIMVASTATIN 20 MG TABLET PO SCH (21:00)
[2018-06-22] MEDS: LACTOBACILLUS RHAMNOSUS GG 1 CAPSULE. PO SCH (21:00)
[2018-06-22 23:00] VITALS: BP 109/52
[2018-06-23 03:00] VITALS: BP 160/62
[2018-06-23] MEDS: HYDROcodone/APAP 5/325MG 1 TAB TABLET PO PRN (03:56)
[2018-06-23 07:00] VITALS: BP 162/75
[2018-06-23] MEDS: LEVOTHYROXINE 175 MCG TABLET PO SCH (07:00)
[2018-06-23] MEDS: PANTOPRAZOLE 40 MG TABLET.DR. PO SCH (08:52)
[2018-06-23] MEDS: LACTOBACILLUS RHAMNOSUS GG 1 CAPSULE. PO SCH ×2 (08:52→20:52)
[2018-06-23] MEDS: CHOLECALCIFEROL (VITAMIN D3) 1,000 UNIT TABLET PO SCH (08:53)
[2018-06-23] MEDS: LISINOPRIL 20 MG TABLET PO SCH (08:53)
[2018-06-23] MEDS: DULoxetine HCL 30 MG CAPSULE.DR PO SCH (08:53)
[2018-06-23] MEDS: MULTIVITAMIN with MINERAL TABLET. PO SCH (08:54)
[2018-06-23] MEDS: rOPINIRole 1 MG TABLET. PO SCH ×2 (08:54→20:53)
[2018-06-23] MEDS: AMOXICILLIN/K CLAV 875/125MG TABLET. PO SCH ×2 (08:54→20:53)
[2018-06-23] MEDS: LINAGLIPTIN 5 MG TABLET PO SCH (08:54)
[2018-06-23] MEDS: PROPRANOLOL 40 MG TABLET. PO SCH ×2 (08:54→20:53)
[2018-06-23] MEDS: INSULIN LISPRO 300 UNITS/3 ML INSULN.PEN. SQ SCH ×3 (09:05→17:32)
--- NOTE | 2018-06-23 09:29 | PDOC ---
PROGRESS NOTES Chief Complaint Chief Complaint A/P: mild-moderate expressive aphasia w/ noted impairment in word-finding (confrontational and divergent) 06/21 Fall - scalp hematoma and left temporal hemorrhage 3.1 cm by 2.1 cm posterior left temporal lobe hemorrhage and mild hemorrhage in left choroid plexus - , difficult to say if this is traumatic or CVA. Will consult neurology. Now at some risk of seizure, no hx of seizures Headache - likely 2/2 intracranial hemorrhage History of syncope - seen by Dr. Monreal previously, narcolepsy/cataplexy Anxiety - cont home meds Depression - cont home meds Diabetes-Type II - sliding scale basal bolus in hour High Cholesterol - needs high intensity statin Hypertension - will manage in ICU Hypothyroid s/p radioactive iodine ablation - on 175mcg replacement therapy, continue RLS - cont meds if ok with neuro YUKI on CPAP - will not initiate based on intracranial hemorrhage ORTHOSTATIC BP NOTED, HIGH FALL RISK bradycardia to rates of 50HR/ PER HR FEN - Ok for ADA diet PPX - SCDs FULL CODE admission for intracranial hemorrhage, at least 2 midnights CONSULT CARDIOLOGY High risk of recurrent bleeding, vendette, FALLS NEEDS OUT PT SPEECH PATHOLOGY ? WALKER WILL NEED LOOP RECORDER OU-TPT 35 MIN PT EXAM, CHART REVIEW, > 50% OF TIME SPENT WITH EXAM, CHART REVIEW, PT CARE COORDINATION History of Present Illness History of Present Illness Ms Stearns is a 62yo F w/ PMHx Anxiety, Depression, Diabetes-Type II, High Cholesterol, Hypertension, Hypothyroid s/p radioactive iodine ablation, RLS, Syncope, narcolepsy/cataplexy, YUKI on CPAP (about to start using), Obesity s/p gastric bypass who present to ED with progressive confusion and word finding difficulty after a fall @ 7am 06/17/18. She has had a headache for the past 2-3 days as well prior to this. Was seen in [facility] ED after her co-workers noted she was acting strangely yesterday after her fall. She had a negative head CT at the time and was sent home. She is aware of her word finding deficit and finds it frustrating. had headache and was feeling strange this with word finding difficulty and confusion noted by her significant other. Head CT in our ED showed a hemorrhage in the left temporal lobe 3x2cm approximately. CTA negative for occlusion or aneurysm. MRI equivocal for infarct with hemorrhagic conversion vs hematoma. Seen by neuro, BRADYCARDIA OVERNIGHT Plan: neurology following bp control 47 min pt exam, chart review, > 50% of time with exam, chart review, pt care coordination 06/23 REMAINS A FALL RISK LOOP RECORDER PLANNED Vitals Vitals Vital Signs Date Time Temp Pulse Resp B/P (MAP) Pulse Ox O2 Delivery O2 Flow Rate FiO2 06/23/18 08:54 50 160/62 06/23/18 07:00 97.4 16 100 Room Air 97.4 06/22/18 08:00 2.0 Physical Exam General: Alert, Oriented X3, Cooperative, No acute distress Heart: Regular rate, Normal S1, Normal S2 Lungs: Clear Abdomen: Normal bowel sounds, Soft, No tenderness Extremities: No cyanosis, No edema, Normal pulses Skin: No significant lesion Labs LABS Procedure Result URINE CULTURE Final Final report URINE CULTURE RES 1 Final Escherichia coli 50,000-100,000 colony forming units per mL Cefazolin <=4 ug/mL Cefazolin with an JOHN <=16 predicts susceptibility to the oral agents cefaclor, cefdinir, cefpodoxime, cefprozil, cefuroxime, cephalexin, and loracarbef when used for therapy of uncomplicated urinary tract infections due to E. coli, Klebsiella pneumoniae, and Proteus mirabilis. ANTIMICROBIAL SUSCEPTIBILITY Final Comment S = Susceptible; I = Intermediate; R = Resistant P = Positive; N = Negative MICS are expressed in micrograms per mL Antibiotic RSLT#1 RSLT#2 RSLT#3 RSLT#4 Amoxicillin/Clavulanic Acid S<=2 Ampicillin S =4 Cefepime S<=0.12 Ceftriaxone S<=0.25 Cefuroxime S =2 Ciprofloxacin S<=0.25 Ertapenem S<=0.12 Gentamicin S<=1 Imipenem S<=0.25 Levofloxacin S<=0.12 Meropenem S<=0.25 Nitrofurantoin S<=16 Piperacillin/Tazobactam S<=4 Tetracycline S<=1 Tobramycin S<=1 Trimethoprim/Sulfa S<=20 Performed at: - [facility] [address], [place], [place] [id number] Laboratory Tests Test 06/22/18 11:26 06/22/18 17:21 06/22/18 21:06 06/23/18 08:53 Glucose (Fingerstick) 159 mg/dL (70-99) 121 mg/dL (70-99) 271 mg/dL (70-99) 185 mg/dL (70-99) Assessment and Plan Assessmemt and Plan Problems Medical Problems: (1) Confusion Status: Acute (2) Intracranial hemorrhage following injury Status: Acute Comment Review of Relevant I have reviewed the following items francisco (where applicable) has been applied. Labs Laboratory Tests Test 06/21/18 10:21 06/21/18 16:33 06/21/18 20:34 06/22/18 07:54 Glucose (Fingerstick) 258 mg/dL (70-99) 119 mg/dL (70-99) 194 mg/dL (70-99) 155 mg/dL (70-99) Test 06/22/18 11:26 06/22/18 17:21 06/22/18 21:06 06/23/18 08:53 Glucose (Fingerstick) 159 mg/dL (70-99) 121 mg/dL (70-99) 271 mg/dL (70-99) 185 mg/dL (70-99) Laboratory Tests Test 06/22/18 11:26 06/22/18 17:21 06/22/18 21:06 06/23/18 08:53 Glucose (Fingerstick) 159 mg/dL (70-99) 121 mg/dL (70-99) 271 mg/dL (70-99) 185 mg/dL (70-99) Microbiology 06/18/18 Urine Culture - Final, Complete 06/18/18 Urine Culture Result 1 (JOHN) - Final, Complete 06/18/18 Antimicrobic Susceptibility - Final, Complete Medications Current Medications Ondansetron HCl (Zofran) 4 mg 1X ONCE IV Last administered on 06/18/18at 11:18 ; Start 06/18/18 at 11:00; Stop 06/18/18 at 11:01; Status DC Fentanyl Citrate (Fentanyl 2ml Vial) 50 mcg 1X ONCE IV Last administered on at 11:18; Start 06/18/18 at 11:00; Stop 06/18/18 at 11:01; Status DC Info (Review Meds) 1 ea PRN 1X PRN MC SEE COMMENTS; Start 06/18/18 at 11:15 Sodium Chloride (Normal Saline Flush) 3 ml QSHIFT PRN IV AFTER MEDS AND BLOOD DRAWS; Start 06/18/18 at 11:15 Sodium Chloride 1,000 ml @ 100 mls/hr Q10H IV Last administered on 06/19/18at 07:00; Start 06/18/18 at 11:07; Stop 06/19/18 at 12:14; Status DC Acetaminophen (Tylenol Supp) 650 mg PRN Q6HRS PRN OH FEVER > 100.5'F; Start at 11:15 Labetalol HCl (Normodyne Iv Push) 10 mg PRN Q10MIN PRN IVP HTN, SEE COMMENTS, 1st Choice; Start 06/18/18 at 11:15 Hydralazine HCl (Apresoline Inj) 10 mg PRN Q10MIN PRN IVP HYPERTENSION, SEE COMMENTS; Start 06/18/18 at 11:15 Nicardipine HCl 50 mg/Sodium Chloride 250 ml @ 25 mls/hr CONT PRN IV HYPERTENSION, SEE COMMENTS Last administered on 06/18/18at 11:54; Start 06/18/18 at 11:15; Stop 06/20/18 at 16:03; Status DC Ondansetron HCl (Zofran) 4 mg PRN Q6HRS PRN IV NAUSEA/VOMITING; Start 06/18/18 at 11:15 Iohexol (Omnipaque 300 Mg/ml) 75 ml 1X ONCE IV Last administered on 06/18/18at 12:11; Start 06/18/18 at 11:45; Stop 06/18/18 at 11:46; Status DC Info (CONTRAST GIVEN -- Rx MONITORING) 1 each PRN DAILY PRN MC SEE COMMENTS; Start 06/18/18 at 11:45; Stop 06/19/18 at 07:48; Status DC Iohexol (Omnipaque 300 Mg/ml) 75 ml 1X ONCE IV ; Start 06/18/18 at 12:00; Stop 06/18/18 at 12:03; Status DC Info (CONTRAST GIVEN -- Rx MONITORING) 1 each PRN DAILY PRN MC SEE COMMENTS; Start 06/18/18 at 12:15; Stop 06/20/18 at 12:14; Status DC Cetirizine HCl (ZyrTEC) 10 mg PRN DAILY PRN PO Allergy Symptoms Last administered on 06/19/18at 09:49; Start 06/18/18 at 16:45 Levothyroxine Sodium (Synthroid) 175 mcg DAILY07 PO Last administered on at 06:13; Start 06/19/18 at 07:00 Lisinopril (Prinivil) 20 mg DAILY PO Last administered on 06/23/18at 08:53; Start 06/19/18 at 09:00 Vitamin D (Vitamin D3) 1,000 unit DAILY PO Last administered on 06/23/18at 08:53 ; Start 06/19/18 at 09:00 Citalopram Hydrobromide (CeleXA) 40 mg DAILY PO ; Start 06/19/18 at 09:00; Stop 06/19/18 at 11:04; Status DC Multivitamins (Thera M Plus) 1 tab DAILY PO Last administered on 06/23/18at 08: 54; Start 06/19/18 at 09:00 Pantoprazole Sodium (Protonix) 40 mg DAILYAC PO Last administered on 06/23/18at 08:52; Start 06/19/18 at 07:30 Propranolol HCl (Inderal La) 120 mg HS PO ; Start 06/18/18 at 21:00; Stop at 21:00; Status DC Ropinirole HCl (Requip) 2 mg DAILY PO ; Start 06/19/18 at 09:00; Stop 06/19/18 at 09:00; Status DC Simvastatin (Zocor) 20 mg HS PO Last administered on 06/22/18at 21:00; Start at 21:00 Linagliptin (Tradjenta) 5 mg DAILY PO Last administered on 06/23/18at 08:54; Start 06/19/18 at 09:00 Insulin Human Lispro (HumaLOG) 0-5 UNITS TIDWMEALS SQ Last administered on 06/23 09:05; Start 06/18/18 at 17:00 Dextrose (Dextrose 50%-Water Syringe) 12.5 gm PRN Q15MIN PRN IV SEE COMMENTS; Start 06/18/18 at 16:45 Acetaminophen/ Hydrocodone Bitart (Lortab 5/325) 1 tab PRN Q6HRS PRN PO PAIN Last administered on 06/23/18 03:56; Start 06/18/18 at 18:00 Propranolol HCl (Inderal) 40 mg BID PO Last administered on 06/23/18 08:54; Start 06/18/18 at 21:00 Ropinirole HCl (Requip) 2 mg HS PO Last administered on 06/22/18 21:00; Start 06/18/18 at 21:00 Ropinirole HCl (Requip) 1 mg DAILY PO Last administered on 06/23/18 08:54; Start 06/19/18 at 09:00 Duloxetine HCl (Cymbalta) 120 mg DAILY PO Last administered on 06/23/18 08:53 ; Start 06/19/18 at 11:00 Morphine Sulfate (Morphine Sulfate) 4 mg PRN Q4HRS PRN IV PAIN MILD Last administered on 06/20/18 21:12; Start 06/20/18 at 21:00 Sennosides (Senna) 17.2 mg 1X ONCE PO Last administered on 06/21/18 08:59; Start 06/21/18 at 08:00; Stop 06/21/18 at 08:01; Status DC Polyethylene Glycol (miraLAX PACKET) 17 gm 1X ONCE PO Last administered on 15:25; Start 06/21/18 at 08:00; Stop 06/21/18 at 08:01; Status DC Magnesium Citrate (Citroma) 296 ml 1X ONCE PO ; Start 06/21/18 at 08:00; Stop 06/21/18 at 08:01; Status DC Amoxicillin/ Clavulanate Potassium (Augmentin 875/ 125mg) 1 tab BID PO Last administered on 06/23/18 08:54; Start 06/21/18 at 14:15 Lactobacillus Rhamnosus (Culturelle) 1 cap BID PO Last administered on 08:52; Start 06/22/18 at 21:00 Active Scripts Active Reported Gabapentin 100 Mg Capsule 100 Mg PO TID PRN PRN Requip (Ropinirole Hcl) 0.5 Mg Tablet 2 Mg PO DAILY Propranolol Hcl 40 Mg Tablet 1 Tab PO BID Cymbalta (Duloxetine Hcl) 60 Mg Capsule.dr 2 Cap PO DAILY Protonix (Pantoprazole Sodium) 20 Mg Tablet.dr 20 Mg PO DAILY Januvia (Sitagliptin Phosphate) 25 Mg Tablet 50 Mg PO DAILY Metformin Hcl 1,000 Mg Tablet 1,000 Mg PO BIDWMEALS Cetirizine Hcl 10 Mg Tablet 1 Tab PO BID PRN Vitamin D-3 (Cholecalciferol (Vitamin D3)) 2,000 Unit Capsule 1,000 Unit PO DAILY Multi-Vitamin Daily (Multivitamin) 1 Each Tablet 1 Each PO DAILY Simvastatin 20 Mg Tablet 1 Tab PO QHS Requip (Ropinirole Hcl) 1 Mg Tablet 4 Tab PO HS Lisinopril 20 Mg Tablet 1 Tab PO DAILY Levothyroxine Sodium 175 Mcg Tablet 1 Tab PO DAILY Vitals/I & O Vital Sign - Last 24 Hours 06/22/18 06/22/18 06/22/18 06/22/18 11:00 15:00 19:00 20:05 Temp 98.4 98.7 98.2 98.4 98.7 98.2 Pulse 56 88 65 Resp 18 18 18 B/P (MAP) 129/55 (79) 161/71 (101) 130/65 (86) Pulse Ox 100 98 99 O2 Delivery Room Air Room Air Room Air Room Air 06/22/18 06/22/18 06/23/18 06/23/18 21:01 23:00 03:00 03:56 Temp 98.0 97.4 98.0 97.4 Pulse 65 63 50 Resp 18 16 16 B/P (MAP) 130/65 109/52 (71) 160/62 (94) Pulse Ox 98 100 98 O2 Delivery Room Air Room Air Room Air 06/23/18 06/23/18 06/23/18 06/23/18 04:56 07:00 08:53 08:54 Temp 97.4 97.4 Pulse 57 50 50 Resp 16 16 B/P (MAP) 162/75 (104) 160/62 160/62 Pulse Ox 100 O2 Delivery Room Air Room Air Intake and Output 06/22/18 06/22/18 06/23/18 14:59 22:59 06:59 Intake Total 120 ml 460 ml 0 ml Balance 120 ml 460 ml 0 ml ANTONIETA MURRY MD Jun 23, 2018 09:29
[2018-06-23 11:00] VITALS: BP 155/69
--- NOTE | 2018-06-23 12:30 | PDOC ---
PROGRESS NOTES Assessment Assessment Left temporal hemorrhage with vasogenic edema. Fall. Syncopal spell, recurrent. DM. UTI. HTN. HLD. Obesity. RECOMMENDATIONS/PLAN: Avoid antiplatelets and anticoagulant at the present time. Treat medical diseases. Consulted Cardiology. Pain control. EEG on 06/24/18 if still here; otherwise, out-patient base. Discussed with her family at bedside on 06/23/18. 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 Full 14-point review of systems is negative. MEDICATIONS: Refer to MAR PHYSICAL EXAMINATION: General appearance in subacute distress. HEENT: Normocephalic and nontraumatic. Eyes, nose, ears, and throat are unremarkable. Neck is supple. No lymphadenopathy. No bruits are heard over the carotid artery. No Crepitus. Cardiovascular: S1, S2, regular rate and rhythm. Pulmonary: Clear to auscultation bilaterally. Abdomen: Bowel sounds are positive. Abdomen is soft, nontender, and nondistended. Extremities: No rash, lesions, or edema. No restriction of range of motion NEUROLOGICAL EXAMINATION: Alert. Oriented to time, place and person. PERRL. EOMI. CN: no focal findings. Muscle tone: within normal. Muscle strength: 5 DTR: 2 Plantar reflex: Flexor response bilaterally Gait: At baseline normal. Sensory exam: no abnormal findings. No cerebellar signs elicited. F-T-N test accurate. Objective Objective Vital Signs Date Time Temp Pulse Resp B/P (MAP) Pulse Ox O2 Delivery O2 Flow Rate FiO2 06/23/18 08:54 50 160/62 06/23/18 08:00 Room Air 2.0 06/23/18 07:00 97.4 16 100 97.4 Intake and Output 06/23/18 07:00 Intake Total 580 ml Balance 580 ml Intake Oral 580 ml # Voids 2 Vitals Signs Vitals VS - Last 72 Hours, by Label Date Time Temp Pulse Resp B/P (MAP) Pulse Ox O2 Delivery O2 Flow Rate FiO2 06/23/18 08:54 50 160/62 06/23/18 08:53 50 160/62 06/23/18 08:00 Room Air 2.0 06/23/18 07:00 97.4 57 16 162/75 (104) 100 Room Air 97.4 06/23/18 04:56 16 Room Air 06/23/18 03:56 16 98 Room Air 06/23/18 03:00 97.4 50 16 160/62 (94) 100 Room Air 97.4 06/22/18 23:00 98.0 63 18 109/52 (71) 98 Room Air 98.0 06/22/18 21:01 65 130/65 06/22/18 20:05 Room Air 06/22/18 19:00 98.2 65 18 130/65 (86) 99 Room Air 98.2 06/22/18 15:00 98.7 88 18 161/71 (101) 98 Room Air 98.7 06/22/18 11:00 98.4 56 18 129/55 (79) 100 Room Air 98.4 06/22/18 09:11 59 128/47 06/22/18 09:10 59 128/47 06/22/18 08:00 Room Air 2.0 06/22/18 07:00 97.9 59 18 128/47 (74) 100 Room Air 97.9 Laboratory Laboratory Laboratory Tests Test 06/22/18 17:21 06/22/18 21:06 06/23/18 08:53 06/23/18 11:39 Glucose (Fingerstick) 121 mg/dL (70-99) 271 mg/dL (70-99) 185 mg/dL (70-99) 165 mg/dL (70-99) Microbiology 06/18/18 Urine Culture - Final, Complete 06/18/18 Urine Culture Result 1 (JOHN) - Final, Complete 06/18/18 Antimicrobic Susceptibility - Final, Complete Medication Medications Current Medications Lactobacillus Rhamnosus (Culturelle) 1 cap BID PO Last administered on at 08:52; Start 06/22/18 at 21:00 Comment Review of Relevant I have reviewed the following items francisco (where applicable) has been applied. KAITLIN BARRAZA MD Jun 23, 2018 12:30
[2018-06-23 15:00] VITALS: BP 142/73
[2018-06-23 19:52] VITALS: BP 121/71
[2018-06-23] MEDS: SIMVASTATIN 20 MG TABLET PO SCH (20:52)
[2018-06-23 23:50] VITALS: BP 133/63
[2018-06-24] MEDS: HYDROcodone/APAP 5/325MG 1 TAB TABLET PO PRN (01:51)
[2018-06-24 03:35] VITALS: BP 145/64
[2018-06-24 07:00] VITALS: BP 139/75
[2018-06-24] MEDS: PANTOPRAZOLE 40 MG TABLET.DR. PO SCH (07:33)
[2018-06-24] MEDS: LEVOTHYROXINE 175 MCG TABLET PO SCH (07:33)
[2018-06-24] MEDS: INSULIN LISPRO 300 UNITS/3 ML INSULN.PEN. SQ SCH ×2 (08:00→12:09)
--- NOTE | 2018-06-24 08:45 | CARD ---
MR#: [id number] Account#: Date of Study: 06/23/2018 Ordering Physician: [place]: Jesika Rosas RDCS APPROVED REPORT EXAM: Two-dimensional and M-mode echocardiogram with Doppler and color Doppler. Other Information Quality : AverageHR: 60bpm INDICATION Syncope RISK FACTORS Hypertension Obesity 2D DIMENSIONS RVDd3.6 (2.9-3.5cm)Left Atrium(2D)4.4 (1.6-4.0cm) IVSd0.9 (0.7-1.1cm)Aortic Root(2D)3.3 (2.0-3.7cm) LVDd4.4 (3.9-5.9cm)LVOT Diameter2.0 (1.8-2.4cm) PWd1.0 (0.7-1.1cm)LVDs3.0 (2.5-4.0cm) FS (%) 32.2 %SV53.5 ml LVEF(%)60.6 (>50%) Aortic Valve AoV Peak Stefan.158.8cm/Riley Peak GR.11.2mmHg LVOT Peak Stefan.93.2cm/sAVA (VMAX)1.83cm2 Mitral Valve MV E Asaymwfg62.2cm/sMV DECEL [id number] MV A Biuuxani45.2cm/sE/A Ratio1.0 MV A Kuueghfn251th Pulmonary Valve PV Peak Spqtrsgv661.5cm/s Tricuspid Valve TR P. Aqmzhjpv136zg/sTR Peak Gr.15mmHg Pulmonary Vein S1 Qkmtfykk76.1cm/sD2 Quhruigz99.1cm/s PVa [id number] LEFT VENTRICLE The left ventricle is normal size. There is normal left ventricular wall thickness. The left ventricu lar systolic function is normal and the ejection fraction is within normal range. Estimated ejection fraction is 55-60%. There is normal LV segmental wall motion. The left ventricular diastolic function and filling is normal for age. RIGHT VENTRICLE The right ventricle is normal size. There is normal right ventricular wall thickness. The right ventr icular systolic function is normal. ATRIA The left atrium size is normal. The right atrium size is normal. The interatrial septum is intact wit h no evidence for an atrial septal defect or patent foramen ovale as noted on 2-D or Doppler imaging. AORTIC VALVE The aortic valve is normal in structure and function. Doppler and Color Flow revealed trace aortic re gurgitation. There is no significant aortic valvular stenosis. MITRAL VALVE The mitral valve is normal in structure and function. There is no mitral valve stenosis. Doppler and Color-flow revealed trace to mild mitral regurgitation. TRICUSPID VALVE The tricuspid valve is normal in structure and function. Doppler and Color Flow revealed mild tricusp id regurgitation. Estimated PAP 18 mmHg. There is no tricuspid valve prolapse or vegetation. PULMONIC VALVE The pulmonary valve is normal in structure and function. Mild pulmonic insufficiency. There is no pul lina valvular stenosis. GREAT VESSELS The aortic root is normal in size. The ascending aorta is normal in size. The IVC is normal in size a nd collapses >50% with inspiration. PERICARDIAL EFFUSION There is no pleural effusion. There is no evidence of significant pericardial effusion. Critical Notification Critical Value: No <Conclusion> The left ventricular systolic function is normal and the ejection fraction is within normal range. E stimated ejection fraction is 55-60%. There is normal LV segmental wall motion. Mild pulmonic insufficiency. Signed by : Lee Posey, Electronically Approved : 06/23/2018 11:54:22
[2018-06-24] MEDS: MULTIVITAMIN with MINERAL TABLET. PO SCH (09:03)
[2018-06-24] MEDS: LACTOBACILLUS RHAMNOSUS GG 1 CAPSULE. PO SCH (09:03)
[2018-06-24] MEDS: CHOLECALCIFEROL (VITAMIN D3) 1,000 UNIT TABLET PO SCH (09:03)
[2018-06-24] MEDS: LINAGLIPTIN 5 MG TABLET PO SCH (09:03)
[2018-06-24] MEDS: DULoxetine HCL 30 MG CAPSULE.DR PO SCH (09:03)
[2018-06-24] MEDS: LISINOPRIL 20 MG TABLET PO SCH (09:03)
[2018-06-24] MEDS: rOPINIRole 1 MG TABLET. PO SCH (09:03)
[2018-06-24] MEDS: AMOXICILLIN/K CLAV 875/125MG TABLET. PO SCH (09:03)
[2018-06-24] MEDS: PROPRANOLOL 40 MG TABLET. PO SCH (09:04)
--- NOTE | 2018-06-24 13:37 | PDOC3 ---
Discharge Summary Visit Information Date of Admission: Jun 18, 2018 Date of Discharge: Jun 24, 2018 Admitting Diagnosis: fall, confusion Final Diagnosis mild-moderate expressive aphasia w/ noted impairment in word-finding (confrontational and divergent) 06/21 Fall - scalp hematoma and left temporal hemorrhage 3.1 cm by 2.1 cm posterior left temporal lobe hemorrhage and mild hemorrhage in left choroid plexus - , difficult to say if this is traumatic or CVA. Will consult neurology. Now at some risk of seizure, no hx of seizures Headache - likely 2/2 intracranial hemorrhage History of syncope - seen by Dr. Monreal previously, narcolepsy/cataplexy Anxiety - cont home meds Depression - cont home meds Diabetes-Type II - sliding scale basal bolus in hour High Cholesterol - needs high intensity statin Hypertension - will manage in ICU Hypothyroid s/p radioactive iodine ablation - on 175mcg replacement therapy, continue RLS - cont meds if ok with neuro YUKI on CPAP - will not initiate based on intracranial hemorrhage ORTHOSTATIC BP NOTED, HIGH FALL RISK bradycardia to rates of 50HR/ PER HR FEN - Ok for ADA diet PPX - SCDs FULL CODE admission for intracranial hemorrhage, at least 2 midnights CONSULT CARDIOLOGY High risk of recurrent bleeding, drosser, FALLS NEEDS OUT PT SPEECH PATHOLOGY ? WALKER WILL NEED LOOP RECORDER OU-TPT 35 MIN PT EXAM, CHART REVIEW, > 50% OF TIME SPENT WITH EXAM, CHART REVIEW, PT CARE COORDINATION Problems Medical Problems: (1) Confusion Status: Acute (2) Intracranial hemorrhage following injury Status: Acute Brief Hospital Course Allergies Allergies Coded Allergies Type Severity Reaction Last Updated Verified No Known Drug Allergies 05/11/14 No Vital Signs Vital Signs Date Time Temp Pulse Resp B/P (MAP) Pulse Ox O2 Delivery O2 Flow Rate FiO2 06/24/18 09:04 60 139/75 06/24/18 07:59 Room Air 06/24/18 07:00 97.9 16 98 97.9 06/23/18 08:00 2.0 Lab Results Laboratory Tests Test 06/22/18 17:21 06/22/18 21:06 06/23/18 08:53 06/23/18 11:39 Glucose (Fingerstick) 121 mg/dL (70-99) 271 mg/dL (70-99) 185 mg/dL (70-99) 165 mg/dL (70-99) Test 06/23/18 16:23 06/23/18 19:11 06/24/18 07:15 06/24/18 12:04 Glucose (Fingerstick) 181 mg/dL (70-99) 174 mg/dL (70-99) 136 mg/dL (70-99) 160 mg/dL (70-99) Laboratory Tests Test 06/23/18 16:23 06/23/18 19:11 06/24/18 07:15 06/24/18 12:04 Glucose (Fingerstick) 181 mg/dL (70-99) 174 mg/dL (70-99) 136 mg/dL (70-99) 160 mg/dL (70-99) Brief Hospital Course Ms. Stearns is a 62 old female, admit s./p a fall with mental status change had ICH, history of prior Nuro consutl, noted CT results above, did well with PT, needs ST at dc as she still has some expressive aphasia Discharge Information Condition at Discharge: Improved Follow Up: Weeks Disposition/Orders: D/C to Home Scheduled Cholecalciferol (Vitamin D3) (Vitamin D-3) 2,000 Unit Capsule, 1,000 UNIT PO DAILY, (Reported) Entered as Reported by: DAREK GREENBERG on 05/11/142333 Last Action: Converted on 06/18/181636 by NUZHAT WALKER MD Duloxetine Hcl (Cymbalta) 60 Mg Capsule.dr, 2 CAP PO DAILY for depression, #90 Ref 3 (Reported) Entered as Reported by: GEORGES FRANCISCO on 06/18/181945 Last Taken: Unknown Dose on 06/17/18 0900 Last Action: New Order on 06/18/181945 by GEORGES FRANCISCO Levothyroxine Sodium (Levothyroxine Sodium) 175 Mcg Tablet, 1 TAB PO DAILY, #30 Ref 5 (Reported) Entered as Reported by: DAREK GREENBERG on 05/11/142333 Last Action: Continued on 06/18/181636 by NUZHAT WALKER MD Lisinopril (Lisinopril) 20 Mg Tablet, 1 TAB PO DAILY, #30 Ref 5 (Reported) Entered as Reported by: DAREK GREENBERG on 05/11/142333 Last Action: Continued on 06/18/181636 by NUZHAT WALKER MD Metformin Hcl (Metformin Hcl) 1,000 Mg Tablet, 1,000 MG PO BIDWMEALS for diabetes, (Reported) Entered as Reported by: GEORGES FRANCISCO on 06/18/181612 Last Taken: Unknown Dose on 06/17/18 1800 Last Action: HELD on 06/18/181635 by NUZHAT WALKER MD Multivitamin (Multi-Vitamin Daily) 1 Each Tablet, 1 EACH PO DAILY, (Reported) Entered as Reported by: DAREK GREENBERG on 05/11/142333 Last Action: Converted on 06/18/181636 by NUZHAT WALKER MD Pantoprazole Sodium (Protonix) 20 Mg Tablet.dr, 20 MG PO DAILY for stomach, (Reported) Entered as Reported by: GEORGES FRANCISCO on 06/18/181613 Last Taken: Unknown Dose on 06/17/18 0900 Last Action: Converted on 06/18/181636 by NUZHAT WALKER MD Propranolol Hcl (Propranolol Hcl) 40 Mg Tablet, 1 TAB PO BID for symptoms, #60 Ref 5 (Reported) Entered as Reported by: GEORGES FRANCISCO on 06/18/181945 Last Action: New Order on 06/18/181945 by GEORGES FRANCISCO Ropinirole Hcl (Requip) 1 Mg Tablet, 4 TAB PO HS for restless leg, #30 Ref 2 (Reported) Entered as Reported by: DAREK GREENBERG on 05/11/142333 Last Action: Edited on 06/18/181945 by GEORGES FRANCISCO Ropinirole Hcl (Requip) 0.5 Mg Tablet, 2 MG PO DAILY for restless leg, (Reported) Entered as Reported by: GEORGES FRANCISCO on 06/18/181945 Last Taken: Unknown Dose on 06/17/18 09 Last Action: New Order on 06/18/181945 by GEORGES FRANCISCO Simvastatin (Simvastatin) 20 Mg Tablet, 1 TAB PO QHS, #30 Ref 5 (Reported) Entered as Reported by: DAREK GREENBERG on 05/11/142333 Last Action: Converted on 06/18/181636 by NUZHAT WALKER MD Sitagliptin Phosphate (Januvia) 25 Mg Tablet, 50 MG PO DAILY for diabetes, (Reported) Entered as Reported by: GEORGES FRANCISCO on 06/18/18 1613 Last Taken: Unknown Dose on 06/17/18 0900 Last Action: Edited on 06/18/181945 by GEORGES FRANCISCO Scheduled PRN Cetirizine Hcl (Cetirizine Hcl) 10 Mg Tablet, 1 TAB PO BID PRN for symptoms, #30 Ref 5 (Reported) Entered as Reported by: DAREK GREENBERG on 05/11/142333 Last Action: Continued on 06/18/181636 by NUZHAT WALKER MD Gabapentin (Gabapentin) 100 Mg Capsule, 100 MG PO TID PRN PRN for PAIN, (Reported) Entered as Reported by: GEORGES FRANCISCO on 06/18/181945 Last Taken: Unknown Dose on 06/16/18 Last Action: New Order on 06/18/181945 by GEORGES FRANCISCO Discontinued Medications Citalopram Hydrobromide (Citalopram Hbr) 40 Mg Tablet, 1 TAB PO DAILY, #90 Ref 1 (Reported) Entered as Reported by: DAREK GREENBERG on 05/11/142333 Last Action: Discontinued on 06/18/181945 by GEORGES FRANCISCO Propranolol Hcl (Propranolol Hcl) 80 Mg Cap.sa.24h, 120 MG PO HS, #90 Ref 1 (Reported) Entered as Reported by: DAREK GREENBERG on 05/11/142333 Last Action: Discontinued on 06/18/181945 by GEORGES FRANCISCO Patient Instructions Patient Instructions > 30 min, coordination of care, EEG pending JONATHON LAGUERRE MD Jun 24, 2018 13:37
--- NOTE | 2018-06-24 14:19 | PDOC ---
PROGRESS NOTES Assessment Assessment Left temporal hemorrhage with vasogenic edema. Fall. Recurrent syncopal spells. DM. UTI. HTN. HLD. Obesity. RECOMMENDATIONS/PLAN: Avoid antiplatelets and anticoagulant at the present time. Treat medical diseases. Consulted Cardiology. Pain control. EEG on 06/24/18. LTM VEEG may be considered. FU with PCP. FU with Cardiology. FU with Dr. Monreal in [facility] in 1 month. Discussed with her again at bedside on 06/24/18. 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 Full 14-point review of systems is negative. MEDICATIONS: Refer to [facility] PHYSICAL EXAMINATION: General appearance in subacute distress. HEENT: Normocephalic and nontraumatic. Eyes, nose, ears, and throat are unremarkable. Neck is supple. No lymphadenopathy. No bruits are heard over the carotid artery. No Crepitus. Cardiovascular: S1, S2, regular rate and rhythm. Pulmonary: Clear to auscultation bilaterally. Abdomen: Bowel sounds are positive. Abdomen is soft, nontender, and nondistended. Extremities: No rash, lesions, or edema. No restriction of range of motion NEUROLOGICAL EXAMINATION: Alert. Oriented to time, place and person. PERRL. EOMI. CN: no focal findings. Muscle tone: within normal. Muscle strength: 5 DTR: 2 Plantar reflex: Flexor response bilaterally Gait: At baseline normal. Sensory exam: no abnormal findings. No cerebellar signs elicited. F-T-N test accurate. Objective Objective Vital Signs Date Time Temp Pulse Resp B/P (MAP) Pulse Ox O2 Delivery O2 Flow Rate FiO2 06/24/18 09:04 60 139/75 06/24/18 07:59 Room Air 06/24/18 07:00 97.9 16 98 97.9 06/23/18 08:00 2.0 Intake and Output 06/24/18 06:59 Intake Total 250 ml Balance 250 ml Intake Oral 250 ml Vitals Signs Vitals VS - Last 72 Hours, by Label Date Time Temp Pulse Resp B/P (MAP) Pulse Ox O2 Delivery O2 Flow Rate FiO2 06/24/18 09:04 60 139/75 06/24/18 09:03 60 139/75 06/24/18 07:59 Room Air 06/24/18 07:00 97.9 60 16 139/75 (96) 98 Room Air 97.9 06/24/18 03:35 97.6 52 18 145/64 (91) 99 Room Air 97.6 06/24/18 01:51 Room Air 06/23/18 23:50 98.0 57 18 133/63 (86) 100 Room Air 98.0 06/23/18 20:53 67 121/71 06/23/18 20:00 Room Air 06/23/18 19:52 98.3 67 20 121/71 (88) 96 Room Air 98.3 06/23/18 15:00 97.8 61 16 142/73 (96) 98 Room Air 97.8 06/23/18 11:00 98.2 60 16 155/69 (97) 98 Room Air 98.2 06/23/18 08:54 50 160/62 06/23/18 08:53 50 160/62 06/23/18 08:00 Room Air 2.0 06/23/18 07:00 97.4 57 16 162/75 (104) 100 Room Air 97.4 Laboratory Laboratory Laboratory Tests Test 06/23/18 16:23 06/23/18 19:11 06/24/18 07:15 06/24/18 12:04 Glucose (Fingerstick) 181 mg/dL (70-99) 174 mg/dL (70-99) 136 mg/dL (70-99) 160 mg/dL (70-99) Microbiology 06/18/18 Urine Culture - Final, Complete 06/18/18 Urine Culture Result 1 (JOHN) - Final, Complete 06/18/18 Antimicrobic Susceptibility - Final, Complete Comment Review of Relevant I have reviewed the following items francisco (where applicable) has been applied. KAITLIN MONREAL MD Jun 24, 2018 14:19
[2018-06-24 15:00] VITALS: BP 106/43
--- NOTE | 2018-06-24 16:20 | EEG ---
DATE OF SERVICE: 06/24/2018 EEG NUMBER: [id number] OBJECTIVE: This is a 62-year-old female patient with recurrent syncopal versus seizure-like episodes. EEG was requested to help rule out seizure. METHODS: Twenty electrodes were applied according to the international 10-20 electrode placement system. EKG monitoring, hyperventilation, intermittent photic stimulation, monopolar and bipolar montages are routinely utilized. The record was obtained on a digital system with video monitoring. FINDINGS: 1. Background: The patient was recorded in the awake, drowsy, and sleep states. The overall background amplitude is 10-30 microvolts. A posterior dominant rhythm of 8-10 Hz is observed. 2. Abnormalities: No specific epileptiform discharge or electrographic seizure is seen. No focal or diffuse slowing. 3. Activation: Hyperventilation was performed with good efforts and normal response. Intermittent photic stimulation was performed with photic driving. No specific epileptiform discharge or electrographic seizure induced by hyperventilation or intermittent photic stimulation. IMPRESSION: This EEG is a normal study for the awake, drowsy, and sleep states. No focal, lateralizing, specific epileptiform discharge or electrographic seizure is seen. Suggest a long-term video EEG monitoring. KAITLIN BARRAZA MD DR: MOIRA/patsy JOB#: [id number] / [id number] JONE
--- NOTE | 2018-06-24 16:30 | NUR ---
Discharge Note: NIKI GRESHAM Discharge instructions and discharge home medications reviewed with Patient and a copy given. All questions have been answered and understanding verbalized. The following instructions and handouts were given: discharge instructions, prescription, education and follow up recommendations. Discontinued lines and drains: Peripheral IV discontinued intact. Patient discharged to Home or Self Care with Spouse via Wheelchair off unit by RN.
== END 2018-06-24 16:34 | disposition home or self-care (01) | DRG 82 ==
LOC: ER 09:33 → ED HOLD 10:54 → 1 WEST ICU 12:13 → 6 SOUTH 06-19 16:51
PROVIDERS: ADMIT Internal Medicine; ATTEND Internal Medicine
DX: S06.359A Traumatic hemorrhage of left cerebrum with loss of consciousness of unspecified duration, initial encounter (principal); G93.41 Metabolic encephalopathy; G93.6 Cerebral edema; R47.01 Aphasia; N39.0 Urinary tract infection, site not specified; I95.1 Orthostatic hypotension; E11.9 Type 2 diabetes mellitus without complications; E89.0 Postprocedural hypothyroidism; I10 Essential (primary) hypertension; E78.5 Hyperlipidemia, unspecified; F32.9 Major depressive disorder, single episode, unspecified; F41.9 Anxiety disorder, unspecified; E78.00 Pure hypercholesterolemia, unspecified; G25.81 Restless legs syndrome; Z90.49 Acquired absence of other specified parts of digestive tract; Z82.3 Family history of stroke; Z98.84 Bariatric surgery status; G47.33 Obstructive sleep apnea (adult) (pediatric); E66.9 Obesity, unspecified; Z68.34 Body mass index [BMI] 34.0-34.9, adult; M19.90 Unspecified osteoarthritis, unspecified site; W18.39XA Other fall on same level, initial encounter; Y93.89 Activity, other specified; Y92.89 Other specified places as the place of occurrence of the external cause; Y99.8 Other external cause status; Z82.49 Family history of ischemic heart disease and other diseases of the circulatory system
CPT/HCPCS: 36415; 70450; 70496; 70498; 70551; 73620; 80053; 80061; 81001; 82962; 84484; 85025; 85610; 85730; 87086; 87186; 87641; 93005; 93306; 95816; 96361; 96374; 96375; 99291; 99292; J1815; J2270; J2405; J3010; J7030; J7050; Q9967; 92507; 92523; 92610; 97530

== ENCOUNTER → 2018-07-26 | Outpatient (CLI) | payer OTHER ==
[~2018-07-26] MED LIST changes: +DULO60CA6 PO; +GABA100C6 PO; +METF10007 PO; +PANT20TA2 PO; +PROP40TA PO; +ROPI0.5T PO; +SITA25TA PO
--- NOTE | 2018-07-26 11:45 | RAD ---
CT of the head without contrast, 07/26/2018: HISTORY: Follow-up intracranial hemorrhage Noncontrast scans were obtained and compared to a study from 06/19/2018. The posterior left temporal lobe hemorrhage evident on the previous study has resolved. There is no evidence of significant residual edema or mass effect. There are minimal deep white matter lucencies, more so on the left, compatible with chronic ischemic change. The ventricles are within normal limits in size. There is no shift of the midline structures. No abnormal extra-axial fluid collection or mass is seen. There is calcific plaquing of the distal internal carotid and vertebral arteries. IMPRESSION: 1. Resolution of the previously seen left temporal lobe hemorrhage. 2. No new intracranial abnormality is detected. PQRS Compliance Statement: One or more of the following individualized dose reduction techniques were utilized for this examination: 1. Automated exposure control 2. Adjustment of the mA and/or kV according to patient size 3. Use of iterative reconstruction technique Electronically signed by: Lalo Valdez MD (07/26/2018 11:42 AM) [facility]
== END | disposition home or self-care (01) ==
LOC: CT 11:11
PROVIDERS: ATTEND Psychiatry & Neurology Neurology
DX: I61.9 Nontraumatic intracerebral hemorrhage, unspecified (principal)
CPT/HCPCS: 70450

== ENCOUNTER → 2018-08-02 | Outpatient (CLI) | payer OTHER ==
--- NOTE | 2018-08-14 11:52 | EEG ---
DATE OF SERVICE: 08/02/2018 DATE OF EE08/02/2018. EEG NUMBER: [id number]. OBJECTIVE: This is a 62-year-old female patient with syncopal or seizure-like episodes. EEG was requested to help rule out seizure. METHODS: Twenty electrodes were applied according to the international 10-20 electrode placement system. EKG monitoring, hyperventilation, intermittent photic stimulation and monopolar and bipolar montages are routinely utilized. The record was obtained on a digital system with video monitoring. MEDICATIONS: No anti-seizure medication. FINDINGS: 1. Background: The patient was recorded in the awake, drowsy and sleep states. The overall background amplitude is 10-20 microvolts. A posterior dominant rhythm of 8-10 Hz is observed with superimposed fast activity in the Beta frequency. 2. Abnormalities: No specific epileptiform discharge or electrographic seizure is seen. No focal or diffuse slowing. 3. Activation: Hyperventilation was performed with fair efforts and normal response. Intermittent photic stimulation was performed with photic driving. No specific epileptiform discharge or electrographic few seizure induced by hyperventilation or intermittent photic stimulation. IMPRESSION: This EEG is within the broad normal limits of the study for the awake, drowsy and sleep states. No focal, lateralizing, specific epileptiform discharge or electrographic seizure is seen. Fast activity in the Beta frequency noted. KAITLIN BARRAZA MD DR: MOIRA/patsy JOB#: [id number] / [id number] JONE
== END | disposition home or self-care (01) ==
LOC: RT 11:22
PROVIDERS: ATTEND Psychiatry & Neurology Neurology
DX: I61.9 Nontraumatic intracerebral hemorrhage, unspecified (principal); R55 Syncope and collapse
CPT/HCPCS: 95816

== ENCOUNTER → 2018-09-16 | Outpatient (CLI) | payer OTHER ==
--- NOTE | 2018-09-19 22:59 | EEG ---
DATE OF SERVICE: 09/16/2018 EEG DATE: 09/16/2018 to 09/17/2018. OBJECTIVE: This is a 63-year-old female patient with syncopal or seizure-like episodes. EEG was requested to evaluate the seizure activity. METHODS: Twenty electrodes were applied according to the international 10-20 electrode placement system. EKG monitoring, hyperventilation, intermittent photic stimulation, monopolar and bipolar montages are routinely utilized. The record was obtained on a digital system with video monitoring. This is a long-term video EEG study with a total video monitoring and EEG recording time of 29 hours and 23 minutes from 09/16/2018 to 09/17/2018. MEDICATIONS: Keppra. FINDINGS: 1. Background: The patient was recorded in the awake, drowsy and sleep states. The overall background amplitude is 10-20 microvolts. A posterior dominant rhythm of 9-12 Hz is observed. 2. Abnormalities: There is relative frequent occipital intermittent rhythmic delta activity during the sleep state, occasionally observed during the awake state. No clinical seizure observed during OIRDA. No focal or diffuse slowing. 3. Activation: Hyperventilation was performed with good efforts and normal response. Intermittent photic stimulation was performed with photic driving. No specific epileptiform discharge or electrographic seizure induced by hyperventilation or intermittent photic stimulation. IMPRESSION: This is a long-term video EEG study with total video monitoring and EEG recording time of 29 hours and 23 minutes from 09/16/2018 to 09/17/2018. This long-term video EEG study is considered falling into the abnormal category of the study for the awake, drowsy and sleep states. There is relatively frequent occipital intermittent rhythmic delta activity at O1 and O2 readings during sleep state, occasionally seen during the awake state. No clinical seizure observed during the entire recording. No focal, lateralizing or electrographic seizure is seen. However, the occipital intermittent rhythmic delta activity may be considered as increased risk of seizure. KAITLIN BARRAZA MD DR: MOIRA/patsy JOB#: [id number] / [id number] JONE
== END | disposition home or self-care (01) ==
LOC: SLPLAB 05:30
PROVIDERS: ATTEND Psychiatry & Neurology Neurology
DX: R56.9 Unspecified convulsions (principal); R55 Syncope and collapse
CPT/HCPCS: 95951

== ENCOUNTER → 2018-12-03 | Outpatient (CLI) | payer OTHER ==
[~2018-12-03] MED LIST changes: -GLIM4TAB2 PO; +GLIM4TAB4 PO
[2018-12-03 17:09] LABS: ALBUMIN 3.7 g/dL (3.4-5.0); CALCIUM 9.4 mg/dL (8.5-10.1); GFR 56.4; TOTAL BILIRUBIN 0.3 mg/dL (0.2-1.0); TOTAL PROTEIN 7.3 g/dL (6.4-8.2)
== END | disposition home or self-care (01) ==
LOC: LAB 16:34
PROVIDERS: ATTEND Psychiatry & Neurology Neurology
DX: R56.9 Unspecified convulsions (principal)
CPT/HCPCS: 36415; 80053